=== PATIENT | male | born 1995 | race Caucasian/White ===

== ENCOUNTER 2016-12-02 06:31 | Emergency (ER) | payer SELFPAY ==
[~2016-12-02] VITALS: Ht 182.9 cm; Wt 70.0 kg
[~2016-12-02 06:31] MED LIST: INFL100P IV
[2016-12-02 06:33] VITALS: BP 131/78; PULSE 70; RESP 16; TEMP 98.8; O2SAT 100
[2016-12-02] MEDS ORDERED: SODIUM CHLOR 0.9% 1000 ML INJ 1,000 ML IV SCH (07:04)
[2016-12-02] MEDS ORDERED: ONDANSETRON HCL 4 MG/2 ML VIAL IVP ONE (07:15)
[2016-12-02] MEDS ORDERED: SODIUM CHLORIDE 0.9% FLUSH 10 ML FLUSH IV FLUSH PRN (07:15)
[2016-12-02 07:36] VITALS: BP 108/66; PULSE 75; RESP 15; O2SAT 100
[2016-12-02 07:38] LABS: AUTOMATED NEUTROPHIL # 6.8 TH/MM3 (1.8-7.7); BASOPHIL # 0.1 TH/MM3 (0-0.2); BASOPHIL % 0.6 % (0.0-2.0); EOSINOPHIL # 0.2 TH/MM3 (0-0.4); EOSINOPHIL % 2.3 % (0.0-4.0); HEMATOCRIT 33.1 % (39.0-51.0); HEMO FLAGS DIFF FINAL; LYMPH % 13.5 % (9.0-44.0); LYMPHOCYTE # 1.3 TH/MM3 (1.0-4.8); MEAN CELL VOLUME 62.6 FL (80.0-100.0); MEAN CORPUSCULAR HEMOGLOBIN 19.1 PG (27.0-34.0); MEAN CORPUSCULAR HGB CONC 30.5 % (32.0-36.0); MONO % 13.3 % (0.0-8.0); NEUT % 70.3 % (16.0-70.0); PLATELET COUNT 453 TH/MM3 (150-450); RED BLOOD COUNT 5.28 MIL/MM3 (4.50-5.90); WHITE BLOOD COUNT 9.7 TH/MM3 (4.0-11.0)
[2016-12-02 07:52] LABS: APTT (PATIENT) 26.1 SEC (24.3-30.1); PROTHROMBIN TIME - PATIENT 11.4 SEC (9.8-11.6)
--- NOTE | 2016-12-02 07:55 | PD ---
HPI Chief Complaint: GI Complaint Time Seen by Provider: 07:13 Travel History International Travel<30 days: No Contact w/Intl Traveler<30days: No Traveled to known affect area: No History of Present Illness HPI Patient is a 21-year-old male with history of Crohn's disease presents to emergency room for evaluation. Patient reports that he is not taking any medications for his current disease for the past 2 years. Patient reports that he did see a painter ski edge in the past, saw Dr. Osborne and changed to Dr Ramsey when he switched from the pediatric painter ski edge to the adult painter ski edge. Patient reports that he lost insurance as it has not had followed-up for the past 2 years. Patient reports that for the past 2 years, since he stopped taking his medications, he has not been feeling well. Patient reports intermittent abdominal pains with diarrhea. Patient reports that he has been feeling intermittently lightheaded over the past 2 years, reports that he is just concerned that his hemoglobin or his electrolytes may be off. Patient reports no abdominal pain at this time, patient here for generalized evaluation as "I just want to get my labs checked." Patient with no other complaints at this time. PFSH Past Medical History Autoimmune Disease: No Cancer: No Cardiovascular Problems: No Diabetes: No Diminished Hearing: No Gastrointestinal Disorders: Yes (POSSIBLE CHRONS OR ULCERATIVE COLITIS) Hepatitis: No Hiatal Hernia: No Medical other: Yes (ULCERATIVE COLITIS) Musculoskeletal: No Neurologic: No Psychiatric: No Respiratory: No Immunizations Current: Yes Thyroid Disease: No Tetanus Vaccination: < 5 Years Influenza Vaccination: No PNEUMOCCOCAL Vaccine (Year): 2 Past Surgical History Abdominal Surgery: Yes (COLONOSCOPYS) Cardiac Surgery: No Ear Surgery: No Eye Surgery: No Genitourinary Surgery: No Neurologic Surgery: No Thoracic Surgery: No Other Surgery: Yes (COLONOSCOPY 09) Social History Alcohol Use: Yes (occ) Tobacco Use: No Substance Use: No Allergies-Medications (Allergen,Severity, Reaction): Coded Allergies: No Known Allergies (Verified , 12/02/16) Reported Meds & Prescriptions Reported Meds & Active Scripts Active No Active Prescriptions or Reported Medications Review of Systems General / Constitutional: No: Fever Eyes: No: Visual changes HENT: No: Headaches Cardiovascular: No: Chest Pain or Discomfort Respiratory: No: Shortness of Breath Gastrointestinal: No: Nausea, Vomiting, Diarrhea, Abdominal Pain, Hematochezia , Constipation Genitourinary: No: Dysuria Musculoskeletal: No: Pain Skin: No Rash Neurologic: Positive: Weakness Psychiatric: No: Depression Endocrine: No: Polydipsia Hematologic/Lymphatic: No: Easy Bruising Physical Exam Narrative GENERAL: No acute distress, nontoxic SKIN: Focused skin assessment warm/dry. HEAD: Atraumatic. Normocephalic. EYES: Pupils equal and round. No scleral icterus. No injection or drainage. ENT: No nasal bleeding or discharge. Mucous membranes pink and moist. NECK: Trachea midline. No JVD. CARDIOVASCULAR: Regular rate and rhythm. No murmur appreciated. RESPIRATORY: No accessory muscle use. Clear to auscultation. Breath sounds equal bilaterally. GASTROINTESTINAL: Abdomen soft, non-tender, nondistended. Hepatic and splenic margins not palpable. MUSCULOSKELETAL: No obvious deformities. No clubbing. No cyanosis. No edema. NEUROLOGICAL: Awake and alert. No obvious cranial nerve deficits. Motor grossly within normal limits. Normal speech. PSYCHIATRIC: Appropriate mood and affect; insight and judgment normal. Data Data Last Documented VS Vital Signs Date Time Temp Pulse Resp B/P Pulse Ox O2 Delivery O2 Flow Rate FiO2 12/02/16 07:36 75 15 108/66 100 Room Air 12/02/16 06:33 98.8 Orders Complete Blood Count With Diff (12/02/16 07:04) Comprehensive Metabolic Panel (12/02/16 07:04) Lipase (12/02/16 07:04) Prothrombin Time / Inr (Pt) (12/02/16 07:04) Act Partial Throm Time (Ptt) (12/02/16 07:04) Urinalysis - C+S If Indicated (12/02/16 07:04) Iv Access Insert/Monitor (12/02/16 07:04) Ecg Monitoring (12/02/16 07:04) Oximetry (12/02/16 07:04) Ondansetron Inj (Zofran Inj) (12/02/16 07:15) Sodium Chlor 0.9% 1000 Ml Inj (Ns 1000 M (12/02/16 07:04) Sodium Chloride 0.9% Flush (Ns Flush) (12/02/16 07:15) Drug Screen, Random Urine (12/02/16 07:04) Mandatory Outpatient Referral (12/02/16 07:55) Electrocardiogram (12/02/16 ) Labs Laboratory Tests Test 12/02/16 12/02/16 07:25 09:25 White Blood Count 9.7 TH/MM3 Red Blood Count 5.28 MIL/MM3 Hemoglobin 10.1 GM/DL Hematocrit 33.1 % Mean Corpuscular Volume 62.6 FL Mean Corpuscular Hemoglobin 19.1 PG Mean Corpuscular Hemoglobin 30.5 % Concent Red Cell Distribution Width 19.0 % Platelet Count 453 TH/MM3 Mean Platelet Volume 7.3 FL Neutrophils (%) (Auto) 70.3 % Lymphocytes (%) (Auto) 13.5 % Monocytes (%) (Auto) 13.3 % Eosinophils (%) (Auto) 2.3 % Basophils (%) (Auto) 0.6 % Neutrophils # (Auto) 6.8 TH/MM3 Lymphocytes # (Auto) 1.3 TH/MM3 Monocytes # (Auto) 1.3 TH/MM3 Eosinophils # (Auto) 0.2 TH/MM3 Basophils # (Auto) 0.1 TH/MM3 CBC Comment DIFF FINAL Differential Comment Prothrombin Time 11.4 SEC Prothromb Time International 1.0 RATIO Ratio Activated Partial 26.1 SEC Thromboplast Time Sodium Level 141 MEQ/L Potassium Level 3.6 MEQ/L Chloride Level 104 MEQ/L Carbon Dioxide Level 30.1 MEQ/L Anion Gap 7 MEQ/L Blood Urea Nitrogen 11 MG/DL Creatinine 1.04 MG/DL Estimat Glomerular Filtration 89 ML/MIN Rate Random Glucose 94 MG/DL Calcium Level 8.7 MG/DL Total Bilirubin 0.2 MG/DL Aspartate Amino Transf 9 U/L (AST/SGOT) Alanine Aminotransferase 17 U/L (ALT/SGPT) Alkaline Phosphatase 100 U/L Total Protein 7.6 GM/DL Albumin 3.3 GM/DL Lipase 111 U/L Urine Color YELLOW Urine Turbidity CLEAR Urine pH 6.0 Urine Specific [place] 1.023 Urine Protein NEG mg/dL Urine Glucose (UA) NEG mg/dL Urine Ketones NEG mg/dL Urine Occult Blood NEG Urine Nitrite NEG Urine Bilirubin NEG Urine Urobilinogen LESS THAN 2.0 MG/DL Urine Leukocyte Esterase NEG Urine RBC LESS THAN 1 /hpf Urine WBC 2 /hpf Urine Mucus FEW /lpf Microscopic Urinalysis Comment CULT NOT INDICATED MDM Medical Decision Making Medical Screen Exam Complete: Yes Emergency Medical Condition: Yes Interpretation(s) EKG at 0825: NSR at 66bpm, qt/qtc: 387/401, no acute st or t wave changes Vital Signs Date Time Temp Pulse Resp B/P Pulse Ox O2 Delivery O2 Flow Rate FiO2 12/02/16 07:36 75 15 108/66 100 Room Air 12/02/16 06:38 16 12/02/16 06:33 98.8 70 16 131/78 100 Room Air Differential Diagnosis Crohn's disease, electrolyte abnormality, anemia Narrative Course 21-year-old male with history of Crohn disease, presents to emergency room for a generalized evaluation. Patient reports that he has not taken any of his medications for Crohn's and has not seen a painter ski edge in the past 2 years due to lack of insurance and medication noncompliance. Patient reports that some of his medicines made him feel sick, he did admit that Remicade did help with the symptoms but since he lost insurance, he has not follow-up with a physician to obtain a prescription. Patient reports that his symptoms have been progressing over the past 2 years, reports that he wanted to come to the emergency room for general labs and to "make sure everything is okay." I discussed with the patient that he will need to follow-up with a painter ski edge for further workup of his Crohn's disease, he understands this but reports no insurance. Plan to order a mandatory GI evaluation as outpt. Hemoglobin 10.1, hematocrit 33.1, platelets 351 bmp: wnl coag's" wnl UA: wnl VSS Patient with no abdominal pain at this time were throughout his emergency room visit. A mandatory consult was placed for painter ski edge. Patient will return to the ER as needed. Signs and symptoms of acute abdomen reviewed with patient Diagnosis Primary Impression: Anemia Qualified Code: D64.9 - Anemia, unspecified type Additional Impression: Crohn disease Qualified Code: K50.919 - Crohn's disease with complication, unspecified gastrointestinal tract location Referrals: Ravi Govea MD Patient Instructions: General Instructions Additional Instructions: Please provide patient with a copy of his labwork at discharge Please follow-up with a painter ski edge as soon as possible A mandatory gastroenterology appointment was ordered while you are at [place] today Please return to the emergency room as needed Scripts No Active Prescriptions or Reported Meds Disposition: 01 DISCHARGE HOME Condition: Stable Elana Galarza DO December 02, 2016 07:55
[2016-12-02 08:04] LABS: ALT (GPT) 17 U/L (12-78); ANION GAP 7 MEQ/L (5-15); AST (GOT) 9 U/L (15-37); BICARBONATE 30.1 MEQ/L (21.0-32.0); BLOOD UREA NITROGEN 11 MG/DL (7-18); CHLORIDE 104 MEQ/L (98-107); GLOMERULAR FILTRATION RATE 89 ML/MIN (>89); POTASSIUM 3.6 MEQ/L (3.5-5.1); SODIUM (NA) 141 MEQ/L (136-145)
[2016-12-02 08:05] LABS: ALKALINE PHOSPHATASE 100 U/L (45-117); TOTAL BILIRUBIN ADULT 0.2 MG/DL (0.2-1.0)
[2016-12-02 09:51] LABS: BLOOD, URINE NEG (NEG); COMMENT (UR) CULT NOT INDICATED; CULTURE IF INDICATED CULT NOT INDICATED; GLUCOSE,URINE NEG (NEG); KETONE, URINE NEG (NEG); MUCUS URINE FEW /lpf (OCC); NITRITE,URINE NEG (NEG); URINE COLOR YELLOW (YELLW/STRAW)
[2016-12-02 14:15] LABS: AMPHETAMINE, URINE NEG (NEG); BARBITURATES, URINE NEG (NEG); COCAINE, URINE NEG (NEG)
--- NOTE | 2016-12-03 12:10 | EKG ---
Date Performed: 12/02/2016 Time Performed: 08:25:31 PTAGE: 21 years EKG: Sinus rhythm NORMAL ECG PREVIOUS TRACING : 12/03/2014 22.12 Compared to prior tracing no significant change DOCTOR: Sylvester Ibarra Interpretating Date/Time 12/03/2016 12:09:59
== END 2016-12-02 10:22 | disposition home or self-care (01) ==
LOC: NEPE 06:31
DX: D64.9 Anemia, unspecified (principal); K50.919 Crohn's disease, unspecified, with unspecified complications
CPT/HCPCS: 80053; 80307; 81001; 83690; 85025; 85610; 85730; 93005; 96361; 96374; 99284; J2405; J7030

== ENCOUNTER 2017-03-03 20:40 | Inpatient (IN) | payer OTHER ==
[~2017-03-03] VITALS: Ht 182.9 cm; Wt 67.6 kg
[~2017-03-03 20:40] MED LIST changes: -INFL100P IV; +IOHEXOL 350 MG/ML 10 ML VIAL (for RAD DIAG) IVCONTRAST ONE
[2017-03-03 20:55] VITALS: BP 114/59; PULSE 86; RESP 18; TEMP 98.3; O2SAT 100
[2017-03-03 22:55] VITALS: BP 155/69; PULSE 98; RESP 18
[2017-03-03] MEDS ORDERED: SODIUM CHLOR 0.9% 1000 ML INJ 1,000 ML IV SCH (23:20)
[2017-03-03] MEDS ORDERED: SODIUM CHLORIDE 0.9% FLUSH 10 ML FLUSH IV FLUSH PRN (23:30)
--- NOTE | 2017-03-03 23:47 | PD ---
HPI Chief Complaint: Abdominal Pain Time Seen by Provider: 23:20 Travel History International Travel<30 days: No Contact w/Intl Traveler<30days: No Traveled to known affect area: No History of Present Illness HPI 21-year-old male presents to the emergency department by private transportation for complaint of 3 weeks of sided abdominal pain with approximately 15 pounds of weight loss. Patient reports that he has a history of Crohn's/ulcerative colitis disease denies any mucoid or bloody stools or fever however states has had chills and that he has not been seen by a automobile body customizer in at least 2 or more years. Patient denies any known dietary indiscretion well water ingestion or foreign travel. Patient has had multiple upper and lower endoscopy studies in the past and was told by his last automobile body customizer that he may have pseudo-polyps or had concern of malignant polyps. Patient did not follow-up with his gastrologist. Patient rates pain as moderate to severe. Patient has had left flank pain as well. Patient denies any chest pain pleuritic chest pain or shortness of breath. Patient's had nausea without vomiting. Patient states that he has not had anorexia infections been very hungry but because of his concern of having diarrhea has intentionally decreased his oral intake. [facility] Past Medical History Narrative Medical Inflammatory bowel disease/pathology 2013 Crohn's colitis, colonoscopy, alcohol use, nursing notes reviewed Autoimmune Disease: No Cancer: No Cardiovascular Problems: No Diabetes: No Diminished Hearing: No Gastrointestinal Disorders: Yes ( CHRONS ) Hepatitis: No Hiatal Hernia: No Medical other: Yes (ULCERATIVE COLITIS) Musculoskeletal: No Neurologic: No Psychiatric: No Respiratory: No Immunizations Current: Yes Thyroid Disease: No Influenza Vaccination: No PNEUMOCCOCAL Vaccine (Year): 2 Past Surgical History Abdominal Surgery: Yes (COLONOSCOPYS) Cardiac Surgery: No Ear Surgery: No Eye Surgery: No Genitourinary Surgery: No Neurologic Surgery: No Thoracic Surgery: No Other Surgery: Yes (COLONOSCOPY 09) Social History Alcohol Use: Yes (occ) Tobacco Use: No Substance Use: No Allergies-Medications (Allergen,Severity, Reaction): Coded Allergies: No Known Allergies (Verified , 03/03/17) Reported Meds & Prescriptions Reported Meds & Active Scripts Active No Active Prescriptions or Reported Medications Review of Systems Except as stated in HPI: all other systems reviewed are Neg General / Constitutional: Positive: Chills, Weight Loss, No: Fever HENT: No: Congestion Cardiovascular: No: Chest Pain or Discomfort Respiratory: No: Shortness of Breath Gastrointestinal: Positive: Nausea, Diarrhea, Abdominal Pain, No: Vomiting, Hematemesis, Hematochezia, Loss of Appetite Genitourinary: No: Dysuria, Decreased Urinary Output Musculoskeletal: No: Pain Skin: No Rash Neurologic: No: Weakness, Dizziness Psychiatric: No: Anxiety Endocrine: No: Heat Intolerance Hematologic/Lymphatic: No: Easy Bruising Physical Exam Narrative GENERAL: Well-developed well-nourished male in no acute distress no respiratory distress SKIN: Warm and dry. HEAD: Normocephalic. EYES: No scleral icterus. No injection or drainage. NECK: Supple, trachea midline. No JVD or lymphadenopathy. CARDIOVASCULAR: Regular rate and rhythm without murmurs, gallops, or rubs. RESPIRATORY: Breath sounds equal bilaterally. No accessory muscle use. GASTROINTESTINAL: Abdomen soft, left lower quadrant tenderness to palpation without guarding or rebound, nondistended. MUSCULOSKELETAL: No cyanosis, or edema. BACK: Nontender without obvious deformity. No CVA tenderness. Data Data Last Documented VS Vital Signs Date Time Temp Pulse Resp B/P (MAP) Pulse Ox O2 Delivery O2 Flow Rate FiO2 03/04/17 01:18 101.0 98 18 144/78 (100) 100 Room Air Orders Orders Complete Blood Count With Diff (03/03/17 23:20) Comprehensive Metabolic Panel (03/03/17 23:20) Lipase (03/03/17 23:20) Lactic Acid (03/03/17 23:20) Prothrombin Time / Inr (Pt) (03/03/17 23:20) Act Partial Throm Time (Ptt) (03/03/17 23:20) Urinalysis - C+S If Indicated (03/03/17 23:20) Iv Access Insert/Monitor (03/03/17 23:20) Ecg Monitoring (03/03/17 23:20) Oximetry (03/03/17 23:20) Sodium Chlor 0.9% 1000 Ml Inj (Ns 1000 M (03/03/17 23:20) Sodium Chloride 0.9% Flush (Ns Flush) (03/03/17 23:30) Blood Culture (03/03/17 23:20) Ct Abd/Pel W Iv Contrast(Rout) (03/04/17 23:20) Iohexol 350 Inj (Omnipaque 350 Inj) (03/03/17 12:44) NPO (03/04/17 01:18) Ns (Bolus) Inj (03/04/17 01:30) Piperacil-Tazo 3.375 Gm Premix (Zosyn 3. (03/04/17 01:30) Acetaminophen Supp (Tylenol Supp) (03/04/17 01:30) Ondansetron Inj (Zofran Inj) (03/04/17 01:30) Morphine Inj (Morphine Inj) (03/04/17 01:30) Labs Laboratory Tests Test 03/03/17 23:30 White Blood Count 10.1 TH/MM3 Red Blood Count 5.64 MIL/MM3 Hemoglobin 10.6 GM/DL Hematocrit 35.7 % Mean Corpuscular Volume 63.3 FL Mean Corpuscular Hemoglobin 18.7 PG Mean Corpuscular Hemoglobin Concent 29.6 % Red Cell Distribution Width 18.1 % Platelet Count 474 TH/MM3 Mean Platelet Volume 6.6 FL Neutrophils (%) (Auto) 81.8 % Lymphocytes (%) (Auto) 6.3 % Monocytes (%) (Auto) 6.9 % Eosinophils (%) (Auto) 2.8 % Basophils (%) (Auto) 2.2 % Neutrophils # (Auto) 8.2 TH/MM3 Lymphocytes # (Auto) 0.6 TH/MM3 Monocytes # (Auto) 0.7 TH/MM3 Eosinophils # (Auto) 0.3 TH/MM3 Basophils # (Auto) 0.2 TH/MM3 CBC Comment AUTO DIFF Differential Comment AUTO DIFF CONFIRMED Platelet Estimate HIGH Platelet Morphology Comment NORMAL Ovalocytes 1+ Prothrombin Time 12.2 SEC Prothromb Time International Ratio 1.1 RATIO Activated Partial Thromboplast Time 28.5 SEC Urine Color YELLOW Urine Turbidity CLEAR Urine pH 5.5 Urine Specific [place] 1.027 Urine Protein NEG mg/dL Urine Glucose (UA) NEG mg/dL Urine Ketones NEG mg/dL Urine Occult Blood NEG Urine Nitrite NEG Urine Bilirubin NEG Urine Leukocyte Esterase NEG Urine RBC 0-3 /hpf Urine WBC 0-2 /hpf Urine Squamous Epithelial Cells 0-5 /hpf Urine Bacteria NONE /hpf Microscopic Urinalysis Comment CULT NOT INDICATED Blood Urea Nitrogen 10 MG/DL Creatinine 0.82 MG/DL Random Glucose 102 MG/DL Total Protein 7.6 GM/DL Albumin 2.6 GM/DL Calcium Level 8.1 MG/DL Alkaline Phosphatase 77 U/L Aspartate Amino Transf (AST/SGOT) 7 U/L Alanine Aminotransferase (ALT/SGPT) 14 U/L Total Bilirubin 0.2 MG/DL Sodium Level 139 MEQ/L Potassium Level 3.8 MEQ/L Chloride Level 104 MEQ/L Carbon Dioxide Level 27.7 MEQ/L Anion Gap 7 MEQ/L Estimat Glomerular Filtration Rate 117 ML/MIN Lactic Acid Level 1.3 mmol/L Lipase 164 U/L [facility] Medical Decision Making Medical Screen Exam Complete: Yes Emergency Medical Condition: Yes Medical Record Reviewed: Yes Interpretation(s) Last Impressions Abdomen/Pelvis CT 03/04/170 Signed Impressions: Service Date/Time: February 00:26 - CONCLUSION: 1. Severe colitis of the left colon associated with extensive inflammatory changes and probable partial obstruction with constipation in the transverse colon and right colon. 2. Mildly distended appendix without significant inflammatory change. Cannot exclude an early appendicitis. Don Rose MD CBC & BMP Diagram 03/03/17 23:30 Total Protein 7.6, Albumin 2.6 L, Calcium Level 8.1 L, Alkaline Phosphatase 77, Aspartate Amino Transf (AST/SGOT) 7 L, Alanine Aminotransferase (ALT/SGPT) 14, Total Bilirubin 0.2 Vital Signs Date Time Temp Pulse Resp B/P (MAP) Pulse Ox O2 Delivery O2 Flow Rate FiO2 03/04/17 00:18 100.0 88 18 141/65 (90) 100 Room Air 03/04/17 00:18 100 Room Air 03/03/17 22:55 98 18 155/69 (97) 03/03/17 20:55 98.3 86 18 114/59 (77) 100 Differential Diagnosis Abdominal pain, colitis/exacerbation of inflammatory bowel disease, abscess, UTI Narrative Course IV access obtained specimens collected and sent for resulting patient given fluid bolus At 1:10 AM blood pressure 144/67 heart rate 94 respiratory rate 18 room air O2 saturation 98%; CT abdomen and pelvis resulted remarkable for marked inflammatory changes of the transverse and ascending colon concern for possible early bowel obstruction also noted appendix is noted as upper limit of normal in size however without inflammatory stranding or changes possible early appendicitis CBC was automated differential total white cell count is normal at 10,100 left shift 81.8% by automated differential mild anemia hemoglobin 10.3 with 35.7% hematocrit platelet count within normal range; complete metabolic panel values are grossly within normal limits; lactic acid is not elevated at 1.3 Patient at 1:20 AM was identified to have a temperature of 10 1F; in view of radiologist reading for possible early appendicitis patient will be kept nothing by mouth additional IV fluid bolus administered 1 L as well as antibiotic Zosyn 3.375 g IV piggyback also administered 1 Tylenol suppository 650 mg rectally and patient will be given a one-time dose of Zofran 4 mg IV and morphine sulfate 2 mg IV. At this point in time patient most likely is presenting a stone history and presentation in location of pain with acute exacerbation of inflammatory bowel disease/ulcerative colitis with severe colitis by imaging study without evidence of perforation or abscess but concern for partial small bowel obstruction however in view of report of early appendicitis well discussed case with [facility] consultant general surgeon; patient is aware that he will be admitted for ongoing bowel rest, IV antibiotics, pain management , antipyretics, and IV fluids. Physician Communication Physician Communication call placed to Gen Surgery --consult in AM for r/o appendicitis; call placed to [facility] service Diagnosis Primary Impression: Acute ulcerative colitis Qualified Codes: K51.919 - Ulcerative colitis, unspecified with unspecified complications Additional Impression: Small bowel obstruction, partial Admitting Information Admitting Physician Requests: Admit Scripts No Active Prescriptions or Reported Meds Sharon Roman MD Mar 03, 2017 23:47
[2017-03-03 23:57] LABS: BLOOD, URINE NEG (NEG); GLUCOSE,URINE NEG (NEG); KETONE, URINE NEG (NEG); NITRITE,URINE NEG (NEG); PH, URINE 5.5 (5.0-8.5)
[2017-03-03 23:58] LABS: AUTOMATED NEUTROPHIL # 8.2 TH/MM3 (1.8-7.7); BASOPHIL # 0.2 TH/MM3 (0-0.2); BASOPHIL % 2.2 % (0.0-2.0); EOSINOPHIL # 0.3 TH/MM3 (0-0.4); EOSINOPHIL % 2.8 % (0.0-4.0); HEMATOCRIT 35.7 % (39.0-51.0); LYMPH % 6.3 % (9.0-44.0); LYMPHOCYTE # 0.6 TH/MM3 (1.0-4.8); MEAN CELL VOLUME 63.3 FL (80.0-100.0); MEAN CORPUSCULAR HEMOGLOBIN 18.7 PG (27.0-34.0); MONO % 6.9 % (0.0-8.0); NEUT % 81.8 % (16.0-70.0); PLATELET COUNT 474 TH/MM3 (150-450); RED BLOOD COUNT 5.64 MIL/MM3 (4.50-5.90); RED CELL DISTRIBUTION WIDTH 18.1 % (11.6-17.2); WHITE BLOOD COUNT 10.1 TH/MM3 (4.0-11.0)
[2017-03-03 23:59] LABS: HEMO FLAGS AUTO DIFF; MEAN CORPUSCULAR HGB CONC 29.6 % (32.0-36.0)
[2017-03-04] VITALS (25 sets, daily range): BP systolic 96–144; BP diastolic 45–78; PULSE 66–104; RESP 11–28; TEMP 98.2–101.9; O2SAT 98–100
[2017-03-04 00:05] LABS: URINE COLOR YELLOW (YELLW/STRAW)
[2017-03-04 00:06] LABS: CHLORIDE 104 MEQ/L (98-107); COMMENT (UR) CULT NOT INDICATED; CULTURE IF INDICATED CULT NOT INDICATED; POTASSIUM 3.8 MEQ/L (3.5-5.1); RBC, URINE 0-3 /hpf (0-3); SODIUM (NA) 139 MEQ/L (136-145); SQUAMOUS EPITHELIAL CELL URINE 0-5 /hpf (0-5); WBC, URINE 0-2 /hpf (0-5)
[2017-03-04 00:10] LABS: ANION GAP 7 MEQ/L (5-15); APTT (PATIENT) 28.5 SEC (24.3-30.1); BICARBONATE 27.7 MEQ/L (21.0-32.0); BLOOD UREA NITROGEN 10 MG/DL (7-18); INTERNATIONAL NORMALIZED RATIO 1.1 RATIO; PROTHROMBIN TIME - PATIENT 12.2 SEC (9.8-11.6)
[2017-03-04 00:13] LABS: ALT (GPT) 14 U/L (12-78); AST (GOT) 7 U/L (15-37); GLOMERULAR FILTRATION RATE 117 ML/MIN (>89)
[2017-03-04 00:15] LABS: TOTAL BILIRUBIN ADULT 0.2 MG/DL (0.2-1.0)
[2017-03-04 00:16] LABS: ALKALINE PHOSPHATASE 77 U/L (45-117)
[2017-03-04 00:22] LABS: OVALOCYTES 1+ (NORMAL); PLATELET ESTIMATE SMEAR HIGH (NORMAL); PLATELET MORPHOLOGY NORMAL (NORMAL); SCAN/DIFF AUTO DIFF CONFIRMED
--- NOTE | 2017-03-04 00:57 | RADRPT ---
EXAM DATE/TIME: 03/04/2017 00:26 [facility] COMPARISON: No previous studies available for comparison. INDICATIONS : Left lower quadrant pain, especially around bladder area on and off for three weeks. IV CONTRAST: 100 cc Omnipaque 350 (iohexol) IV ORAL CONTRAST: No oral contrast ingested. RADIATION DOSE: 5.62 CTDIvol (mGy) MEDICAL HISTORY : Crohn's disease. ulcerative colitis SURGICAL HISTORY : None. ENCOUNTER: Initial ACUITY: 3 weeks PAIN SCALE: 2/10 LOCATION: Left lower quadrant abdomen TECHNIQUE: Volumetric scanning of the abdomen and pelvis was performed. Using automated exposure control and ad justment of the mA and/or kV according to patient size, radiation dose was kept as low as reasonably achievable to obtain optimal diagnostic quality images. DICOM format image data is available electro nically for review and comparison. FINDINGS: There is a severe left-sided colitis with marked mural thickening of the left colon, extensive kike lonic fat stranding and some pericolonic fluid and a probable partial obstruction with constipation t he transverse colon and right colon. The appendix is also mildly distended to about 11 mm but without significant periappendiceal inflammatory change identified. Lung bases are clear. No focal abnormality in the liver, spleen, adrenals, kidneys or pancreas. No calcified gallstones or biliary ductal dilatation. No acute bony abnormality. CONCLUSION: 1. Severe colitis of the left colon associated with extensive inflammatory changes and probable parti al obstruction with constipation in the transverse colon and right colon. 2. Mildly distended appendix without significant inflammatory change. Cannot exclude an early appendi citis. Don Rose MD on March 04, 2017 at 0:48 Board Certified Radiologist. This report was verified electronically.
[2017-03-04] MEDS ORDERED: PIPERACIL-TAZO 3.375 GM PREMIX 50 ML IV ONE (01:30)
[2017-03-04] MEDS ORDERED: ONDANSETRON HCL 4 MG/2 ML VIAL IV PUSH ONE (01:30)
[2017-03-04] MEDS ORDERED: SODIUM CHLOR 0.9% 1000 ML INJ 1,000 ML IV ONE (01:30)
[2017-03-04] MEDS ORDERED: MORPHINE SULFATE 4 MG/ML INJ IV PUSH ONE (01:30)
[2017-03-04] MEDS ORDERED: ACETAMINOPHEN 650 MG SUPP RECTAL ONE (01:30)
[2017-03-04] MEDS ORDERED: SODIUM CHLORIDE 0.9% FLUSH 10 ML FLUSH IV FLUSH PRN (01:45)
[2017-03-04] MEDS ORDERED: ONDANSETRON HCL 4 MG/2 ML VIAL IVP PRN (01:45)
[2017-03-04] MEDS ORDERED: SODIUM CHLORIDE 0.9% FLUSH 10 ML FLUSH IVF PRN (01:45)
[2017-03-04] MEDS ORDERED: NALOXONE HCL 0.4 MG/ML AMP IV PRN (01:45)
[2017-03-04] MEDS: SODIUM CHLOR 0.9% 1000 ML INJ 1,000 ML IV SCH ×3 (04:32→17:53)
[2017-03-04] MEDS ORDERED: SODIUM CHLORIDE 0.9% FLUSH 10 ML FLUSH IV FLUSH SCH (09:00)
[2017-03-04] MEDS: SODIUM CHLORIDE 0.9% FLUSH 10 ML FLUSH IV FLUSH SCH (09:00)
[2017-03-04] MEDS ORDERED: MORPHINE SULFATE 4 MG/ML INJ IV PUSH PRN (14:00)
--- NOTE | 2017-03-04 14:11 | HHI.HP ---
[facility] Service [facility] Primary Care Physician No Primary Care Physician Admission Diagnosis acute colitis; partial SBO; r/o early appendicitis Diagnoses: Chief Complaint: abd pain Travel History International Travel<30 Days: No Contact w/Intl Traveler <30 Da: No Traveled to Known Affected Are: No History of Present Illness 21 year old male with IBD who has had 3 weeks of abd pain and loose stool. Pain is severe and worse with eating and better with defacation No nausea or vomiting NO fever at home (fever in ER) Pain ia better with IV morphine He has been lost to follow up due to personal nonadherence Review of Systems Constitutional: COMPLAINS OF: Weight loss, DENIES: Diaphoretic episodes, Fatigue, Fever, Weight gain, Chills, Dizziness, Change in appetite, Night Sweats Endocrine: DENIES: Heat/cold intolerance, Polydipsia, Polyuria, Polyphagia Eyes: DENIES: Blurred vision, Diplopia, Eye inflammation, Eye pain, Vision loss , Photosensitivity, Double Vision Ears, nose, mouth, throat: DENIES: Tinnitus, Hearing loss, Vertigo, Nasal discharge, Oral lesions, Throat pain, Hoarseness, Ear Pain, Running Nose, Epistaxis, Sinus Pain, Toothache, Odynophagia Respiratory: DENIES: Apneas, Cough, Snoring, Wheezing, Hemoptysis, Sputum production, Shortness of breath Cardiovascular: DENIES: Chest pain, Palpitations, Syncope, Dyspnea on Exertion , PND, Lower Extremity Edema, Orthopnea, Claudication Gastrointestinal: COMPLAINS OF: Abdominal pain, Diarrhea, DENIES: Black stools , Bloody stools, Constipation, Nausea, Vomiting, Difficulty Swallowing, Anorexia Genitourinary: DENIES: Sexual dysfunction, Urinary frequency, Urinary incontinence, Urgency, Hematuria, Dysuria, Nocturia, Penile Discharge, Testicular Pain, Testicular Swelling Musculoskeletal: DENIES: Joint pain, Muscle aches, Stiffness, Joint Swelling, Back pain, Neck pain Hematologic/lymphatic: DENIES: Bruising, Lymphadenopathy Immunologic/allergic: DENIES: Eczema, Urticaria Neurologic: DENIES: Abnormal gait, Headache, Localized weakness, Paresthesias, Seizures, Speech Problems, Tremor, Poor Balance Psychiatric: DENIES: Anxiety, Confusion, Mood changes, Depression, Hallucinations, Agitation, Suicidal Ideation, Homicidal Ideation, Delusions Except as stated in HPI: all other systems reviewed are Neg Past Family Social History Past Medical History IBD (unsre of type) x 2yrs Past Surgical History abscess drainage in rectum Allergies: Coded Allergies: No Known Allergies (Verified , 03/03/17) Active Ordered Medications reviewed in the EMR Family History no IBD, everyone is healthy Social History 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 Physical Exam Vital Signs Vital Signs Date Time Temp Pulse Resp B/P (MAP) Pulse Ox O2 Delivery O2 Flow Rate FiO2 03/04/17 10:10 98.9 74 18 104/54 (71) 98 03/04/17 07:08 99.4 88 18 109/64 (79) 98 Room Air 03/04/17 05:03 101.4 91 18 117/61 (79) 99 Room Air 03/04/17 02:45 100 21 03/04/17 02:14 101.9 104 18 110/62 (78) 100 Room Air 03/04/17 01:18 101.0 98 18 144/78 (100) 100 Room Air 03/04/17 00:18 100.0 88 18 141/65 (90) 100 Room Air 03/04/17 00:18 100 Room Air 03/03/17 22:55 98 18 155/69 (97) 03/03/17 20:55 98.3 86 18 114/59 (77) 100 Physical Exam GENERAL: This is a frail, pale male SKIN: No rashes, ecchymoses or lesions. Cool and dry. HEAD: Atraumatic. Normocephalic. No temporal or scalp tenderness. EYES: Pupils equal round and reactive. Extraocular motions intact. No scleral icterus. No injection or drainage. ENT: Nose without bleeding, purulent drainage or septal hematoma. Throat without erythema, tonsillar hypertrophy or exudate. Uvula midline. Airway patent. NECK: Trachea midline. No JVD or lymphadenopathy. Supple, nontender, no meningeal signs. CARDIOVASCULAR: Regular rate and rhythm without murmurs, gallops, or rubs. RESPIRATORY: Clear to auscultation. Breath sounds equal bilaterally. No wheezes , rales, or rhonchi. GASTROINTESTINAL: Abdomen soft, minimally tender, nondistended. No hepato- splenomegaly, or palpable masses. No guarding. MUSCULOSKELETAL: Extremities without clubbing, cyanosis, or edema. No joint tenderness, effusion, or edema noted. No calf tenderness. Negative Homans sign bilaterally. NEUROLOGICAL: Awake and alert. Cranial nerves II through XII intact. Motor and sensory grossly within normal limits. Five out of 5 muscle strength in all muscle groups. Normal speech. Laboratory Laboratory Tests Test 03/03/17 23:30 White Blood Count 10.1 Red Blood Count 5.64 Hemoglobin 10.6 Hematocrit 35.7 Mean Corpuscular Volume 63.3 Mean Corpuscular Hemoglobin 18.7 Mean Corpuscular Hemoglobin Concent 29.6 Red Cell Distribution Width 18.1 Platelet Count 474 Mean Platelet Volume 6.6 Neutrophils (%) (Auto) 81.8 Lymphocytes (%) (Auto) 6.3 Monocytes (%) (Auto) 6.9 Eosinophils (%) (Auto) 2.8 Basophils (%) (Auto) 2.2 Neutrophils # (Auto) 8.2 Lymphocytes # (Auto) 0.6 Monocytes # (Auto) 0.7 Eosinophils # (Auto) 0.3 Basophils # (Auto) 0.2 CBC Comment AUTO DIFF Differential Comment AUTO DIFF CONFIRMED Platelet Estimate HIGH Platelet Morphology Comment NORMAL Ovalocytes 1+ Prothrombin Time 12.2 Prothromb Time International Ratio 1.1 Activated Partial Thromboplast Time 28.5 Urine Color YELLOW Urine Turbidity CLEAR Urine pH 5.5 Urine Specific Sod 1.027 Urine Protein NEG Urine Glucose (UA) NEG Urine Ketones NEG Urine Occult Blood NEG Urine Nitrite NEG Urine Bilirubin NEG Urine Leukocyte Esterase NEG Urine RBC 0-3 Urine WBC 0-2 Urine Squamous Epithelial Cells 0-5 Urine Bacteria NONE Microscopic Urinalysis Comment CULT NOT INDICATED Blood Urea Nitrogen 10 Creatinine 0.82 Random Glucose 102 Total Protein 7.6 Albumin 2.6 Calcium Level 8.1 Alkaline Phosphatase 77 Aspartate Amino Transf (AST/SGOT) 7 Alanine Aminotransferase (ALT/SGPT) 14 Total Bilirubin 0.2 Sodium Level 139 Potassium Level 3.8 Chloride Level 104 Carbon Dioxide Level 27.7 Anion Gap 7 Estimat Glomerular Filtration Rate 117 Lactic Acid Level 1.3 Lipase 164 Date/Time Source Procedure Growth Status 03/03/17 23:45 Blood Peripheral Aerobic Blood Culture - Preliminary NO GROWTH IN 1 DAY Resulted 03/03/17 23:45 Blood Peripheral Anaerobic Blood Culture - Preliminary NO GROWTH IN 1 DAY Resulted Result Diagram: 8/30/17 2330 03/03/17 2330 Imaging Last Impressions Abdomen/Pelvis CT 03/04/170 Signed Impressions: Service Date/Time: February 00:26 - CONCLUSION: 1. Severe colitis of the left colon associated with extensive inflammatory changes and probable partial obstruction with constipation in the transverse colon and right colon. 2. Mildly distended appendix without significant inflammatory change. Cannot exclude an early appendicitis. Don Rose MD Caprinsaloni VTE Risk Assessment Caprini VTE Risk Assessment: No/Low Risk (score <= 1) Caprini Risk Assessment Model Point Value = 1 Point Value = 2 Point Value = 3 Point Value = 5 Age 41-60 Minor surgery BMI > 25 kg/m2 Swollen legs Varicose veins or History of unexplained or recurrent spontaneous Oral contraceptives or hormone replacement Sepsis (< 1 month) Serious lung disease, including pneumonia (< 1 month) Abnormal pulmonary function Acute myocardial infarction Congestive heart failure (< 1 month) History of inflammatory bowel disease Medical patient at bed rest Age 61-74 Arthroscopic surgery Major open surgery (> 45 min) Laparoscopic surgery (> 45 min) Malignancy Confined to bed (> 72 hours) Immobilizing plaster cast Central venous access Age >= 75 History of VTE Family history of VTE Factor V Leiden Prothrombin [id number] Lupus anticoagulant Anticardiolipin antibodies Elevated serum homocysteine Heparin-induced thrombocytopenia Other congenital or acquired thrombophilia Stroke (< 1 month) Elective arthroplasty Hip, pelvis, or leg fracture Acute spinal cord injury (< 1 month) Prophylaxis Regimen Total Risk Factor Score Risk Level Prophylaxis Regimen 0-1 Low Early ambulation 2 Moderate Order ONE of the following: *Sequential Compression Device (SCD) *Heparin 5000 units SQ BID 3-4 Higher Order ONE of the following medications: *Heparin 5000 units SQ TID *Enoxaparin/Lovenox 40 mg SQ daily (WT < 150 kg, CrCl > 30 mL/min) *Enoxaparin/Lovenox 30 mg SQ daily (WT < 150 kg, CrCl > 10-29 mL/min) *Enoxaparin/Lovenox 30 mg SQ BID (WT < 150 kg, CrCl > 30 mL/min) AND/OR *Sequential Compression Device (SCD) 5 or more Highest Order ONE of the following medications: *Heparin 5000 units SQ TID (Preferred with Epidurals) *Enoxaparin/Lovenox 40 mg SQ daily (WT < 150 kg, CrCl > 30 mL/min) *Enoxaparin/Lovenox 30 mg SQ daily (WT < 150 kg, CrCl > 10-29 mL/min) *Enoxaparin/Lovenox 30 mg SQ BID (WT < 150 kg, CrCl > 30 mL/min) AND *Sequential Compression Device (SCD) Assessment and Plan Problem List: (1) Inflammatory bowel disease ICD Code: K52.9 - Noninfective gastroenteritis and colitis, unspecified Plan: Non-adherent patient with sepsis (hr, fever, source) Wt loss, pain, bloody stools Empiric ABX +BM in hospital, severe inflammation in imaging with rather benight abd Pain control, Gi to see will reinforce treatment plans with patient IV morphine prn (2) Anemia ICD Code: D64.9 - Anemia, unspecified Status: Acute Plan: work up in progress likely malabsorption related Hx or low iron Code Status full code 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 In the case of services not specified as inpatient-only, they are appropriately provided as inpatient services in accordance with the 2-midnight benchmark. Estimated LOS (days): 3 3 days is the estimated time the patient will need to remain in the hospital, assuming treatment plan goals are met and no additional complications. Post-Hospital Plan: Rita Cameron MD Mar 04, 2017 14:11
[2017-03-04 16:11] LABS: TRANSFERRIN IRON PROFILE 213 MG/DL (200-360)
[2017-03-04] MEDS ORDERED: PEG (High)/E-LYTE SOLN 4000 ML BTL PO ONE (16:45)
--- NOTE | 2017-03-04 17:10 | MB ---
cc: MT ERNST MD DATE OF CONSULTATION: 03/04/2017 REASON FOR CONSULTATION: Rule out acute appendicitis. HISTORY OF PRESENT ILLNESS The patient is a 21-year-old male with history of inflammatory bowel disease for the past nine years. The patient has had multiple flare-ups and has been on multiple medications. The patient presents with acute onset of several weeks' history of abdominal pain. He states the pain was initially a 5/10 now a 7/10, it is achy, located on the left side some radiation to the mid and right side abdomen. The patient came to emergency department further evaluation including CT scan showing thickened inflamed colon along with concern for dilated appendix given proximity to colon inflammation. Surgery was consulted to rule out acute appendicitis. On my exam the patient has very minimal right lower quadrant pain. He is complained of significant pain to the left lower quadrant upper quadrant. He states he has had of fevers, T-max of 101.9. He has had several flare-ups multiple in the last several weeks. He states he is not currently taking any medications and in fact is not seen a physician for approximately 2.5 years or treatment for this. He also has a multiple bowel movements sometimes up to every hour with diarrhea. He denies any significant surgical history but has multiple colonoscopies in the past. PAST MEDICAL HISTORY Inflammatory bowel disease for approximately 9 years. PAST SURGICAL HISTORY Colonoscopies SOCIAL HISTORY Occasional EtOH denies smoking or IVDA. ALLERGIES NO KNOWN DRUG ALLERGIES. MEDICATIONS See EMR. FAMILY HISTORY Denies diabetes or hypertension. REVIEW OF SYSTEMS IN GENERAL: Fever or weight loss. HEAD, EYES, EARS, NOSE, AND THROAT: Denies eye pain, ear pain. HEART: Denies chest pain or palpitation. LUNGS: Denies cough or wheeze. ABDOMEN: Complains of nausea, vomiting, diarrhea, abdominal pain. : Denies dysuria, hematuria. MUSCULOSKELETAL: Denies arthralgia, myalgia. SKIN: Denies rash. PSYCHIATRIC: Denies anxiety or change in mood. HEMATOLOGIC: Denies easy bruising. PHYSICAL EXAMINATION GENERAL: The patient in no acute distress. VITAL SIGNS: Temperature 101, pulse 98, respiration 18, blood pressure 144/78, pulse 100. HEAD, EYES, EARS, NOSE, AND THROAT: Pupils equal round reactive. Normocephalic, atraumatic. NECK: Supple. Trachea midline. LUNGS: Clear to auscultation bilateral expansion. HEART: S1-S2 regular rhythm. ABDOMEN: Soft. Positive tenderness palpation left upper and lower quadrants. Minimal palpation right lower quadrant. No rebound, nondistended. EXTREMITIES: Warm, well-perfused. BACK: Normal curvature. No step-offs. NEUROLOGIC: AO x three. 5/5 motor all extremities. INTEGUMENT: No obvious masses or lesions. LABORATORY AND DIAGNOSTIC DATA WBC 10, hemoglobin 10.6, hematocrit 35.7, platelets 474, sodium 139, potassium 3.8, chloride 104, BUN 10, creatinine 0.82, AST 70, ALT 14, alk phos 77, albumin 2.6, lipase 164, INR is 1.1. CT reviewed by myself showing severe colitis left colon Associated with inflammatory changes, possible partial obstruction constipation in transverse colon, mildly dilated appendix. No inflammatory changes appendix ASSESSMENT The patient 21-year-old male acute inflammatory bowel disease flare up low likelihood of acute appendicitis. PLAN After full clinical radiologic laboratory workup the patient above-named issues including a recurrent flare of his inflammatory bowel disease. Recommend medical management for this including a steroids, possible ASA, consider <<5:41>> and inflammatory bowel disease treatment. Continue IV hydration and the patient is significant weight loss unable to take p.o. consider TPN if the patient develops subsequent nausea, vomiting we will consider placing a G tube. As for the appendix, the patient really has low likelihood of having acute appendicitis. This is likely reactive due to his inflammatory bowel disease. Discussed with the patient in detail states understanding and agrees. We will continue to follow. Will continue nonoperative management at this time, for further IVDA management. Again recommend possible GI workup. Thank you for consultation. MD MITRA Larios/saniya /12:21 PM /4:59 PM
[2017-03-04] MEDS: MESALAMINE HD 800 MG DELAYED RELEASE TAB PO SCH (17:17)
[2017-03-05] VITALS (36 sets, daily range): BP systolic 106–123; BP diastolic 57–68; PULSE 60–92; RESP 11–29; TEMP 97.2–99; O2SAT 98–100
[2017-03-05] MEDS: MESALAMINE HD 800 MG DELAYED RELEASE TAB PO SCH ×3 (01:31→17:39)
[2017-03-05 04:53] LABS: AUTOMATED NEUTROPHIL # 7.5 TH/MM3 (1.8-7.7); BASOPHIL % 0.4 % (0.0-2.0); EOSINOPHIL # 0.4 TH/MM3 (0-0.4); EOSINOPHIL % 3.6 % (0.0-4.0); HEMATOCRIT 24.8 % (39.0-51.0); LYMPH % 9.5 % (9.0-44.0); MEAN CELL VOLUME 61.9 FL (80.0-100.0); MEAN CORPUSCULAR HEMOGLOBIN 18.1 PG (27.0-34.0); MONO % 11.2 % (0.0-8.0); NEUT % 75.3 % (16.0-70.0); PLATELET COUNT 509 TH/MM3 (150-450); RED CELL DISTRIBUTION WIDTH 17.4 % (11.6-17.2)
[2017-03-05 04:55] LABS: HEMO FLAGS AUTO DIFF; MEAN CORPUSCULAR HGB CONC 29.3 % (32.0-36.0)
[2017-03-05 05:08] LABS: BICARBONATE 26.2 MEQ/L (21.0-32.0)
[2017-03-05 05:12] LABS: OVALOCYTES 1+ (NORMAL); PLATELET ESTIMATE SMEAR HIGH (NORMAL); PLATELET MORPHOLOGY NORMAL (NORMAL); SCAN/DIFF AUTO DIFF CONFIRMED
[2017-03-05] MEDS: SODIUM CHLOR 0.9% 1000 ML INJ 1,000 ML IV SCH ×2 (08:00→17:44)
[2017-03-05] MEDS: SODIUM CHLORIDE 0.9% FLUSH 10 ML FLUSH IV FLUSH SCH ×2 (08:01→21:34)
--- NOTE | 2017-03-05 08:50 | HHI.PR ---
Subjective Subjective Notes Resting in bed Completed prep Feels hungry Reports no RLQ pain overnight Objective Vitals/I&O Vital Signs Date Time Temp Pulse Resp B/P (MAP) Pulse Ox O2 Delivery O2 Flow Rate FiO2 03/05/17 08:00 98.8 81 20 106/64 (78) 100 03/04/17 19:40 21 03/04/17 07:08 Room Air Labs Laboratory Tests Test 03/05/17 04:35 White Blood Count 10.0 Red Blood Count 4.00 Hemoglobin 7.3 Hematocrit 24.8 Mean Corpuscular Volume 61.9 Mean Corpuscular Hemoglobin 18.1 Mean Corpuscular Hemoglobin Concent 29.3 Red Cell Distribution Width 17.4 Platelet Count 509 Mean Platelet Volume 6.5 Neutrophils (%) (Auto) 75.3 Lymphocytes (%) (Auto) 9.5 Monocytes (%) (Auto) 11.2 Eosinophils (%) (Auto) 3.6 Basophils (%) (Auto) 0.4 Neutrophils # (Auto) 7.5 Lymphocytes # (Auto) 1.0 Monocytes # (Auto) 1.1 Eosinophils # (Auto) 0.4 Basophils # (Auto) 0.0 CBC Comment AUTO DIFF Differential Comment AUTO DIFF CONFIRMED Platelet Estimate HIGH Platelet Morphology Comment NORMAL Ovalocytes 1+ Blood Urea Nitrogen 4 Creatinine 0.70 Random Glucose 91 Calcium Level 8.0 Sodium Level 140 Potassium Level 4.0 Chloride Level 105 Carbon Dioxide Level 26.2 Anion Gap 9 Estimat Glomerular Filtration Rate 141 Date/Time Source Procedure Growth Status 03/03/17 23:45 Blood Peripheral Aerobic Blood Culture - Preliminary NO GROWTH IN 1 DAY Resulted 03/03/17 23:45 Blood Peripheral Anaerobic Blood Culture - Preliminary NO GROWTH IN 1 DAY Resulted Cardiovascular: Regular Lungs: Clear Abdomen: Non-distended, Other (Left sided abdominap pain with palpation; no RLQ pain with palpation ) Extremities: No edema A/P Assessment and Plan 21 year old male with abdominal pain; rule out appendicitis -NPO for colonoscopy today -No RLQ pain -Agree with continued workup by GI -Diet per GI after colonoscopy -No surgical plans at this time Attending Statement patient seen at bedside examined as above no RLQ pain await colonoscopy unlikely acute appendicitis Attestation The exam, history, and the medical decision-making described in the above note were completed with the assistance of the mid-level provider. I reviewed and agree with the findings presented. I attest that I had a [id number] encounter with the patient on the same day, and personally performed and documented my assessment and findings in the medical record. Saritha Chavez Mar 05, 2017 08:50 Edgar Dunn MD Mar 13, 2017 14:14
[2017-03-05] MEDS ORDERED: METOPROLOL TARTRATE 25 MG TAB PO PRN (11:45)
[2017-03-05] MEDS ORDERED: CHLORHEXIDINE GLUCONATE 2 % 1 PACK (2 CLOTHS) TOPICAL PRN (11:45)
[2017-03-05] MEDS ORDERED: LACTATED RINGER'S 1000 ML IV PRN (11:45)
[2017-03-05] MEDS ORDERED: POVIDONE IODINE 5% (ANTISEPSIS KIT) 4 APPLICATIONS EACH NARE PRN (11:45)
[2017-03-05] MEDS ORDERED: INSULIN HUMAN REGULAR 1,000 UNITS/10 ML VIAL SQ PRN (11:45)
[2017-03-05] MEDS ORDERED: SODIUM CHLORID 0.9% 500 ML IV PRN (11:45)
--- NOTE | 2017-03-05 11:48 | GIPROC ---
[facility] [address] [place] [address], [id number] COLONOSCOPY PROCEDURE REPORT EXAM DATE: 03/05/2017 PATIENT NAME: Ricardo Hoover MR #: [id number] BIRTHDATE: 1995 ENDOSCOPIST: Freddie Riley MD ORDER #: [id number] GROUP INSURANCE SPECIAL AGENT: Tracy Henderson and [place] STATUS: inpatient INDICATIONS: The patient is a 21 yr old male here for a colonoscopy due to rectal bleeding, history of Crohn disease PROCEDURE PERFORMED: Colonoscopy with biopsy MEDICATIONS: None and Per Anesthesia. PREP QUALITY: fair ESTIMATED BLOOD LOSS: None CONSENT: The patient understands the risks and benefits of the procedure and understands that these risks include, but are not limited to: sedation, allergic reaction, infection, perforation and/or bleeding. Alternative means of evaluation and treatment include, among others: physical exam, x-rays, and/or surgical intervention. The patient elects to proceed with this endoscopic procedure. medical equipment was checked for proper function. Hand hygiene and appropriate measures for infection prevention was taken. After the risks, benefits and alternatives of the procedure were thoroughly explained, Informed consent was verified, confirmed and timeout was successfully executed by the treatment team. A digital exam revealed no abnormalities of the rectum and Some blood The Pentax [id number] endoscope was introduced through the anus and advanced to the cecum, which was identified by both the appendix and ileocecal valve. The instrument was then slowly withdrawn as the colon was fully examined. COLON FINDINGS: Terminal ileum is normal. Severe ulcerations deep with friable mucosa throughout the colon with significant amount of bleeding from the mucosa biopsies were done from the cecum and sigmoid Nodule in the rectum biopsy was done. Retroflexed views revealed no abnormalities The scope was then completely withdrawn from the patient and the procedure terminated. ADVERSE EVENTS: There were no complications. IMPRESSIONS: 1. Terminal ileum is normal 2. Severe ulcerations deep with friable mucosa throughout the colon with significant amount of bleeding from the mucosa biopsies were done from the cecum and sigmoid Nodule in the rectum biopsy was done 3. Retroflexed views revealed no abnormalities 4. Revealed no abnormalities of the rectum 5. Some blood 6. Severe active colitis not clear if this is Crohn colitis or ulcerative colitis we will need to obtain old records and wait for the biopsy RECOMMENDATIONS: We will start Solu-Medrol 40 mg 3 times a day we will taper fast Continue Asacol Patient will need possible biologic treatment Follow-up as an outpatient in 1 week Repeat colonoscopy most likely in few weeks RECALL: Return 2 months Colonoscopy Freddie Riley MD eSigned: Freddie Riley MD 03/05/2017 11:47 AM cc: PATIENT NAME: Ricardo Hoover MR#: [id number]
[2017-03-05] MEDS ORDERED: DO NOT ADM ANY ANTICOAGULANT DRUGS PRN (12:00)
[2017-03-05] MEDS ORDERED: PROPOFOL 200 MG/20 ML AMP IV ONE (12:23)
[2017-03-05] MEDS ORDERED: SODIUM CHLOR 0.9% 250 ML INJ 250 ML IV ONE (12:45)
--- NOTE | 2017-03-05 12:48 | HHI.PR ---
Subjective Remarks Patient seen and evaluated in follow-up for colitis which appears to be Crohn's on endoscopy today. Hemoglobin quite low after hydration patient has evidence of severe iron deficiency. Patient will need transfusion and IV iron which I did discuss with the patient. 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 Objective Vitals Vital Signs Date Time Temp Pulse Resp B/P (MAP) Pulse Ox O2 Delivery O2 Flow Rate FiO2 03/05/17 11:51 98.7 80 16 103/49 (67) 100 03/05/17 10:59 98.8 81 20 106/64 (78) 100 03/05/17 08:00 98.8 81 20 106/64 (78) 100 03/05/17 06:30 62 15 03/05/17 06:15 62 14 03/05/17 06:00 62 03/05/17 06:00 62 16 03/05/17 05:45 66 14 03/05/17 05:30 80 18 03/05/17 05:15 70 17 03/05/17 05:00 70 15 03/05/17 04:45 64 14 03/05/17 04:30 60 16 03/05/17 04:17 74 22 109/57 (74) 03/05/17 04:15 68 17 03/05/17 04:00 60 15 03/05/17 04:00 60 03/05/17 04:00 98.4 100 03/05/17 03:45 60 15 03/05/17 03:30 60 16 03/05/17 03:15 64 15 03/05/17 03:00 64 16 03/05/17 02:45 68 17 03/05/17 02:30 62 17 03/05/17 02:15 60 17 03/05/17 02:00 60 03/05/17 02:00 60 16 03/05/17 01:45 92 29 03/05/17 01:30 76 12 03/05/17 01:00 68 19 03/05/17 00:30 78 25 03/05/17 00:00 70 03/05/17 00:00 98.2 70 17 100 03/04/17 23:30 66 16 03/04/17 23:00 66 20 03/04/17 22:41 72 22 115/64 (81) 03/04/17 22:30 76 17 03/04/17 22:00 84 21 03/04/17 22:00 84 03/04/17 21:30 74 19 03/04/17 21:00 78 19 03/04/17 20:30 80 19 03/04/17 20:03 98 24 119/49 (72) 03/04/17 20:00 80 17 03/04/17 20:00 80 03/04/17 20:00 98.2 100 03/04/17 19:40 100 21 03/04/17 19:30 80 11 03/04/17 19:00 80 22 03/04/17 16:00 88 19 100 03/04/17 14:34 99.0 88 16 102/54 (70) 100 03/04/17 14:00 78 19 100 I/O 03/04/17 03/04/17 03/04/17 03/05/17 03/05/17 03/05/17 06:59 14:59 22:59 06:59 14:59 22:59 Intake Total 3050 ml 2500 ml 60 ml Balance 3050 ml 2500 ml 60 ml Intake Oral 2500 ml 60 ml IV Total 3050 ml # Voids 1 7 3 # Bowel Movements 1 8 4 Result Diagram: 03/05/17 0435 03/05/17 0435 Imaging Last Impressions Abdomen/Pelvis CT 03/04/17 2320 Signed Impressions: Service Date/Time: February 00:26 - CONCLUSION: 1. Severe colitis of the left colon associated with extensive inflammatory changes and probable partial obstruction with constipation in the transverse colon and right colon. 2. Mildly distended appendix without significant inflammatory change. Cannot exclude an early appendicitis. Don Rose MD Objective Remarks GENERAL: This is a pale thin male CARDIOVASCULAR: Regular rate and rhythm without murmurs, gallops, or rubs. RESPIRATORY: Clear to auscultation. Breath sounds equal bilaterally. No wheezes , rales, or rhonchi. GASTROINTESTINAL: Abdomen soft, non-tender, nondistended. Normal active bowel sounds MUSCULOSKELETAL: Extremities without clubbing, cyanosis, or edema. NEURO: Alert & Oriented x4 to person, place, time, situation. Moves all ext x4 A/P Problem List: (1) Inflammatory bowel disease ICD Code: K52.9 - Noninfective gastroenteritis and colitis, unspecified Plan: Non-adherent patient with sepsis (hr, fever, source) Wt loss, pain, bloody stools Empiric ABX +BM in hospital, severe inflammation in imaging with rather benign abdominal exam Pain control, status post endoscopy, Crohn's by endoscopy; will continue with IV Solu-Medrol reinforce treatment plans with patient IV morphine prn (2) Anemia ICD Code: D64.9 - Anemia, unspecified Status: Acute Plan: Patient with severe iron deficiency which required blood transfusion as well as IV iron. Discussed with patient Rita Figueroa MD Mar 05, 2017 12:48
[2017-03-05] MEDS: methylPREDNISolone SOD SUCC 40 MG/1 ML VIAL IV PUSH SCH ×2 (13:39→17:41)
[2017-03-05] MEDS: MULTIVITAMIN TAB PO SCH (13:39)
[2017-03-05] MEDS: IRON SUCROSE INJ 100 MG in SODIUM CHLORIDE 0.9% INJ 100 ML IV SCH (14:07)
--- NOTE | 2017-03-05 21:06 | MB ---
cc: AIRAM MANTILLA DATE OF CONSULTATION 03/05/[address] Rita Figueroa REASON FOR REFERRAL History of colitis, abdominal pain, rectal bleeding. Thank you for the consultation. HISTORY OF PRESENT ILLNESS A 21-year-old male with history of inflammatory bowel disease. The patient does not know if it is ulcerative colitis versus Crohn colitis. This was diagnosed 9 years ago. Apparently, the patient is noncompliant with medications. He used to be on Remicade, Asacol and other medications that he did not know what type. Apparently, last colonoscopy was about 1-2 years ago, he does not remember and he did not take medication for many months and did not see a textile stylist. Recently he started having abdominal pain which is worse with eating, diffuse and worse with going to the bathroom and with rectal bleeding. He denied nausea, vomiting but his pain became worse with more bleeding with diarrhea so he decided to come to the hospital. He denied fever, chills. No other problem at this time. REVIEW OF SYSTEMS All 12-point negative except HPI. ALLERGIES NO KNOWN DRUG ALLERGIES. FAMILY HISTORY Negative. SOCIAL HISTORY No tobacco or drug or alcohol. SURGERIES Abscess drainage in the rectum. Inflammatory bowel disease unsure what type for 9 years at least. PHYSICAL EXAMINATION GENERAL: Alert, oriented, no acute distress. The patient had low grade fever when he was admitted VITAL SIGNS: Stable. HEENT: Pupils are reactive to light. NECK: Supple. CHEST: Clear to auscultation, percussion. CARDIAC: Regular rate and rhythm. ABDOMEN: Soft, moderate diffuse tenderness. No distension. Positive bowel sounds. No guarding. No hepatosplenomegaly. EXTREMITIES: No edema, clubbing or cyanosis. NEUROLOGICALLY: Alert, oriented, intact. No focal abnormalities. Psychologically appropriate. LABORATORY DATA Hemoglobin yesterday was 10.6, today 7.3, platelet 509, INR 1.1. Chemistry was unremarkable including liver function tests. IMAGING STUDIES CT scan showed severe colitis in the left colon associated with extensive inflammatory changes, possible partial obstruction with constipation in the transverse colon and right colon. Mildly distended appendix. No significant inflammatory changes. ASSESSMENT/PLAN 1. A 21-year-old gentleman with inflammatory bowel disease, unclear if it is ulcerative colitis or Crohn disease. 2. The patient was started on Asacol. 3. Pain medication. 4. Will start to do colonoscopy today. 5. The patient will need 1 unit of packed RBC. 6. We might need to add prednisone or steroid after doing the colonoscopy. 7. The patient will need to have a regular long-term treatment with follow up with gastroenterology, not sure if the patient will be compliant but we will try that. The patient understands the plan and will proceed with that. MD ASHISH Cesar/MARIANELA /4:52 PM /8:51 PM
[2017-03-06] VITALS (7 sets, daily range): BP systolic 101–121; BP diastolic 66–71; PULSE 51–74; RESP 16–20; TEMP 95.7–98; O2SAT 94–100
[2017-03-06] MEDS: MESALAMINE HD 800 MG DELAYED RELEASE TAB PO SCH ×3 (01:00→16:46)
[2017-03-06] MEDS: SODIUM CHLOR 0.9% 1000 ML INJ 1,000 ML IV SCH (03:37)
[2017-03-06] MEDS: methylPREDNISolone SOD SUCC 40 MG/1 ML VIAL IV PUSH SCH ×4 (05:43→16:46)
[2017-03-06 07:47] LABS: AUTOMATED NEUTROPHIL # 6.3 TH/MM3 (1.8-7.7); BASOPHIL % 0.5 % (0.0-2.0); HEMATOCRIT 30.6 % (39.0-51.0); LYMPH % 5.3 % (9.0-44.0); LYMPHOCYTE # 0.4 TH/MM3 (1.0-4.8); MEAN CELL VOLUME 64.3 FL (80.0-100.0); MEAN CORPUSCULAR HEMOGLOBIN 19.5 PG (27.0-34.0); MEAN CORPUSCULAR HGB CONC 30.4 % (32.0-36.0); MONO % 0.5 % (0.0-8.0); NEUT % 93.7 % (16.0-70.0); PLATELET COUNT 566 TH/MM3 (150-450); RED BLOOD COUNT 4.75 MIL/MM3 (4.50-5.90); WHITE BLOOD COUNT 6.7 TH/MM3 (4.0-11.0)
[2017-03-06 07:50] LABS: HEMO FLAGS AUTO DIFF
[2017-03-06 08:11] LABS: OVALOCYTES 1+ (NORMAL); PLATELET ESTIMATE SMEAR HIGH (NORMAL); PLATELET MORPHOLOGY NORMAL (NORMAL); ROULEAUX PRESENT (NORMAL); SCAN/DIFF AUTO DIFF CONFIRMED
[2017-03-06] MEDS: MULTIVITAMIN TAB PO SCH (08:55)
[2017-03-06] MEDS: IRON SUCROSE INJ 100 MG in SODIUM CHLORIDE 0.9% INJ 100 ML IV SCH (08:55)
[2017-03-06] MEDS: SODIUM CHLORIDE 0.9% FLUSH 10 ML FLUSH IV FLUSH SCH ×2 (08:55→21:00)
--- NOTE | 2017-03-06 09:31 | HHI.PR ---
Subjective Remarks Patient seen and evaluated today in follow-up for Crohn's exacerbation. Patient pain is improved. He would like to try eating more. Tolerating steroids well otherwise versus some concern for sweating at night associated with steroids. It's tolerable. Patient status post blood transfusion and iron infusion without difficulty. Hemoglobin improved Objective Vitals Vital Signs Date Time Temp Pulse Resp B/P (MAP) Pulse Ox O2 Delivery O2 Flow Rate FiO2 03/06/17 08:00 98.0 63 18 117/70 (86) 94 03/06/17 04:31 96.6 51 20 110/71 (84) 100 03/06/17 00:06 97.3 62 16 101/71 (81) 100 03/05/17 23:00 97.2 74 16 109/67 (81) 100 03/05/17 21:05 100 21 03/05/17 21:00 98.6 72 20 111/62 98 03/05/17 20:00 98.5 75 19 108/66 (80) 98 03/05/17 18:10 98.3 75 22 115/65 98 03/05/17 17:55 99.0 86 17 123/68 99 03/05/17 16:00 98.7 81 14 119/66 (83) 100 03/05/17 13:50 86 11 100 03/05/17 13:45 98.5 84 18 119/61 (80) 100 03/05/17 11:51 98.7 80 16 103/49 (67) 100 03/05/17 10:59 98.8 81 20 106/64 (78) 100 I/O 03/05/17 03/05/17 03/05/17 03/06/17 03/06/17 03/06/17 07:00 15:00 23:00 07:00 15:00 23:00 Intake Total 60 ml 470 ml 250 ml Balance 60 ml 470 ml 250 ml Intake Oral 60 ml 120 ml IV Total 250 ml Packed Cells 250 ml Blood Product IV Normal Saline Flush 100 ml # Voids 3 4 2 # Bowel Movements 4 4 Result Diagram: 03/06/17 0635 03/05/17 0435 Objective Remarks GENERAL: This is a pale thin male CARDIOVASCULAR: Regular rate and rhythm without murmurs, gallops, or rubs. RESPIRATORY: Clear to auscultation. Breath sounds equal bilaterally. No wheezes , rales, or rhonchi. GASTROINTESTINAL: Abdomen soft, non-tender, nondistended. Normal active bowel sounds MUSCULOSKELETAL: Extremities without clubbing, cyanosis, or edema. NEURO: Alert & Oriented x4 to person, place, time, situation. Moves all ext x4 A/P Problem List: (1) Inflammatory bowel disease ICD Code: K52.9 - Noninfective gastroenteritis and colitis, unspecified Plan: Non-adherent patient with improvement of sepsis secondary to acute colitis Wt loss, pain, bloody stools Empiric ABX continue with IV Solu-Medrol, Asacol, advance diet reinforce treatment plans with patient IV morphine prn (2) Anemia ICD Code: D64.9 - Anemia, unspecified Status: Acute Plan: Patient with severe iron deficiency s/p blood transfusion as well as IV iron 2/3. Discussed with patient Discharge Planning home 1-2 days pending progress Rita Figueroa MD Mar 06, 2017 09:31
[2017-03-07] MEDS: methylPREDNISolone SOD SUCC 40 MG/1 ML VIAL IV PUSH SCH ×2 (00:22→05:40)
[2017-03-07] MEDS: MESALAMINE HD 800 MG DELAYED RELEASE TAB PO SCH ×2 (00:22→09:34)
[2017-03-07 00:57] VITALS: BP 108/57; PULSE 68; RESP 18; TEMP 95.6; O2SAT 99
[2017-03-07 08:00] VITALS: BP 117/74; PULSE 54; RESP 16; TEMP 97; O2SAT 100
[2017-03-07] MEDS: IRON SUCROSE INJ 100 MG in SODIUM CHLORIDE 0.9% INJ 100 ML IV SCH (09:33)
[2017-03-07] MEDS: SODIUM CHLORIDE 0.9% FLUSH 10 ML FLUSH IV FLUSH SCH (09:34)
[2017-03-07] MEDS: MULTIVITAMIN TAB PO SCH (09:34)
[2017-03-07] MEDS ORDERED: MESA1TAB2 PO (11:09)
[2017-03-07] MEDS ORDERED: THERTAB15 PO (11:09)
[2017-03-07] MEDS ORDERED: PRED10PA PO (11:09)
[2017-03-07] MEDS ORDERED: NU-I150C PO (11:09)
--- NOTE | 2017-03-07 11:10 | HHI.DCPOC ---
Discharge Care Plan Diagnosis: (1) Crohn disease Goals to Promote Your Health * To prevent worsening of your condition and complications * To maintain your health at the optimal level Directions to Meet Your Goals Take your medications as prescribed Follow your dietary instruction Follow activity as directed Keep your appointments as scheduled Take your immunizations and boosters as scheduled If your symptoms worsen call your PCP, if no PCP go to Urgent Care Center or Emergency Room Smoking is Dangerous to Your Health. Avoid second hand smoke Call the 24-hour hour crisis hotline for domestic abuse at Rita Figueroa MD Mar 07, 2017 11:10
--- NOTE | 2017-03-07 11:12 | HHI.DS ---
Discharge Summary Admission Date Mar 04, 2017 at 01:44 Discharge Date: Mar 07, 2017 Admitting Diagnosis acute colitis; partial SBO; r/o early appendicitis (1) Inflammatory bowel disease ICD Code: K52.9 - Noninfective gastroenteritis and colitis, unspecified (2) Anemia ICD Code: D64.9 - Anemia, unspecified Status: Acute Procedures Colonoscopy: Crohn's Brief History - From Admission 21 year old male with IBD who has had 3 weeks of abd pain and loose stool. Pain is severe and worse with eating and better with defacation No nausea or vomiting NO fever at home (fever in ER) Pain ia better with IV morphine He has been lost to follow up due to personal nonadherence CBC/BMP: 03/06/17 0635 03/05/17 0435 Significant Findings Laboratory Tests Test 03/05/17 04:35 03/06/17 06:35 Red Blood Count 4.00 MIL/MM3 (4.50-5.90) Hemoglobin 7.3 GM/DL (13.0-17.0) 9.3 GM/DL (13.0-17.0) Hematocrit 24.8 % (39.0-51.0) 30.6 % (39.0-51.0) Mean Corpuscular Volume 61.9 FL (80.0-100.0) 64.3 FL (80.0-100.0) Mean Corpuscular Hemoglobin 18.1 PG (27.0-34.0) 19.5 PG (27.0-34.0) Mean Corpuscular Hemoglobin Concent 29.3 % (32.0-36.0) 30.4 % (32.0-36.0) Red Cell Distribution Width 17.4 % (11.6-17.2) 19.0 % (11.6-17.2) Platelet Count 509 TH/MM3 (150-450) 566 TH/MM3 (150-450) Mean Platelet Volume 6.5 FL (7.0-11.0) Neutrophils (%) (Auto) 75.3 % (16.0-70.0) 93.7 % (16.0-70.0) Monocytes (%) (Auto) 11.2 % (0.0-8.0) Monocytes # (Auto) 1.1 TH/MM3 (0-0.9) Platelet Estimate HIGH (NORMAL) HIGH (NORMAL) Ovalocytes 1+ (NORMAL) 1+ (NORMAL) Blood Urea Nitrogen 4 MG/DL (7-18) Calcium Level 8.0 MG/DL (8.5-10.1) Lymphocytes (%) (Auto) 5.3 % (9.0-44.0) Lymphocytes # (Auto) 0.4 TH/MM3 (1.0-4.8) Rouleau PRESENT (NORMAL) Imaging Last Impressions Abdomen/Pelvis CT 03/04/17 6320 Signed Impressions: Service Date/Time: , March 04, 2017 00:26 - CONCLUSION: 1. Severe colitis of the left colon associated with extensive inflammatory changes and probable partial obstruction with constipation in the transverse colon and right colon. 2. Mildly distended appendix without significant inflammatory change. Cannot exclude an early appendicitis. Don Rose MD PE at Discharge GENERAL: This is a pale thin male CARDIOVASCULAR: Regular rate and rhythm without murmurs, gallops, or rubs. RESPIRATORY: Clear to auscultation. Breath sounds equal bilaterally. No wheezes , rales, or rhonchi. GASTROINTESTINAL: Abdomen soft, non-tender, nondistended. Normal active bowel sounds MUSCULOSKELETAL: Extremities without clubbing, cyanosis, or edema. NEURO: Alert & Oriented x4 to person, place, time, situation. Moves all ext x4 Pt update on day of discharge Patient seen and evaluated today in follow-up for discharge planning. Tolerating well. Would like to advance his diet. Pain is minimal. No new issues Hospital Course This patient is a 21-year-old gentleman with a known history of colitis with nonadherence. Patient did have abdominal pain and weight loss and was pale. He was found to be iron deficient with exacerbation of chronic Crohn's disease. Patient was treated for this with pain management, he required IV iron, patient did have improvement in his symptoms and after he was given steroids and was started on Asacol. Patient was seen in consultation by gastroenterology team Pt Condition on Discharge: Good Discharge Disposition: Discharge Home Discharge Time: > 30 minutes Discharge Instructions DIET: Follow Instructions for: As Tolerated, No Restrictions Activities you can perform: Regular-No Restrictions Follow up Referrals: Gastroenterology - 3 Weeks with Freddie Riley MD New Medications: Polysaccharide Iron Complex (Nu-Iron 150) 150 Mg Iron Cap 150 MG PO DAILY for Nutritional Supplement, #30 CAP 0 Refills Prednisone (21) 10 mg tab Dose Pack (Prednisone (21) 10 mg tab Dose Pack) 10 Mg Pack 10 MG PO DIRECTED for Inflammation, #20 DSPK 0 Refills Take 20 mg twice a day for 3 days then 20 mg daily for 3 days then 10 mg daily for 3 days then stop Mesalamine (Mesalamine DR) 800 Mg Tab 1600 MG PO Q8H for ibd, #93 TAB Multiple Vitamin (Thera/Beta-Carotene) 1 Tab Tab 1 TAB PO DAILY for vitamin for 30 Days, #31 TAB Rita Figueroa MD Mar 07, 2017 11:12
== END 2017-03-07 14:57 | disposition home or self-care (01) | DRG 872 ==
LOC: PHED 20:40 → PHEDA 03-04 01:44 → PHEDH 03-04 05:11 → PHICU 03-04 10:20 → PH3A 03-05 21:39
PROVIDERS: ADMIT Hospitalist; ATTEND Hospitalist
PROC: 0DBN8ZX Excision of Sigmoid Colon, Via Natural or Artificial Opening Endoscopic, Diagnostic (ICD-10-PCS; 2017-03-05)
PROC: 0DBP8ZX Excision of Rectum, Via Natural or Artificial Opening Endoscopic, Diagnostic (ICD-10-PCS; 2017-03-05)
PROC: 30233N1 Transfusion of Nonautologous Red Blood Cells into Peripheral Vein, Percutaneous Approach (ICD-10-PCS; 2017-03-05)
PROC: 0DBH8ZX Excision of Cecum, Via Natural or Artificial Opening Endoscopic, Diagnostic (ICD-10-PCS; principal; 2017-03-05 11:30)
DX: A41.9 Sepsis, unspecified organism (principal); K50.112 Crohn's disease of large intestine with intestinal obstruction; D50.9 Iron deficiency anemia, unspecified; R63.4 Abnormal weight loss; Z68.20 Body mass index [BMI] 20.0-20.9, adult; Z91.14 Patient's other noncompliance with medication regimen
CPT/HCPCS: 36430; 74177; 80048; 80053; 81001; 82607; 82652; 83540; 83550; 83605; 83690; 85025; 85610; 85730; 86850; 86900; 86901; 86920; 87040; 88305; 96361; 96374; 96375; J1756; J2270; J2405; J2543; J2920; J7030; J7050; J7120; P9016; Q9967

== ENCOUNTER 2017-05-13 18:14 | Inpatient (IN) | payer OTHER ==
[~2017-05-13] VITALS: Ht 182.9 cm; Wt 64.2 kg
[2017-05-13] VITALS (7 sets, daily range): BP systolic 100–124; BP diastolic 59–71; PULSE 96–115; RESP 16–20; TEMP 99.3–100; O2SAT 98–100
[~2017-05-13 18:14] MED LIST changes: -IOHEXOL 350 MG/ML 10 ML VIAL (for RAD DIAG) IVCONTRAST ONE; +MESA1TAB2 PO; +NU-I150C PO; +PRED10PA PO; +THERTAB15 PO
--- NOTE | 2017-05-13 19:26 | PD ---
HPI Chief Complaint: Abdominal Pain Time Seen by Provider: 19:26 Travel History International Travel<30 days: No Contact w/Intl Traveler<30days: No Traveled to known affect area: No History of Present Illness HPI 22-year-old male came to the emergency room with history of left-sided abdominal pain. Patient has history of ulcerative colitis and says that this pain has been worsening over past 1 week. He was concerned that his colon may rupture and that's why he came in. He went to see a GI specialist this morning and was given some samples. Pain is getting worse and hence he decided to come to the emergency room. Vital signs are relatively stable. He says that this morning he was dizzy and shower and felt like he was going to pass out. He has history of hematochezia on a daily basis because of his ulcerative colitis. He does not have insurance and hence is not on any medications. Patient says the pain is colicky nature and gets worse night when he goes to bed and subsides by the morning. Patient also says that the pain is worse when he goes to have a bowel movement and it's mostly in the rectal area. [facility] Past Medical History Narrative Medical List of his past medical, surgical, social and family history is reviewed from the nursing note. Autoimmune Disease: No Cancer: No Cardiovascular Problems: No Chest Pain: Yes Cerebrovascular Accident: No Diabetes: No Diminished Hearing: No Gastrointestinal Disorders: Yes ( CHRONS ) Genitourinary: No Hepatitis: No Hiatal Hernia: No Musculoskeletal: No Neurologic: No Psychiatric: No Reproductive: No Respiratory: No Immunizations Current: Yes Migraines: Yes Seizures: No Thyroid Disease: No PNEUMOCCOCAL Vaccine (Year): 2 Past Surgical History Abdominal Surgery: Yes (COLONOSCOPYS) Cardiac Surgery: No Ear Surgery: No Eye Surgery: No Genitourinary Surgery: No Neurologic Surgery: No Thoracic Surgery: No Other Surgery: Yes (COLONOSCOPY 09) Social History Alcohol Use: Yes (occ) Tobacco Use: No Substance Use: No Allergies-Medications (Allergen,Severity, Reaction): Coded Allergies: No Known Allergies (Verified Allergy, Unknown, 05/13/17) Comments No known drug allergies. Reported Meds & Prescriptions Reported Meds & Active Scripts Active Narrative Medication List of his home medications reviewed from the nursing note. Review of Systems Except as stated in HPI: all other systems reviewed are Neg Gastrointestinal: Positive: Abdominal Pain, Hematochezia Physical Exam Narrative GENERAL: Awake, alert, moderate distress SKIN: Focused skin assessment warm/dry. Pale HEAD: Atraumatic. Normocephalic. EYES: Pupils equal and round. No scleral icterus. No injection or drainage. ENT: No nasal bleeding or discharge. Mucous membranes pink and moist. NECK: Trachea midline. No JVD. CARDIOVASCULAR: Regular rate and rhythm. No murmur appreciated. RESPIRATORY: No accessory muscle use. Clear to auscultation. Breath sounds equal bilaterally. GASTROINTESTINAL: Abdomen soft, left lower quadrant tenderness, nondistended. Hepatic and splenic margins not palpable. MUSCULOSKELETAL: No obvious deformities. No clubbing. No cyanosis. No edema. NEUROLOGICAL: Awake and alert. No obvious cranial nerve deficits. Motor grossly within normal limits. Normal speech. PSYCHIATRIC: Appropriate mood and affect; insight and judgment normal. Data Data Last Documented VS Vital Signs Date Time Temp Pulse Resp B/P (MAP) Pulse Ox O2 Delivery O2 Flow Rate FiO2 05/13/17 21:45 98 16 111/67 (82) 98 Room Air 05/13/17 18:43 100.0 Orders Orders Complete Blood Count With Diff (05/13/17 19:35) Comprehensive Metabolic Panel (05/13/17 19:35) Lipase (05/13/17 19:35) Urinalysis - C+S If Indicated (05/13/17 19:35) Ct Abd/Pel W Iv Contrast(Rout) (05/13/17 19:35) Iv Access Insert/Monitor (05/13/17 19:35) Ecg Monitoring (05/13/17 19:35) Oximetry (05/13/17 19:35) Ondansetron Inj (Zofran Inj) (05/13/17 19:45) Sodium Chlor 0.9% 1000 Ml Inj (Ns 1000 M (05/13/17 19:35) Sodium Chloride 0.9% Flush (Ns Flush) (05/13/17 19:45) Ketorolac Inj (Toradol Inj) (05/13/17 19:45) Westergren Sedimentation Rate (05/13/17 19:35) Type And Screen (05/13/17 19:35) Oral Contrast - Adult (05/13/17 19:44) Diatrizoate Liq ( Gastroview Liq) (05/13/17 19:53) Iohexol 350 Inj (Omnipaque 350 Inj) (05/13/17 21:22) Methylprednisolone So Succ Inj (Solumedr (05/13/17 21:45) Consult Gastroenterology (05/13/17 ) Admit Order (Ed Use Only) (05/13/17 21:59) Labs Laboratory Tests Test 05/13/17 20:00 05/13/17 20:36 White Blood Count 14.8 TH/MM3 Red Blood Count 4.98 MIL/MM3 Hemoglobin 10.3 GM/DL Hematocrit 32.2 % Mean Corpuscular Volume 64.6 FL Mean Corpuscular Hemoglobin 20.7 PG Mean Corpuscular Hemoglobin Concent 32.0 % Red Cell Distribution Width 20.9 % Platelet Count 633 TH/MM3 Mean Platelet Volume 6.3 FL Neutrophils (%) (Auto) 83.7 % Lymphocytes (%) (Auto) 6.4 % Monocytes (%) (Auto) 6.9 % Eosinophils (%) (Auto) 0.1 % Basophils (%) (Auto) 2.9 % Neutrophils # (Auto) 12.5 TH/MM3 Lymphocytes # (Auto) 0.9 TH/MM3 Monocytes # (Auto) 1.0 TH/MM3 Eosinophils # (Auto) 0.0 TH/MM3 Basophils # (Auto) 0.4 TH/MM3 CBC Comment AUTO DIFF Differential Comment AUTO DIFF CONFIRMED Platelet Estimate HIGH Platelet Morphology Comment NORMAL Ovalocytes 1+ Erythrocyte Sedimentation Rate 61 mm/hr Blood Urea Nitrogen 8 MG/DL Creatinine 1.00 MG/DL Random Glucose 122 MG/DL Total Protein 8.1 GM/DL Albumin 2.8 GM/DL Calcium Level 8.3 MG/DL Alkaline Phosphatase 74 U/L Aspartate Amino Transf (AST/SGOT) 8 U/L Alanine Aminotransferase (ALT/SGPT) 18 U/L Total Bilirubin 0.6 MG/DL Sodium Level 132 MEQ/L Potassium Level 3.9 MEQ/L Chloride Level 98 MEQ/L Carbon Dioxide Level 27.1 MEQ/L Anion Gap 7 MEQ/L Estimat Glomerular Filtration Rate 93 ML/MIN Lipase 110 U/L Urine Color YELLOW Urine Turbidity CLEAR Urine pH 6.5 Urine Specific [place] 1.020 Urine Protein NEG mg/dL Urine Glucose (UA) NEG mg/dL Urine Ketones NEG mg/dL Urine Occult Blood TRACE Urine Nitrite NEG Urine Bilirubin NEG Urine Leukocyte Esterase NEG Urine RBC 0-3 /hpf Urine WBC 0-2 /hpf Urine Squamous Epithelial Cells 0-5 /hpf Urine Bacteria NONE /hpf Microscopic Urinalysis Comment CULT NOT INDICATED MDM Medical Decision Making Medical Screen Exam Complete: Yes Emergency Medical Condition: Yes Medical Record Reviewed: Yes Differential Diagnosis Colitis, toxic megacolon, ulcerative colitis, diverticulitis Narrative Course 7:51 PM awaiting for the blood test results. Awaiting for the CT scan to be done and resulted. Patient has been medicated for pain and IV fluid bolus. 9:[address] scan results came back which shows new inflammatory changes in the jejunum and the appendix. Radiologist has expressed is concerned regarding Crohn's disease. Blood test result is suggestive of a leukocytosis and thrombocytosis with elevated sedimentation rate. I discussed the case with Dr. Govea from GI. I've given the patient IV Solu-Medrol bolus. So far he is okay with the management and agreed with admission. Awaiting for the hospitalist to call back. Procedures EKG Prior to Arrival: No Physician Communication Physician Communication Dr. Govea Diagnosis Primary Impression: Crohn's disease of appendix Additional Impression: Abdominal pain Qualified Codes: R10.32 - Left lower quadrant pain Admitting Information Admitting Physician Requests: Admit Scripts Prednisone (Prednisone) 10 Mg Tab 10 MG PO DIRECTED for Crohn's disease, #147 TAB 0 Refills 4 tablets daily for 2 weeks, then 3 tablets daily for 2 weeks, then 2 tablets daily for 2 weeks, then 1 tablet daily for 2 weeks, then 1/2 tablet daily for 2 weeks Prov: Marcial Gonzalez 05/16/17 Dorian ALEX (Dorian ALEX) 800 Mg Tab 1600 MG PO Q8H for ibd for 30 Days, #180 TAB Prov: Marcial Gonzalez 05/16/17 Michelle Lima MD May 13, 2017 19:26
[2017-05-13] MEDS ORDERED: SODIUM CHLOR 0.9% 1000 ML INJ 1,000 ML IV SCH (19:35)
[2017-05-13] MEDS ORDERED: ONDANSETRON HCL 4 MG/2 ML VIAL IVP ONE (19:45)
[2017-05-13] MEDS ORDERED: SODIUM CHLORIDE 0.9% FLUSH 10 ML FLUSH IV FLUSH PRN ×2 (19:45→22:00)
[2017-05-13] MEDS ORDERED: KETOROLAC TROMETHAMINE 30 MG/ML (IVP) VIAL IVP ONE (19:45)
[2017-05-13] MEDS ORDERED: DIATRIZOATE MEGLUM/DIATRIZOATE SOD 9 ML CUP ONE (19:53)
[2017-05-13 20:15] LABS: AUTOMATED NEUTROPHIL # 12.5 TH/MM3 (1.8-7.7); BASOPHIL # 0.4 TH/MM3 (0-0.2); BASOPHIL % 2.9 % (0.0-2.0); EOSINOPHIL % 0.1 % (0.0-4.0); HEMATOCRIT 32.2 % (39.0-51.0); LYMPH % 6.4 % (9.0-44.0); LYMPHOCYTE # 0.9 TH/MM3 (1.0-4.8); MEAN CELL VOLUME 64.6 FL (80.0-100.0); MEAN CORPUSCULAR HEMOGLOBIN 20.7 PG (27.0-34.0); MONO % 6.9 % (0.0-8.0); NEUT % 83.7 % (16.0-70.0); PLATELET COUNT 633 TH/MM3 (150-450); RED BLOOD COUNT 4.98 MIL/MM3 (4.50-5.90); RED CELL DISTRIBUTION WIDTH 20.9 % (11.6-17.2); WHITE BLOOD COUNT 14.8 TH/MM3 (4.0-11.0)
[2017-05-13 20:31] LABS: CHLORIDE 98 MEQ/L (98-107); HEMO FLAGS AUTO DIFF; POTASSIUM 3.9 MEQ/L (3.5-5.1); SODIUM (NA) 132 MEQ/L (136-145)
[2017-05-13 20:35] LABS: ANION GAP 7 MEQ/L (5-15); BICARBONATE 27.1 MEQ/L (21.0-32.0); BLOOD UREA NITROGEN 8 MG/DL (7-18)
[2017-05-13 20:38] LABS: ALT (GPT) 18 U/L (12-78); AST (GOT) 8 U/L (15-37); GLOMERULAR FILTRATION RATE 93 ML/MIN (>89)
[2017-05-13 20:39] LABS: TOTAL BILIRUBIN ADULT 0.6 MG/DL (0.2-1.0)
[2017-05-13 20:41] LABS: ALKALINE PHOSPHATASE 74 U/L (45-117)
[2017-05-13 20:44] LABS: BLOOD, URINE TRACE (NEG); GLUCOSE,URINE NEG (NEG); KETONE, URINE NEG (NEG); NITRITE,URINE NEG (NEG); PH, URINE 6.5 (5.0-8.5)
[2017-05-13 20:50] LABS: OVALOCYTES 1+ (NORMAL)
[2017-05-13 20:51] LABS: PLATELET ESTIMATE SMEAR HIGH (NORMAL); PLATELET MORPHOLOGY NORMAL (NORMAL); SCAN/DIFF AUTO DIFF CONFIRMED
[2017-05-13 20:54] LABS: COMMENT (UR) CULT NOT INDICATED; CULTURE IF INDICATED CULT NOT INDICATED; RBC, URINE 0-3 /hpf (0-3); SQUAMOUS EPITHELIAL CELL URINE 0-5 /hpf (0-5); URINE COLOR YELLOW (YELLW/STRAW); WBC, URINE 0-2 /hpf (0-5)
[2017-05-13] MEDS ORDERED: IOHEXOL 350 MG/ML 10 ML VIAL (for RAD DIAG) IVCONTRAST ONE (21:22)
--- NOTE | 2017-05-13 21:34 | RADRPT ---
EXAM DATE/TIME: 05/13/2017 21:09 [facility] COMPARISON: CT ABDOMEN & PELVIS W CONTRAST, March 04, 2017, 0:26. INDICATIONS : Left sided abdominal pain x2 weeks. IV CONTRAST: 95 cc Omnipaque 350 (iohexol) IV ORAL CONTRAST: Prescribed oral contrast ingested. RADIATION DOSE: 5.22 CTDIvol (mGy) MEDICAL HISTORY : Ulcerative colitis. Crohns disease. SURGICAL HISTORY : None. ENCOUNTER: Initial ACUITY: 2 weeks PAIN SCALE: 4/10 LOCATION: Left abdomen TECHNIQUE: Volumetric scanning of the abdomen and pelvis was performed. Using automated exposure control and ad justment of the mA and/or kV according to patient size, radiation dose was kept as low as reasonably achievable to obtain optimal diagnostic quality images. DICOM format image data is available electro nically for review and comparison. FINDINGS: LOWER LUNGS: The visualized lower lungs are clear. LIVER: Homogeneous density without lesion. There is no dilation of the biliary tree. No calcified gallston es. SPLEEN: Normal size without lesion. PANCREAS: Within normal limits. KIDNEYS: Normal in size and shape. There is no mass, stone or hydronephrosis. ADRENAL GLANDS: Within normal limits. VASCULAR: There is no aortic aneurysm. BOWEL/MESENTERY: There is an acute inflammatory process involving the descending colon. This appearance is similar to the appearance on the prior examination. There is now an inflammatory process seen involving a couple of loops of proximal jejunum. This is a new finding. There is thickening of the wall of the proximal jejunal loops with significant stranding of the mesenteric fat that is adjacent to this. An inflamma tory process is seen involving the appendix which has progressed from the prior study. No appendicoli th. A small amount of free fluid is seen within the pelvis. The proximal colon is mildly distended se condary to the inflammatory process involving the descending colon. There is no free air observed. No abscess. ABDOMINAL WALL: Within normal limits. RETROPERITONEUM: There is no lymphadenopathy. BLADDER: No wall thickening or mass. REPRODUCTIVE: Within normal limits. INGUINAL: There is no lymphadenopathy or hernia. MUSCULOSKELETAL: Within normal limits for patient age. CONCLUSION: 1. New inflammatory process involving a couple of loops of proximal jejunum with progression in the i nflammatory process involving the appendix and stable inflammatory process involving the descending c olon. This constellation of findings would suggest Crohn's disease. No abscess or perforation. Rico Howell Jr., MD on May 13, 2017 at 21:27 Board Certified Radiologist. This report was verified electronically.
[2017-05-13] MEDS ORDERED: methylPREDNISolone SOD SUCC 125 MG/2 ML VIAL IV PUSH ONE (21:45)
[2017-05-13] MEDS ORDERED: MAGNESIUM HYDROXIDE SUSP 30 ML CUP PO PRN (22:00)
[2017-05-13] MEDS ORDERED: ONDANSETRON HCL 4 MG/2 ML VIAL IVP PRN (22:00)
[2017-05-13] MEDS ORDERED: BISACODYL 10 MG SUPP RECTAL PRN (22:00)
[2017-05-13] MEDS ORDERED: SENNOSIDES 8.6 MG TAB PO PRN (22:00)
[2017-05-13] MEDS ORDERED: MORPHINE SULFATE 4 MG/ML INJ IV PUSH PRN (22:00)
[2017-05-13] MEDS ORDERED: ACETAMINOPHEN 325 MG TAB PO PRN (22:00)
[2017-05-13] MEDS ORDERED: ACETAMINOPHEN/HYDROcodone 325 MG/5 MG TAB PO PRN (22:00)
[2017-05-13] MEDS ORDERED: LACTULOSE SYRUP 20 GM/30 ML CUP PO PRN (22:00)
[2017-05-13] MEDS: SODIUM CHLOR 0.9% 1000 ML INJ 1,000 ML IV SCH (22:39)
[2017-05-13] MEDS: PIPERACIL-TAZO 4.5 GM PREMIX 100 ML IV SCH (22:39)
[2017-05-14] MEDS: PIPERACIL-TAZO 4.5 GM PREMIX 100 ML IV SCH ×4 (04:02→21:06)
[2017-05-14 08:00] VITALS: BP 110/73; PULSE 62; RESP 17; TEMP 98; O2SAT 100
[2017-05-14 08:06] LABS: AUTOMATED NEUTROPHIL # 10.3 TH/MM3 (1.8-7.7); BASOPHIL % 0.2 % (0.0-2.0); HEMATOCRIT 32.3 % (39.0-51.0); LYMPH % 4.8 % (9.0-44.0); LYMPHOCYTE # 0.5 TH/MM3 (1.0-4.8); MEAN CELL VOLUME 66.2 FL (80.0-100.0); MEAN CORPUSCULAR HEMOGLOBIN 20.5 PG (27.0-34.0); PLATELET COUNT 531 TH/MM3 (150-450); RED BLOOD COUNT 4.89 MIL/MM3 (4.50-5.90); RED CELL DISTRIBUTION WIDTH 21.1 % (11.6-17.2); WHITE BLOOD COUNT 10.9 TH/MM3 (4.0-11.0)
[2017-05-14 08:09] LABS: HEMO FLAGS AUTO DIFF
[2017-05-14 08:13] LABS: CHLORIDE 101 MEQ/L (98-107); POTASSIUM 3.8 MEQ/L (3.5-5.1); SODIUM (NA) 136 MEQ/L (136-145)
[2017-05-14 08:23] LABS: ANION GAP 8 MEQ/L (5-15); BICARBONATE 27.4 MEQ/L (21.0-32.0)
[2017-05-14 08:24] LABS: BLOOD UREA NITROGEN 10 MG/DL (7-18)
[2017-05-14 08:25] LABS: AST (GOT) 7 U/L (15-37)
[2017-05-14 08:27] LABS: ALT (GPT) 15 U/L (12-78); GLOMERULAR FILTRATION RATE 110 ML/MIN (>89); TOTAL BILIRUBIN ADULT 0.6 MG/DL (0.2-1.0)
[2017-05-14 08:28] LABS: ALKALINE PHOSPHATASE 74 U/L (45-117)
[2017-05-14] MEDS: DOCUSATE SODIUM 50 MG/SENNA 8.6 MG TAB PO SCH ×2 (09:00→21:00)
[2017-05-14] MEDS: methylPREDNISolone SOD SUCC 40 MG/1 ML VIAL IV PUSH SCH ×2 (09:21→21:06)
[2017-05-14] MEDS: SODIUM CHLOR 0.9% 1000 ML INJ 1,000 ML IV SCH (09:24)
[2017-05-14 10:22] LABS: OVALOCYTES 1+ (NORMAL); PLATELET ESTIMATE SMEAR HIGH (NORMAL); PLATELET MORPHOLOGY NORMAL (NORMAL); ROULEAUX PRESENT (NORMAL); SCAN/DIFF AUTO DIFF CONFIRMED
[2017-05-14] MEDS: SODIUM CHLORIDE 0.9% FLUSH 10 ML FLUSH IV FLUSH SCH ×2 (15:42→21:06)
[2017-05-14 16:00] VITALS: BP 111/60; PULSE 66; RESP 17; TEMP 97.9; O2SAT 96
--- NOTE | 2017-05-14 16:15 | HHI.HP ---
[facility] No Primary Care Physician Admission Diagnosis Crohn's disease, abdominal pain Diagnoses: Travel History International Travel<30 Days: No Contact w/Intl Traveler <30 Da: No Traveled to Known Affected Are: No History of Present Illness 22-year-old male with a history of inflammatory bowel disease presents with a three-week history of worsening sharp, colicky left lower quadrant pain sometimes radiating to back. He reports decreased appetite but no nausea or vomiting. He reports very poor sleep due to severe pain. He also reports near syncopal episode yesterday morning feeling as if he was going to pass out in the shower. He denies any chest pain or shortness of breath. Does report occasional hematochezia, however not over the past day. Review of Systems Except as stated in HPI: all other systems reviewed are Neg Past Family Social History Past Medical History Inflammatory bowel disease Past Surgical History Right buttock abscess drainage in the past. No other surgeries Reported Medications Patient says he takes no medications. Allergies: Coded Allergies: No Known Allergies (Verified Allergy, Unknown, 05/13/17) Family History Mother with no medical issues. Father with thyroid disease and heart problems. Social History Nonsmoker. Patient drinks occasionally, most recently several weeks ago. Denies any illicit drugs. Physical Exam Vital Signs Vital Signs Date Time Temp Pulse Resp B/P (MAP) Pulse Ox O2 Delivery O2 Flow Rate FiO2 05/14/17 08:00 98.0 62 17 110/73 (85) 100 05/13/17 23:30 99.3 96 20 106/59 (75) 98 05/13/17 23:06 90 18 100/71 (81) 100 05/13/17 21:45 98 16 111/67 (82) 98 Room Air 05/13/17 21:11 16 05/13/17 20:45 98 16 103/64 (77) 100 Room Air 05/13/17 19:37 100 05/13/17 19:33 16 05/13/17 19:33 112 16 124/71 (88) 100 Room Air 05/13/17 18:43 100.0 115 16 113/64 (80 100 Physical Exam GENERAL: This is a well-nourished, well-developed patient, in no apparent distress. Oriented 3. SKIN: No rashes, ecchymoses or lesions. Cool and dry. HEAD: Atraumatic. Normocephalic. No temporal or scalp tenderness. EYES: Pupils equal round and reactive. Extraocular motions intact. No scleral icterus. No injection or drainage. ENT: Nose without bleeding, purulent drainage or septal hematoma. Throat without erythema, tonsillar hypertrophy or exudate. Uvula midline. Airway patent. NECK: Trachea midline. No JVD or lymphadenopathy. Supple, nontender, no meningeal signs. CARDIOVASCULAR: Regular rate and rhythm without murmurs, gallops, or rubs. RESPIRATORY: Clear to auscultation. Breath sounds equal bilaterally. No wheezes , rales, or rhonchi. GASTROINTESTINAL: Left lower quadrant tenderness. Positive bowel sounds. No rebound or guarding. MUSCULOSKELETAL: Extremities without clubbing, cyanosis, or edema. No joint tenderness, effusion, or edema noted. No calf tenderness. Negative Homans sign bilaterally. NEUROLOGICAL: Awake and alert. Cranial nerves II through XII intact. Motor and sensory grossly within normal limits. Five out of 5 muscle strength in all muscle groups. Normal speech. Laboratory Laboratory Tests Test 05/13/17 20:00 05/13/17 20:36 05/14/17 07:22 White Blood Count 14.8 10.9 Red Blood Count 4.98 4.89 Hemoglobin 10.3 10.0 Hematocrit 32.2 32.3 Mean Corpuscular Volume 64.6 66.2 Mean Corpuscular Hemoglobin 20.7 20.5 Mean Corpuscular Hemoglobin Concent 32.0 31.0 Red Cell Distribution Width 20.9 21.1 Platelet Count 633 531 Mean Platelet Volume 6.3 6.7 Neutrophils (%) (Auto) 83.7 94.0 Lymphocytes (%) (Auto) 6.4 4.8 Monocytes (%) (Auto) 6.9 1.0 Eosinophils (%) (Auto) 0.1 0.0 Basophils (%) (Auto) 2.9 0.2 Neutrophils # (Auto) 12.5 10.3 Lymphocytes # (Auto) 0.9 0.5 Monocytes # (Auto) 1.0 0.1 Eosinophils # (Auto) 0.0 0.0 Basophils # (Auto) 0.4 0.0 CBC Comment AUTO DIFF AUTO DIFF Differential Comment AUTO DIFF CONFIRMED AUTO DIFF CONFIRMED Platelet Estimate HIGH HIGH Platelet Morphology Comment NORMAL NORMAL Ovalocytes 1+ 1+ Erythrocyte Sedimentation Rate 61 Blood Urea Nitrogen 8 10 Creatinine 1.00 0.86 Random Glucose 122 148 Total Protein 8.1 8.3 Albumin 2.8 2.8 Calcium Level 8.3 8.7 Alkaline Phosphatase 74 74 Aspartate Amino Transf (AST/SGOT) 8 7 Alanine Aminotransferase (ALT/SGPT) 18 15 Total Bilirubin 0.6 0.6 Sodium Level 132 136 Potassium Level 3.9 3.8 Chloride Level 98 101 Carbon Dioxide Level 27.1 27.4 Anion Gap 7 8 Estimat Glomerular Filtration Rate 93 110 Lipase 110 Urine Color YELLOW Urine Turbidity CLEAR Urine pH 6.5 Urine Specific [place] 1.020 Urine Protein NEG Urine Glucose (UA) NEG Urine Ketones NEG Urine Occult Blood TRACE Urine Nitrite NEG Urine Bilirubin NEG Urine Leukocyte Esterase NEG Urine RBC 0-3 Urine WBC 0-2 Urine Squamous Epithelial Cells 0-5 Urine Bacteria NONE Microscopic Urinalysis Comment CULT NOT INDICATED [place] PRESENT Result Diagram: 05/14/1772105/14/17721 Imaging Last Impressions Abdomen/Pelvis CT 05/13/171934 Signed Impressions: Service Date/Time: May 21:09 - CONCLUSION: 1. New inflammatory process involving a couple of loops of proximal jejunum with progression in the inflammatory process involving the appendix and stable inflammatory process involving the descending colon. This constellation of findings would suggest Crohn's disease. No abscess or perforation. Rico Howell Jr., MD Caprini VTE Risk Assessment Caprini VTE Risk Assessment: No/Low Risk (score <= 1) Caprini Risk Assessment Model Point Value = 1 Point Value = 2 Point Value = 3 Point Value = 5 Age 41-60 Minor surgery BMI > 25 kg/m2 Swollen legs Varicose veins or History of unexplained or recurrent spontaneous Oral contraceptives or hormone replacement Sepsis (< 1 month) Serious lung disease, including pneumonia (< 1 month) Abnormal pulmonary function Acute myocardial infarction Congestive heart failure (< 1 month) History of inflammatory bowel disease Medical patient at bed rest Age 61-74 Arthroscopic surgery Major open surgery (> 45 min) Laparoscopic surgery (> 45 min) Malignancy Confined to bed (> 72 hours) Immobilizing plaster cast Central venous access Age >= 75 History of VTE Family history of VTE Factor V Leiden Prothrombin [id number] Lupus anticoagulant Anticardiolipin antibodies Elevated serum homocysteine Heparin-induced thrombocytopenia Other congenital or acquired thrombophilia Stroke (< 1 month) Elective arthroplasty Hip, pelvis, or leg fracture Acute spinal cord injury (< 1 month) Prophylaxis Regimen Total Risk Factor Score Risk Level Prophylaxis Regimen 0-1 Low Early ambulation 2 Moderate Order ONE of the following: *Sequential Compression Device (SCD) *Heparin 5000 units SQ BID 3-4 Higher Order ONE of the following medications: *Heparin 5000 units SQ TID *Enoxaparin/Lovenox 40 mg SQ daily (WT < 150 kg, CrCl > 30 mL/min) *Enoxaparin/Lovenox 30 mg SQ daily (WT < 150 kg, CrCl > 10-29 mL/min) *Enoxaparin/Lovenox 30 mg SQ BID (WT < 150 kg, CrCl > 30 mL/min) AND/OR *Sequential Compression Device (SCD) 5 or more Highest Order ONE of the following medications: *Heparin 5000 units SQ TID (Preferred with Epidurals) *Enoxaparin/Lovenox 40 mg SQ daily (WT < 150 kg, CrCl > 30 mL/min) *Enoxaparin/Lovenox 30 mg SQ daily (WT < 150 kg, CrCl > 10-29 mL/min) *Enoxaparin/Lovenox 30 mg SQ BID (WT < 150 kg, CrCl > 30 mL/min) AND *Sequential Compression Device (SCD) Assessment and Plan Assessment and Plan //Suspected Crohn's exacerbation //Small bowel colitis on CT imaging. //Possible Sepsis on admission. -Leukocytosis of 14.8 on admission, tachycardia, small bowel colitis on imaging. No lactate ordered on admission. -Sepsis criteria have resolved at this time. -IDSA recommends avoiding blood cultures in patients with intra-abdominal infections. -Continue broad-spectrum antibiotics, IV steroids. Patient reports symptomatic improvement on IV steroids, antibiotics. Continue to monitor. Gastroenterology consulted. //Hypovolemic Hyponatremia. Sodium 132 on admission. Likely secondary to dehydration. Improved to 136 with IV fluids. Continue IV fluids. //DVT prophylaxis. SCDs. Discussed Condition With Patient, nurse Physician Certification 2 Midnight Certification Type: Admission for Inpatient Services Order for Inpatient Services The services are ordered in accordance with Medicare regulations or non- Medicare payer requirements, as applicable. In the case of services not specified as inpatient-only, they are appropriately provided as inpatient services in accordance with the 2-midnight benchmark. Estimated LOS (days): 2 days is the estimated time the patient will need to remain in the hospital, assuming treatment plan goals are met and no additional complications. Post-Hospital Plan: Not yet determined Nolberto Holley MD May 14, 2017 16:15
[2017-05-14 18:09] LABS: TRANSFERRIN IRON PROFILE 187 MG/DL (200-360)
[2017-05-14 18:12] LABS: FERRITIN 161 NG/ML (26-388)
--- NOTE | 2017-05-14 19:04 | MB ---
cc: LIN GOULD M.D. DATE OF CONSULTATION: 05/14/2017. REASON FOR CONSULTATION: Abdominal pain. Crohn's disease. Diarrhea. DATE OF : 03/17/1945. REFERRING PHYSICIAN: Dr. Holley. HISTORY OF PRESENT ILLNESS: Mr. Hoover is an unfortunate 22-year-old gentleman with history of Crohn's disease diagnosed in 2008, who came to the emergency room with complaints of abdominal pain and worsening diarrhea .He was recently admitted to the hospital with similar symptoms ,at that time he underwent a colonoscopy ,which showed colitis with severe acute inflammation. He was sent home with Prednisone by mouth. Due to lack of insurance, he was unable to be compliant with the medications. As per him, he was treated with Remicade in the past. He stopped Remicade on June 2015, due to insurance issues.He had EGD in the past, as per patient had some duodenal polyps. Unfortunately I do not have the results. He does have some nausea. No vomiting. Some weight loss. There was a concern for a possible ulcerative colitis but recent colonoscopy suggested the presence of Crohn's disease. ALLERGIES: No known allergies. FAMILY HISTORY: No family history of colon cancer or any other GI pathology. PAST SURGICAL HISTORY: He had a right buttock abscess status post drainage. CURRENT MEDICATIONS: Currently he is on: 1. Solu-Medrol. 2. Zosyn. 3. Zofran. 4. Tylenol. 5. [place]. REVIEW OF SYSTEMS: CONSTITUTIONAL: On review of systems he denies any fever or chills, weight loss or weight gain. HEAD, EYES, EARS, NOSE, THROAT: No alteration in baseline hearing or visual acuity. PULMONARY: Denies any chest pain, shortness of breath. GASTROINTESTINAL: As above. GENITOURINARY: Denies dysuria, hematuria. HEMATOLOGIC: Denies any history of anemia or bleeding disorder. SKIN: No alteration in baseline skin lesion. NEUROLOGIC: No history of TIA or CVA kind of symptoms. PHYSICAL EXAMINATION: GENERAL: On clinical exam, he is sitting in bed in no acute distress. He is very frail with pallor. VITAL SIGNS: Temperature 97.9, pulse 66, respirations 17, blood pressure 111/60. HEAD, EYES, EARS, NOSE, THROAT: Pupils equal, round and reactive to light and accommodation. NECK: No jugular venous distention. No lymphadenopathy. CHEST: The lungs are clear to auscultation and palpation. CARDIOVASCULAR: S1-S2 no murmur. ABDOMEN: Abdomen soft and nontender. Bowel sounds are present. MANAGER PRINT: Awake, alert and oriented times three. No focal signs identified. LABORATORY STUDIES: His hemoglobin is 10.3 with an MCV of 64, white count 14.8, and platelet count 633,000. Sedimentation rate is 61. His comprehensive metabolic panel is essentially normal. IMAGING STUDIES: Abdominal CT showed inflammatory process involving a couple of loops of the proximal jejunum with progression of the inflammatory process involving the appendix and stable inflammatory process involving the descending colon. Findings suggestive of Crohn's disease and recurrent disease. The patient had a colonoscopy done back in March of 2017 that was suggestive of severe ulceration involving the cecum and sigmoid. The terminal ileum was noted to be normal. Pathology results as mentioned already. IMPRESSION: 1. Acute exacerbation of Crohn's disease triggered by possible noncompliance to medications secondary to financial reasons. 2. Microcytic anemia most likely secondary to Crohn's disease. 3. Abnormal CT most likely secondary to Crohn's disease. RECOMMENDATIONS: 1. Clear liquid diet. 2. Stool for ova and parasites and C. Difficile. 3. Culture a celiac panel. 4. Consider upper endoscopy for further evaluation of the upper GI tract to rule out celiac disease. 5. Consider CT enterography to further evaluate the small intestine. 6. Continue IV Solu-Medrol. 7. May add Flagyl and Cipro as supportive care. 8. May need case management evaluation for possible application for patient assistance program as the patient will need long-term access to blood work and medications. Thank you again. Will continue to follow the patient along with you. MD SHABBIR RíosB/TELLO /6:05 PM /6:45 PM CHARLEY
[2017-05-14 20:00] VITALS: BP 103/69; PULSE 68; RESP 20; TEMP 96.3; O2SAT 100
[2017-05-15] VITALS: BP 93/61; PULSE 54; RESP 18; TEMP 96.5; O2SAT 100
[2017-05-15] MEDS: SODIUM CHLOR 0.9% 1000 ML INJ 1,000 ML IV SCH ×3 (03:56→16:06)
[2017-05-15] MEDS: PIPERACIL-TAZO 4.5 GM PREMIX 100 ML IV SCH ×4 (04:24→21:12)
[2017-05-15 06:26] LABS: C. DIFF EPI 027 PRESUMPTIVE NEGATIVE (NEGATIVE)
[2017-05-15 07:28] LABS: AUTOMATED NEUTROPHIL # 17.6 TH/MM3 (1.8-7.7); BASOPHIL # 0.1 TH/MM3 (0-0.2); BASOPHIL % 0.3 % (0.0-2.0); LYMPH % 3.5 % (9.0-44.0); LYMPHOCYTE # 0.7 TH/MM3 (1.0-4.8); MEAN CELL VOLUME 66.5 FL (80.0-100.0); MEAN CORPUSCULAR HGB CONC 31.5 % (32.0-36.0); MONO % 1.5 % (0.0-8.0); NEUT % 94.7 % (16.0-70.0); PLATELET COUNT 585 TH/MM3 (150-450); RED BLOOD COUNT 4.52 MIL/MM3 (4.50-5.90); RED CELL DISTRIBUTION WIDTH 21.1 % (11.6-17.2); WHITE BLOOD COUNT 18.7 TH/MM3 (4.0-11.0)
[2017-05-15 07:32] LABS: HEMO FLAGS AUTO DIFF
[2017-05-15 07:43] LABS: POTASSIUM 4.4 MEQ/L (3.5-5.1)
[2017-05-15 07:52] LABS: BICARBONATE 26.7 MEQ/L (21.0-32.0); MAGNESIUM 2.4 MG/DL (1.5-2.5)
[2017-05-15 08:00] VITALS: BP 96/77; PULSE 50; RESP 15; TEMP 96.1; O2SAT 100
[2017-05-15] MEDS: SODIUM CHLORIDE 0.9% FLUSH 10 ML FLUSH IV FLUSH SCH ×2 (08:29→21:12)
[2017-05-15] MEDS: DOCUSATE SODIUM 50 MG/SENNA 8.6 MG TAB PO SCH ×2 (08:30→21:00)
[2017-05-15] MEDS: methylPREDNISolone SOD SUCC 40 MG/1 ML VIAL IV PUSH SCH ×2 (08:30→21:11)
[2017-05-15 09:36] LABS: SCAN/DIFF AUTO DIFF CONFIRMED
--- NOTE | 2017-05-15 11:31 | HHI.PR ---
Subjective Remarks Patient seen and examined today for follow-up on Crohn's disease exacerbation. Patient is lying in bed comfortable. Patient states that he still is having mild discomfort whenever he has a bowel movement. However he has not noticed any more blood. Objective Vitals Vital Signs Date Time Temp Pulse Resp B/P (MAP) Pulse Ox O2 Delivery O2 Flow Rate FiO2 05/15/17 08:00 96.1 50 15 96/77 (83) 100 05/15/17 00:00 96.5 54 18 93/61 (72) 100 05/14/17 20:00 96.3 68 20 103/69 (80) 100 05/14/17 16:00 97.9 66 17 111/60 (77) 96 I/O 05/14/17 05/14/17 05/14/17 05/15/17 05/15/17 05/15/17 07:00 15:00 23:00 07:00 15:00 23:00 Intake Total 200 ml 60 ml 740 ml Balance 200 ml 60 ml 740 ml Intake Oral 60 ml 740 ml IV Total 200 ml # Voids 4 2 # Bowel Movements 4 2 Result Diagram: 05/15/17 0605/15/17 06 Objective Remarks GENERAL: Well-developed, well-nourished, in no acute distress. alert and orientated HEENT: Head is normocephalic without any lesions or masses noted. Facial features are symmetric. Eyes: Extraocular muscles are intact. Conjunctivae were clear. NECK: Supple without any masses. Trachea midline no deviation. No JVD, CARDIAC: Regular rhythm, regular rate. S1/S2 are heard. No murmurs gallops or rubs. LUNGS: Clear to auscultation bilaterally. No wheeze, rhonchi or rales. No use of accessory muscles on inspiration or expiration. ABDOMEN: Soft, nontender. Nondistended. Bowel sounds heard in all 4 quadrants. No organomegaly or masses. Negative rebound, negative guarding EXTREMITIES: No edema, pulses are equal bilaterally. No cyanosis or clubbing NEUROLOGY: Mood and affect appear appropriate. Cranial nerves II through XII grossly intact. Moving all extremities, speech is clear Urinary Catheter: No Vascular Central Line Catheter: No A/P Assessment and Plan Sepsis, resolved Patient met criteria on admission with leukocytosis, tachycardia, colitis by CT Patient continues on Zosyn C. difficile cultures negative Stool studies are pending urinalysis was unremarkable IDSA recommends avoiding blood cultures in patients with intra-abdominal infections. Suspected Crohn's exacerbation, clinically improved Small bowel colitis on CT imaging. Continue Zosyn for antibiotics Continue IV Solu-Medrol GI consulted awaiting further recommendations Recent colonoscopy and biopsy results showed severe colitis which is consistent with inflammatory bowel disease Hypovolemic Hyponatremia. , Resolved Continue IV fluids. DVT prophylaxis. Sequential compression devices Discharge Planning Discharge planning once cleared by Marcial Goodman May 15, 2017 11:31
[2017-05-15 12:00] VITALS: BP 103/71; PULSE 54; RESP 15; TEMP 95.5; O2SAT 100
--- NOTE | 2017-05-15 14:18 | HHI.GIFU ---
Subjective Remarks Doing well and feeling better, tolerating clears well and requesting for more food. Objective Vitals I&O Vital Signs Date Time Temp Pulse Resp B/P (MAP) Pulse Ox O2 Delivery O2 Flow Rate FiO2 05/15/17 12:00 95.5 54 15 103/71 (82) 100 05/15/17 08:00 96.1 50 15 96/77 (83) 100 05/15/17 00:00 96.5 54 18 93/61 (72) 100 05/14/17 20:00 96.3 68 20 103/69 (80) 100 05/14/17 16:00 97.9 66 17 111/60 (77) 96 I/O 05/14/17 05/14/17 05/14/17 05/15/17 05/15/17 05/15/17 07:00 15:00 23:00 07:00 15:00 23:00 Intake Total 200 ml 60 ml 740 ml Balance 200 ml 60 ml 740 ml Intake Oral 60 ml 740 ml IV Total 200 ml # Voids 4 2 # Bowel Movements 4 2 Laboratory Laboratory Tests Test 05/14/17 21:15 05/15/17 06:01 Stool C. difficile Toxin (PCR) NEGATIVE Stl C. difficile Toxin Epiderm 027 PRESUMPTIVE NEGATIVE White Blood Count 18.7 Red Blood Count 4.52 Hemoglobin 9.5 Hematocrit 30.0 Mean Corpuscular Volume 66.5 Mean Corpuscular Hemoglobin 21.0 Mean Corpuscular Hemoglobin Concent 31.5 Red Cell Distribution Width 21.1 Platelet Count 585 Mean Platelet Volume 6.9 Neutrophils (%) (Auto) 94.7 Lymphocytes (%) (Auto) 3.5 Monocytes (%) (Auto) 1.5 Eosinophils (%) (Auto) 0.0 Basophils (%) (Auto) 0.3 Neutrophils # (Auto) 17.6 Lymphocytes # (Auto) 0.7 Monocytes # (Auto) 0.3 Eosinophils # (Auto) 0.0 Basophils # (Auto) 0.1 CBC Comment AUTO DIFF Differential Comment AUTO DIFF CONFIRMED Blood Urea Nitrogen 10 Creatinine 0.69 Random Glucose 129 Albumin 2.5 Calcium Level 8.5 Phosphorus Level 3.3 Magnesium Level 2.4 Sodium Level 139 Potassium Level 4.4 Chloride Level 106 Carbon Dioxide Level 26.7 Anion Gap 6 Estimat Glomerular Filtration Rate 142 Date/Time Source Procedure Growth Status 05/14/17 21:15 Stool Stool Cryptosporidium Exam Pending Received 05/14/17 21:15 Stool Stool Giardia Antigen (ESPERANZA) Pending Received Physical Exam HEENT: Pupils round and reactive to light; normocephalic; atraumatic; no jaundice. Throat is clear. NECK: Neck is supple, no JVD, no lymphadenopathy. CHEST: Chest is clear to auscultation and percussion. CARDIAC: Regular rate and rhythm with no murmur gallop or rubs. ABDOMEN: Soft, nondistended, nontender; no hepatosplenomegaly; bowel sounds are present in all four quadrants. EXTREMITIES: No clubbing, cyanosis, or edema. SKIN: Normal; no rash; no jaundice. LOCATION ANALYST: No focal deficits; alert and oriented times three. Assessment and Plan Physician Comments IMPRESSION: 1. Acute exacerbation of Crohn's disease triggered by possible noncompliance to medications secondary to financial reasons. 2. Microcytic anemia most likely secondary to Crohn's disease. RECOMMENDATIONS: 1. Advance diet to full liquid 2. Check Stool for ova and parasites and C. Difficile. 3. Culture a celiac panel. 4. Consider upper endoscopy for further evaluation of the upper GI tract to rule out celiac disease. 5. Consider CT enterography to further evaluate the small intestine. 6. Continue IV Solu-Medrol. 7. May add Flagyl and Cipro as supportive care. 8. Will follow up with Ravi Mejia MD May 15, 2017 14:18
[2017-05-15 16:00] VITALS: BP 94/66; PULSE 50; RESP 16; TEMP 95.8; O2SAT 100
[2017-05-15 20:00] VITALS: BP 96/59; PULSE 57; RESP 20; TEMP 96.5; O2SAT 100
[2017-05-16] VITALS: BP 97/58; PULSE 50; RESP 20; TEMP 96.7; O2SAT 100
[2017-05-16] MEDS: SODIUM CHLOR 0.9% 1000 ML INJ 1,000 ML IV SCH (03:40)
[2017-05-16] MEDS: PIPERACIL-TAZO 4.5 GM PREMIX 100 ML IV SCH ×2 (03:40→09:29)
[2017-05-16 04:00] VITALS: BP 102/67; PULSE 55; RESP 20; TEMP 96.4; O2SAT 96
[2017-05-16 06:10] LABS: BASOPHIL # 0.1 TH/MM3 (0-0.2); BASOPHIL % 0.7 % (0.0-2.0); EOSINOPHIL % 0.1 % (0.0-4.0); HEMATOCRIT 33.2 % (39.0-51.0); LYMPH % 6.4 % (9.0-44.0); LYMPHOCYTE # 0.9 TH/MM3 (1.0-4.8); MEAN CELL VOLUME 66.7 FL (80.0-100.0); MEAN CORPUSCULAR HGB CONC 31.5 % (32.0-36.0); MONO % 1.9 % (0.0-8.0); NEUT % 90.9 % (16.0-70.0); PLATELET COUNT 640 TH/MM3 (150-450); RED BLOOD COUNT 4.97 MIL/MM3 (4.50-5.90); RED CELL DISTRIBUTION WIDTH 21.3 % (11.6-17.2); WHITE BLOOD COUNT 14.3 TH/MM3 (4.0-11.0)
[2017-05-16 06:11] LABS: HEMO FLAGS AUTO DIFF
[2017-05-16 06:27] LABS: OVALOCYTES 1+ (NORMAL); PLATELET ESTIMATE SMEAR HIGH (NORMAL); PLATELET MORPHOLOGY NORMAL (NORMAL); SCAN/DIFF AUTO DIFF CONFIRMED
[2017-05-16 08:00] VITALS: BP 112/66; PULSE 48; RESP 16; TEMP 97.2; O2SAT 100
[2017-05-16] MEDS: DOCUSATE SODIUM 50 MG/SENNA 8.6 MG TAB PO SCH (08:36)
[2017-05-16] MEDS: SODIUM CHLORIDE 0.9% FLUSH 10 ML FLUSH IV FLUSH SCH (08:36)
[2017-05-16] MEDS: methylPREDNISolone SOD SUCC 40 MG/1 ML VIAL IV PUSH SCH (08:36)
[2017-05-16] MEDS ORDERED: PRED10 PO (10:48)
[2017-05-16] MEDS ORDERED: MESA1TAB2 PO (10:48)
--- NOTE | 2017-05-16 10:49 | HHI.DCPOC ---
Discharge Care Plan Diagnosis: (1) Inflammatory bowel disease (2) Crohn disease Goals to Promote Your Health * To prevent worsening of your condition and complications * To maintain your health at the optimal level Directions to Meet Your Goals Take your medications as prescribed Follow your dietary instruction Follow activity as directed Keep your appointments as scheduled Take your immunizations and boosters as scheduled If your symptoms worsen call your PCP, if no PCP go to Urgent Care Center or Emergency Room Smoking is Dangerous to Your Health. Avoid second hand smoke Call the 24-hour hour crisis hotline for domestic abuse at Marcial Gonzalez May 16, 2017 10:49
--- NOTE | 2017-05-16 10:58 | HHI.DS ---
Discharge Summary Admission Date May 13, 2017 at 22:01 Discharge Date: May 16, 2017 Admitting Diagnosis Crohn's disease, abdominal pain (1) Crohn disease ICD Code: K50.90 - Crohn's disease, unspecified, without complications Status: Acute (2) Abdominal pain ICD Code: R10.9 - Unspecified abdominal pain Status: Acute (3) Inflammatory bowel disease ICD Code: K52.9 - Noninfective gastroenteritis and colitis, unspecified Procedures None Brief History - From Admission 22-year-old male with a history of inflammatory bowel disease presents with a three-week history of worsening sharp, colicky left lower quadrant pain sometimes radiating to back. He reports decreased appetite but no nausea or vomiting. He reports very poor sleep due to severe pain. He also reports near syncopal episode yesterday morning feeling as if he was going to pass out in the shower. He denies any chest pain or shortness of breath. Does report occasional hematochezia, however not over the past day. CBC/BMP: 05/16/17 0550 05/15/17 0601 Significant Findings Laboratory Tests Test 05/13/17 20:00 05/13/17 20:36 05/14/17 07:22 05/14/17 21:15 White Blood Count 14.8 TH/MM3 (4.0-11.0) Hemoglobin 10.3 GM/DL (13.0-17.0) 10.0 GM/DL (13.0-17.0) Hematocrit 32.2 % (39.0-51.0) 32.3 % (39.0-51.0) Mean Corpuscular Volume 64.6 FL (80.0-100.0) 66.2 FL (80.0-100.0) Mean Corpuscular Hemoglobin 20.7 PG (27.0-34.0) 20.5 PG (27.0-34.0) Red Cell Distribution Width 20.9 % (11.6-17.2) 21.1 % (11.6-17.2) Platelet Count 633 TH/MM3 (150-450) 531 TH/MM3 (150-450) Mean Platelet Volume 6.3 FL (7.0-11.0) 6.7 FL (7.0-11.0) Neutrophils (%) (Auto) 83.7 % (16.0-70.0) 94.0 % (16.0-70.0) Lymphocytes (%) (Auto) 6.4 % (9.0-44.0) 4.8 % (9.0-44.0) Basophils (%) (Auto) 2.9 % (0.0-2.0) Neutrophils # (Auto) 12.5 TH/MM3 (1.8-7.7) 10.3 TH/MM3 (1.8-7.7) Lymphocytes # (Auto) 0.9 TH/MM3 (1.0-4.8) 0.5 TH/MM3 (1.0-4.8) Monocytes # (Auto) 1.0 TH/MM3 (0-0.9) Basophils # (Auto) 0.4 TH/MM3 (0-0.2) Platelet Estimate HIGH (NORMAL) HIGH (NORMAL) Ovalocytes 1+ (NORMAL) 1+ (NORMAL) Erythrocyte Sedimentation Rate 61 mm/hr (0-15) Random Glucose 122 MG/DL (74-106) 148 MG/DL (74-106) Albumin 2.8 GM/DL (3.4-5.0) 2.8 GM/DL (3.4-5.0) Calcium Level 8.3 MG/DL (8.5-10.1) Aspartate Amino Transf (AST/SGOT) 8 U/L (15-37) 7 U/L (15-37) Sodium Level 132 MEQ/L (136-145) Mean Corpuscular Hemoglobin Concent 31.0 % (32.0-36.0) Rouleau PRESENT (NORMAL) Total Protein 8.3 GM/DL (6.4-8.2) Iron Level 16 MCG/DL (65-175) Percent Iron Saturation 6.1 % (20-50) Test 05/15/17 06:01 05/16/17 05:50 White Blood Count 18.7 TH/MM3 (4.0-11.0) 14.3 TH/MM3 (4.0-11.0) Hemoglobin 9.5 GM/DL (13.0-17.0) 10.4 GM/DL (13.0-17.0) Hematocrit 30.0 % (39.0-51.0) 33.2 % (39.0-51.0) Mean Corpuscular Volume 66.5 FL (80.0-100.0) 66.7 FL (80.0-100.0) Mean Corpuscular Hemoglobin 21.0 PG (27.0-34.0) 21.0 PG (27.0-34.0) Mean Corpuscular Hemoglobin Concent 31.5 % (32.0-36.0) 31.5 % (32.0-36.0) Red Cell Distribution Width 21.1 % (11.6-17.2) 21.3 % (11.6-17.2) Platelet Count 585 TH/MM3 (150-450) 640 TH/MM3 (150-450) Mean Platelet Volume 6.9 FL (7.0-11.0) 6.7 FL (7.0-11.0) Neutrophils (%) (Auto) 94.7 % (16.0-70.0) 90.9 % (16.0-70.0) Lymphocytes (%) (Auto) 3.5 % (9.0-44.0) 6.4 % (9.0-44.0) Neutrophils # (Auto) 17.6 TH/MM3 (1.8-7.7) 13.0 TH/MM3 (1.8-7.7) Lymphocytes # (Auto) 0.7 TH/MM3 (1.0-4.8) 0.9 TH/MM3 (1.0-4.8) Random Glucose 129 MG/DL (74-106) Albumin 2.5 GM/DL (3.4-5.0) Platelet Estimate HIGH (NORMAL) Ovalocytes 1+ (NORMAL) Imaging Last Impressions Abdomen/Pelvis CT 05/13/171934 Signed Impressions: Service Date/Time: May 21:09 - CONCLUSION: 1. New inflammatory process involving a couple of loops of proximal jejunum with progression in the inflammatory process involving the appendix and stable inflammatory process involving the descending colon. This constellation of findings would suggest Crohn's disease. No abscess or perforation. Rico Howell Jr., MD PE at Discharge GENERAL: Well-developed, well-nourished, in no acute distress. alert and orientated HEENT: Head is normocephalic without any lesions or masses noted. Facial features are symmetric. Eyes: Extraocular muscles are intact. Conjunctivae were clear. NECK: Supple without any masses. Trachea midline no deviation. No JVD, CARDIAC: Regular rhythm, regular rate. S1/S2 are heard. No murmurs gallops or rubs. LUNGS: Clear to auscultation bilaterally. No wheeze, rhonchi or rales. No use of accessory muscles on inspiration or expiration. ABDOMEN: Soft, nontender. Nondistended. Bowel sounds heard in all 4 quadrants. No organomegaly or masses. Negative rebound, negative guarding EXTREMITIES: No edema, pulses are equal bilaterally. No cyanosis or clubbing NEUROLOGY: Mood and affect appear appropriate. Cranial nerves II through XII grossly intact. Moving all extremities, speech is clear Hospital Course 22 year-old male with known history of inflammatory bowel disease, Crohn's disease who presented to hospital because of three-week history worsening sharp, colicky left lower abdominal pain. Patient was recently hospitalized for same condition on May 04, 2017. During that stay patient did undergo colonoscopy in which did show abscesses consistent with chronic colitis consistent with inflammatory bowel disease. Patient was discharged home on steroids and mesalamine, however patient did not fill prescriptions and did not take any outpatient medications. 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 Patient represented to the emergency department and has CT scan done which did show inflammatory process involving loops of the proximal jejunum and progression in the inflammatory process involving the appendix. Patient was admitted the hospital started on IV fluids, empirical antibiotics. Patient responded to treatment well. He is tolerating diet at this time. His pain is manageable. He has not received any pain medication during his stay. [facility]ster was consulted who recommended continued course of treatment. Discussion with them today indicates patient can be discharged home on prolonged steroid dose and mesalamine. manager [employer] consulted to arrange for the patient to have his antibiotics in hand prior to discharge as to not have a reason for the patient to be noncompliant due to insurance or financial reasons. We'll do this to try to prevent the patient from readmission for same symptoms due to noncompliance. Patient clinically stable this time. Upon discharge accordingly. Pt Condition on Discharge: Stable Discharge Disposition: Discharge Home Discharge Time: > 30 minutes Discharge Instructions DIET: Follow Instructions for: As Tolerated, No Restrictions Activities you can perform: Regular-No Restrictions Activities to Avoid: Driving for 24 hrs Follow up Referrals: Gastroenterology - 2 Weeks @ [facility] PCP Follow-up - 1 Week New Medications: Prednisone (Prednisone) 10 Mg Tab 10 MG PO DIRECTED for Crohn's disease, #147 TAB 0 Refills 4 tablets daily for 2 weeks, then 3 tablets daily for 2 weeks, then 2 tablets daily for 2 weeks, then 1 tablet daily for 2 weeks, then 1/2 tablet daily for 2 weeks Continued Medications: Mesalamine (Mesalamine DR) 800 Mg Tab 1600 MG PO Q8H for ibd for 30 Days, #180 TAB (This prescription has been renewed ) Marcial Gonzalez May 16, 2017 10:58
[2017-05-16 12:00] VITALS: BP 117/77; PULSE 56; RESP 16; TEMP 97.6; O2SAT 100
== END 2017-05-16 15:05 | disposition home or self-care (01) | DRG 872 ==
LOC: PHED 18:14 → PHEDA 22:01 → PH3A 23:21
PROVIDERS: ADMIT Hospitalist; ATTEND Hospitalist
DX: A41.9 Sepsis, unspecified organism (principal); E87.1 Hypo-osmolality and hyponatremia; K50.90 Crohn's disease, unspecified, without complications; R00.0 Tachycardia, unspecified; Z79.52 Long term (current) use of systemic steroids; Z91.19 Patient's noncompliance with other medical treatment and regimen; D50.9 Iron deficiency anemia, unspecified; E86.0 Dehydration
CPT/HCPCS: 74177; 80053; 80069; 81001; 82728; 83540; 83550; 83690; 83735; 85025; 85652; 86850; 86900; 86901; 87328; 87329; 87493; 87506; 96361; 96374; 96375; J1885; J2405; J2543; J2920; J2930; J7030; Q9963; Q9967

== ENCOUNTER 2017-05-26 23:23 | Inpatient (IN) | payer OTHER ==
[~2017-05-26] VITALS: Ht 182.9 cm; Wt 64.1 kg
[~2017-05-26 23:23] MED LIST changes: -NU-I150C PO; +PRED10 PO; -PRED10PA PO; -THERTAB15 PO
[2017-05-26 23:25] VITALS: BP 119/67; PULSE 70; RESP 16; TEMP 97.5; O2SAT 100
[2017-05-26 23:44] VITALS: BP 119/67; PULSE 70; RESP 16; TEMP 97.5; O2SAT 100
[2017-05-27] VITALS (7 sets, daily range): BP systolic 104–141; BP diastolic 64–90; PULSE 60–74; RESP 14–20; TEMP 96.7–98.4; O2SAT 98–100
--- NOTE | 2017-05-27 00:44 | PD ---
HPI Chief Complaint: Complaint Time Seen by Provider: 00:37 Travel History International Travel<30 days: No Contact w/Intl Traveler<30days: No Traveled to known affect area: No History of Present Illness HPI The patient is a 22-year-old male that has a history of either regional enteritis or ulcerative colitis. He says his diagnosis has gone back and forth. 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 He has had multiple rectal abscesses and fissures and alternating constipation and diarrhea. He has constipation since yesterday and some left lower quadrant pain tonight. He states usually that he can resolve the constipation by taking fruit/fruit juices. He denies any fever or rectal bleeding. He states he will get insurance in 2018 and get a fishing guide at that time. The patient states he has had a cousin that had bowel problems but he does not know specifically what kind of bowel problems. PFSH Past Medical History Autoimmune Disease: No Cancer: No Cardiovascular Problems: No Chest Pain: Yes Cerebrovascular Accident: No Diabetes: No Diminished Hearing: No Gastrointestinal Disorders: Yes ( CHRON'S ) Genitourinary: No Headaches: Yes Hepatitis: No Hiatal Hernia: No Medical other: Yes (ULCERATIVE COLITIS) Musculoskeletal: No Neurologic: No Psychiatric: No Reproductive: No Respiratory: No Immunizations Current: Yes Migraines: Yes Seizures: No Thyroid Disease: No Influenza Vaccination: No PNEUMOCCOCAL Vaccine (Year): 2 ?: Not Past Surgical History Abdominal Surgery: Yes (COLONOSCOPYS) Cardiac Surgery: No Ear Surgery: No Eye Surgery: No Genitourinary Surgery: No Neurologic Surgery: No Thoracic Surgery: No Other Surgery: Yes (COLONOSCOPY 2014) Social History Alcohol Use: Yes (occ) Tobacco Use: No Substance Use: No Allergies-Medications (Allergen,Severity, Reaction): Coded Allergies: No Known Allergies (Verified Allergy, Unknown, 05/26/17) Reported Meds & Prescriptions Reported Meds & Active Scripts Active Prednisone 10 Mg Tab 10 Mg PO DIRECTED 4 tablets daily for 2 weeks, then 3 tablets daily for 2 weeks, then 2 tablets daily for 2 weeks, then 1 tablet daily for 2 weeks, then 1/2 tablet daily for [address] (Mesalamine) 800 Mg Tab 1,600 Mg PO Q8H 30 Days Review of Systems Except as stated in HPI: all other systems reviewed are Neg Physical Exam Narrative GENERAL: Well-nourished, well-developed patient in minimal apparent distress with his abdominal discomfort. SKIN: Focused skin assessment warm/dry. HEAD: Normocephalic. EYES: No scleral icterus. No injection or drainage. NECK: Supple, trachea midline. No JVD or lymphadenopathy. CARDIOVASCULAR: Regular rate and rhythm without murmurs, gallops, or rubs. RESPIRATORY: Breath sounds equal bilaterally. No accessory muscle use. GASTROINTESTINAL: Abdomen soft, with some slight diffuse discomfort and more discomfort in the left lower quadrant than upper quadrants, nondistended. No guarding or rebound is present. MUSCULOSKELETAL: No cyanosis, or edema. BACK: Nontender without obvious deformity. No CVA tenderness. RECTAL EXAM: No masses or tenderness, stool is brown and guaiac-negative. There are no impactions present in the rectum. Data Data Last Documented VS Vital Signs Date Time Temp Pulse Resp B/P (MAP) Pulse Ox O2 Delivery O2 Flow Rate FiO2 05/27/17 02:11 73 18 135/90 (105) 100 Room Air 05/26/17 23:44 97.5 Orders Orders Magnesium Citrate Liq (Citroma Liq) (05/27/17 00:45) Complete Blood Count With Diff (05/27/17 01:20) Comprehensive Metabolic Panel (05/27/17 01:20) Lipase (05/27/17 01:20) Urinalysis - C+S If Indicated (05/27/17 01:20) Ct Abd/Pel W Iv Contrast(Rout) (05/27/17 01:20) Iv Access Insert/Monitor (05/27/17 01:20) Ecg Monitoring (05/27/17 01:20) Oximetry (05/27/17 01:20) Sodium Chlor 0.9% 1000 Ml Inj (Ns 1000 M (05/27/17 01:20) Sodium Chloride 0.9% Flush (Ns Flush) (05/27/17 01:30) Iohexol 350 Inj (Omnipaque 350 Inj) (05/27/17 01:47) Hydromorphone Pf Inj (Dilaudid Pf Inj) (05/27/17 02:00) Ondansetron Inj (Zofran Inj) (05/27/17 02:00) Sodium Chlor 0.9% 1000 Ml Inj (Ns 1000 M (05/27/17 01:53) Admit Order (Ed Use Only) (05/27/17 02:13) Labs Laboratory Tests Test 05/27/17 01:30 White Blood Count 19.5 TH/MM3 Red Blood Count 5.27 MIL/MM3 Hemoglobin 11.2 GM/DL Hematocrit 35.7 % Mean Corpuscular Volume 67.7 FL Mean Corpuscular Hemoglobin 21.2 PG Mean Corpuscular Hemoglobin Concent 31.3 % Red Cell Distribution Width 23.3 % Platelet Count 588 TH/MM3 Mean Platelet Volume 6.7 FL Neutrophils (%) (Auto) 82.1 % Lymphocytes (%) (Auto) 8.7 % Monocytes (%) (Auto) 5.7 % Eosinophils (%) (Auto) 0.1 % Basophils (%) (Auto) 3.4 % Neutrophils # (Auto) 16.0 TH/MM3 Lymphocytes # (Auto) 1.7 TH/MM3 Monocytes # (Auto) 1.1 TH/MM3 Eosinophils # (Auto) 0.0 TH/MM3 Basophils # (Auto) 0.7 TH/MM3 CBC Comment AUTO DIFF Differential Comment AUTO DIFF CONFIRMED Platelet Estimate HIGH Platelet Morphology Comment NORMAL Ovalocytes 1+ Blood Urea Nitrogen 11 MG/DL Creatinine 0.70 MG/DL Random Glucose 119 MG/DL Total Protein 7.9 GM/DL Albumin 3.3 GM/DL Calcium Level 8.9 MG/DL Alkaline Phosphatase 97 U/L Aspartate Amino Transf (AST/SGOT) 13 U/L Alanine Aminotransferase (ALT/SGPT) 57 U/L Total Bilirubin 0.3 MG/DL Sodium Level 137 MEQ/L Potassium Level 3.8 MEQ/L Chloride Level 101 MEQ/L Carbon Dioxide Level 29.8 MEQ/L Anion Gap 6 MEQ/L Estimat Glomerular Filtration Rate 140 ML/MIN Lipase 91 U/L [facility] Medical Decision Making Medical Screen Exam Complete: Yes Emergency Medical Condition: Yes Medical Record Reviewed: Yes Interpretation(s) The CBC shows a white count of 19,500 with 92% neutrophils Differential Diagnosis Colitis, appendicitis, ulcerative colitis, diverticulitis, appendiceal perforation, intra-abdominal abscess, electrolyte disorder, anemia, perforated bowel, small bowel obstruction Narrative Course The patient has severe colitis. The appendix also is involved. He does have a significant leukocytosis. There is no evidence of any intra-abdominal abscess or perforation. Patient does have inflammatory bowel disease and likely has ulcerative colitis. Physician Communication Physician Communication I discussed the patient with Dr. Suarez and the patient will be admitted to her. I also discussed the patient with Dr. Mitchell Ivey who suggested counseling colorectal in the morning. Diagnosis Primary Impression: Ulcerative colitis Additional Impressions: Appendicitis Intractable abdominal pain Admitting Information Admitting Physician Requests: Ra Felix MD May 27, 2017 00:44
[2017-05-27] MEDS ORDERED: MAGNESIUM CITRATE SOLN 300 ML BTL PO ONE (00:45)
[2017-05-27] MEDS ORDERED: SODIUM CHLOR 0.9% 1000 ML INJ 1,000 ML IV SCH ×2 (01:20→01:53)
[2017-05-27] MEDS ORDERED: SODIUM CHLORIDE 0.9% FLUSH 10 ML FLUSH IV FLUSH PRN ×2 (01:30→02:30)
[2017-05-27 01:44] LABS: BASOPHIL # 0.7 TH/MM3 (0-0.2); BASOPHIL % 3.4 % (0.0-2.0); EOSINOPHIL % 0.1 % (0.0-4.0); HEMATOCRIT 35.7 % (39.0-51.0); LYMPH % 8.7 % (9.0-44.0); LYMPHOCYTE # 1.7 TH/MM3 (1.0-4.8); MEAN CELL VOLUME 67.7 FL (80.0-100.0); MEAN CORPUSCULAR HEMOGLOBIN 21.2 PG (27.0-34.0); MEAN CORPUSCULAR HGB CONC 31.3 % (32.0-36.0); MONO % 5.7 % (0.0-8.0); NEUT % 82.1 % (16.0-70.0); PLATELET COUNT 588 TH/MM3 (150-450); RED BLOOD COUNT 5.27 MIL/MM3 (4.50-5.90); RED CELL DISTRIBUTION WIDTH 23.3 % (11.6-17.2); WHITE BLOOD COUNT 19.5 TH/MM3 (4.0-11.0)
[2017-05-27 01:47] LABS: HEMO FLAGS AUTO DIFF
[2017-05-27] MEDS ORDERED: IOHEXOL 350 MG/ML 10 ML VIAL (for RAD DIAG) IVCONTRAST ONE (01:47)
[2017-05-27 01:50] LABS: CHLORIDE 101 MEQ/L (98-107); POTASSIUM 3.8 MEQ/L (3.5-5.1); SODIUM (NA) 137 MEQ/L (136-145)
[2017-05-27 01:54] LABS: ANION GAP 6 MEQ/L (5-15); BICARBONATE 29.8 MEQ/L (21.0-32.0); BLOOD UREA NITROGEN 11 MG/DL (7-18)
[2017-05-27 01:57] LABS: ALT (GPT) 57 U/L (12-78); AST (GOT) 13 U/L (15-37); GLOMERULAR FILTRATION RATE 140 ML/MIN (>89)
[2017-05-27 01:58] LABS: TOTAL BILIRUBIN ADULT 0.3 MG/DL (0.2-1.0)
[2017-05-27 01:59] LABS: ALKALINE PHOSPHATASE 97 U/L (45-117)
[2017-05-27] MEDS ORDERED: ONDANSETRON HCL 4 MG/2 ML VIAL IVP ONE (02:00)
[2017-05-27] MEDS ORDERED: HYDROmorphone HCL PF 2 MG/ML VIAL IVS ONE (02:00)
[2017-05-27 02:04] LABS: OVALOCYTES 1+ (NORMAL); PLATELET ESTIMATE SMEAR HIGH (NORMAL); PLATELET MORPHOLOGY NORMAL (NORMAL); SCAN/DIFF AUTO DIFF CONFIRMED
--- NOTE | 2017-05-27 02:06 | RADRPT ---
EXAM DATE/TIME: 05/27/2017 01:41 [facility] COMPARISON: CT ABDOMEN & PELVIS W CONTRAST, May 13, 2017, 21:09. INDICATIONS : Left lower quadrant abdomen pain with constipation. Pain radiates from the LLQ to diffuse abdomen. IV CONTRAST: 100 cc Omnipaque 350 (iohexol) IV ORAL CONTRAST: No oral contrast ingested. RADIATION DOSE: 6.19 CTDIvol (mGy) MEDICAL HISTORY : Ulcerative colitis. Crohns disease. SURGICAL HISTORY : None. ENCOUNTER: Initial ACUITY: 2 days PAIN SCALE: 7/10 LOCATION: Left lower quadrant abdomen TECHNIQUE: Volumetric scanning of the abdomen and pelvis was performed. Using automated exposure control and ad justment of the mA and/or kV according to patient size, radiation dose was kept as low as reasonably achievable to obtain optimal diagnostic quality images. DICOM format image data is available electro nically for review and comparison. FINDINGS: LOWER LUNGS: The visualized lower lungs are clear. LIVER: Homogeneous density without lesion. There is no dilation of the biliary tree. No calcified gallston es. SPLEEN: Normal size without lesion. PANCREAS: Within normal limits. KIDNEYS: Normal in size and shape. There is no mass, stone or hydronephrosis. ADRENAL GLANDS: Within normal limits. VASCULAR: There is no aortic aneurysm. BOWEL/MESENTERY: Severe inflammatory changes with wall thickening seen of the sigmoid and descending colon. There is a ssociated severe narrowing of the proximal descending colon and with moderate distention of stream. S mall bowel is fluid and air-filled, slightly distended. There are persistent inflammatory changes of the appendix. Edema and fat stranding seen in both pericolic gutters, left worse than right. ABDOMINAL WALL: Within normal limits. RETROPERITONEUM: There is no lymphadenopathy. BLADDER: No wall thickening or mass. REPRODUCTIVE: Within normal limits. INGUINAL: There is no lymphadenopathy or hernia. MUSCULOSKELETAL: Within normal limits for patient age. CONCLUSION: Severe left-sided colitis. There is colonic obstruction related to wall thickening and luminal narrow ing at the level of the proximal descending colon. Persistent inflammatory changes of the appendix. N o abscess or perforation. Alejo Slater MD on May 27, 2017 at 2:00 Board Certified Radiologist. This report was verified electronically.
[2017-05-27] MEDS ORDERED: NALOXONE HCL 0.4 MG/ML AMP IV PUSH PRN (02:30)
[2017-05-27] MEDS ORDERED: ACETAMINOPHEN 325 MG TAB PO PRN (02:30)
[2017-05-27] MEDS ORDERED: LACTULOSE SYRUP 20 GM/30 ML CUP PO PRN (02:30)
[2017-05-27] MEDS ORDERED: BISACODYL 10 MG SUPP RECTAL PRN (02:30)
[2017-05-27] MEDS ORDERED: SENNOSIDES 8.6 MG TAB PO PRN (02:30)
[2017-05-27] MEDS ORDERED: PIPERACIL-TAZO 4.5 GM PREMIX 100 ML IV ONE (02:30)
[2017-05-27] MEDS ORDERED: MAGNESIUM HYDROXIDE SUSP 30 ML CUP PO PRN (02:30)
[2017-05-27] MEDS: metroNIDAZOLE 500 MG INJ 100 ML IV SCH ×3 (03:14→17:37)
[2017-05-27] MEDS: SODIUM CHLOR 0.9% 1000 ML INJ 1,000 ML IV SCH ×2 (04:03→17:37)
[2017-05-27] MEDS: CIPROFLOXACIN 400 MG PREMIX 200 ML IV SCH ×2 (04:04→17:37)
[2017-05-27] MEDS ORDERED: HYDROmorphone HCL PF 2 MG/ML VIAL IV PUSH ONE (06:15)
[2017-05-27] MEDS: HYDROmorphone HCL PF 1 MG/ML VIAL IV PUSH PRN ×5 (06:18→21:50)
[2017-05-27] MEDS ORDERED: ENALAPRILAT 2.5 MG/2 ML VIAL IV PUSH PRN (07:45)
[2017-05-27] MEDS ORDERED: RESP: ALBUTEROL 2.5 MG/IPRATROPIUM 0.5 MG NEB (PRN) NEB (07:45)
--- NOTE | 2017-05-27 08:55 | HHI.HP ---
[facility] Service [place] [facility] Primary Care Physician No Primary Care Physician Admission Diagnosis colitis, appendicitis Diagnoses: (1) Abdominal pain Diagnosis: Principal (2) Appendicitis Diagnosis: Principal (3) Crohn disease Diagnosis: Principal Chief Complaint: Abdominal pain Travel History International Travel<30 Days: No Contact w/Intl Traveler <30 Da: No Traveled to Known Affected Are: No History of Present Illness Written by Marcial Gonzalez, acting as scribe for Dr. Roman on 05/27/17 at 08 :54. This is a 22 year-old male with known history of Crohn's disease to has been admitted to hospital multiple times in the last few months for exacerbation. Last episode was due to unable to obtain medications. Patient was discharged home with medications in hand and prescriptions to provide him full treatment. Patient did obtain patient care assistance at time. Patient was doing well until yesterday when he started developing progressive pain throughout the day where became intolerable so he came to emergency department for evaluation. Patient has CT scan done which that show severe left-sided colitis. There is a colonic obstruction related to the wall thickening and luminal narrowing at the level of the proximal distal colon. Persistent inflammatory changes of the appendix. No abscess or formation. Because of those reasons is recommended that the patient be admitted for further evaluation management. Patient states that his bowel movements have become more infrequent, stool has been more solid. He has not noticed any blood in his stool at this time. Review of Systems Gastrointestinal: COMPLAINS OF: Abdominal pain Except as stated in HPI: all other systems reviewed are Neg Past Family Social History Past Medical History Crohn's disease Past Surgical History EGD, colonoscopies Abscess drained from right buttocks Reported Medications Reported Meds & Active Scripts Active Prednisone 10 Mg Tab 10 Mg PO DIRECTED 4 tablets daily for 2 weeks, then 3 tablets daily for 2 weeks, then 2 tablets daily for 2 weeks, then 1 tablet daily for 2 weeks, then 1/2 tablet daily for [address] (Mesalamine) 800 Mg Tab 1,600 Mg PO Q8H 30 Days Allergies: Coded Allergies: No Known Allergies (Verified Allergy, Unknown, 05/26/17) Family History Reviewed and significant for heart disease, diabetes and cancer Social History Patient does drink alcohol occasionally. Denies any tobacco or illicit drugs Physical Exam Vital Signs Vital Signs Date Time Temp Pulse Resp B/P (MAP) Pulse Ox O2 Delivery O2 Flow Rate FiO2 05/27/17 03:38 16 100 05/27/17 03:30 97.0 74 16 141/84 (103) 100 05/27/17 02:11 73 18 135/90 (105) 100 Room Air 05/27/17 01:52 73 18 135/90 (105) 100 Room Air 05/26/17 23:50 70 18 05/26/17 23:44 97.5 70 16 119/67 (84) 100 05/26/17 23:25 97.5 70 16 119/67 (84) 100 Physical Exam GENERAL: Well-developed, well-nourished, in no acute distress. alert and orientated HEENT: Head is normocephalic without any lesions or masses noted. Facial features are symmetric. Eyes: Pupils equal round reactive to light. Extraocular muscles are intact. Conjunctivae were clear. Oropharyngeal: Pharynx without any erythema edema. Tongue is midline without deviation. Buccal mucosa is moist without any masses or lesions NECK: Supple without any masses. Trachea midline no deviation. No JVD, no bruits are appreciated CARDIAC: Regular rhythm, regular rate. S1/S2 are heard. No murmurs gallops or rubs. LUNGS: Clear to auscultation bilaterally. No wheeze, rhonchi or rales. No use of accessory muscles on inspiration or expiration. ABDOMEN: Soft, mild diffuse tenderness noted throughout abdomen no point tenderness.. Nondistended. Bowel sounds heard in all 4 quadrants. No organomegaly or masses. Negative rebound, negative guarding EXTREMITIES: No edema, pulses are equal bilaterally. No cyanosis or clubbing NEUROLOGY: Mood and affect appear appropriate. Cranial nerves II through XII grossly intact. Muscle strength 5/5 in upper and lower extremities bilaterally. Deep tendon reflexes are 2+ in upper and lower extremities bilaterally. Laboratory Laboratory Tests Test 05/27/17 01:30 White Blood Count 19.5 Red Blood Count 5.27 Hemoglobin 11.2 Hematocrit 35.7 Mean Corpuscular Volume 67.7 Mean Corpuscular Hemoglobin 21.2 Mean Corpuscular Hemoglobin Concent 31.3 Red Cell Distribution Width 23.3 Platelet Count 588 Mean Platelet Volume 6.7 Neutrophils (%) (Auto) 82.1 Lymphocytes (%) (Auto) 8.7 Monocytes (%) (Auto) 5.7 Eosinophils (%) (Auto) 0.1 Basophils (%) (Auto) 3.4 Neutrophils # (Auto) 16.0 Lymphocytes # (Auto) 1.7 Monocytes # (Auto) 1.1 Eosinophils # (Auto) 0.0 Basophils # (Auto) 0.7 CBC Comment AUTO DIFF Differential Comment AUTO DIFF CONFIRMED Platelet Estimate HIGH Platelet Morphology Comment NORMAL Ovalocytes 1+ Blood Urea Nitrogen 11 Creatinine 0.70 Random Glucose 119 Total Protein 7.9 Albumin 3.3 Calcium Level 8.9 Alkaline Phosphatase 97 Aspartate Amino Transf (AST/SGOT) 13 Alanine Aminotransferase (ALT/SGPT) 57 Total Bilirubin 0.3 Sodium Level 137 Potassium Level 3.8 Chloride Level 101 Carbon Dioxide Level 29.8 Anion Gap 6 Estimat Glomerular Filtration Rate 140 Lipase 91 Result Diagram: 05/27/1712905/27/17129 Imaging Last Impressions Abdomen/Pelvis CT 05/27/17119 Signed Impressions: Service Date/Time: May 01:41 - CONCLUSION: Severe left-sided colitis. There is colonic obstruction related to wall thickening and luminal narrowing at the level of the proximal descending colon. Persistent inflammatory changes of the appendix. No abscess or perforation. Alejo Slater MD Septic Shock Reassessment Heart: Regular rate and rhythm Lungs: Clear Skin: Warm Peripheral Pulses: Bounding Right Radial Bounding Left Radial Capillary Refill: Brisk, <2 seconds Caprini VTE Risk Assessment Caprini VTE Risk Assessment: No/Low Risk (score <= 1) Caprini Risk Assessment Model Point Value = 1 Point Value = 2 Point Value = 3 Point Value = 5 Age 41-60 Minor surgery BMI > 25 kg/m2 Swollen legs Varicose veins or History of unexplained or recurrent spontaneous Oral contraceptives or hormone replacement Sepsis (< 1 month) Serious lung disease, including pneumonia (< 1 month) Abnormal pulmonary function Acute myocardial infarction Congestive heart failure (< 1 month) History of inflammatory bowel disease Medical patient at bed rest Age 61-74 Arthroscopic surgery Major open surgery (> 45 min) Laparoscopic surgery (> 45 min) Malignancy Confined to bed (> 72 hours) Immobilizing plaster cast Central venous access Age >= 75 History of VTE Family history of VTE Factor V Leiden Prothrombin [id number] Lupus anticoagulant Anticardiolipin antibodies Elevated serum homocysteine Heparin-induced thrombocytopenia Other congenital or acquired thrombophilia Stroke (< 1 month) Elective arthroplasty Hip, pelvis, or leg fracture Acute spinal cord injury (< 1 month) Prophylaxis Regimen Total Risk Factor Score Risk Level Prophylaxis Regimen 0-1 Low Early ambulation 2 Moderate Order ONE of the following: *Sequential Compression Device (SCD) *Heparin 5000 units SQ BID 3-4 Higher Order ONE of the following medications: *Heparin 5000 units SQ TID *Enoxaparin/Lovenox 40 mg SQ daily (WT < 150 kg, CrCl > 30 mL/min) *Enoxaparin/Lovenox 30 mg SQ daily (WT < 150 kg, CrCl > 10-29 mL/min) *Enoxaparin/Lovenox 30 mg SQ BID (WT < 150 kg, CrCl > 30 mL/min) AND/OR *Sequential Compression Device (SCD) 5 or more Highest Order ONE of the following medications: *Heparin 5000 units SQ TID (Preferred with Epidurals) *Enoxaparin/Lovenox 40 mg SQ daily (WT < 150 kg, CrCl > 30 mL/min) *Enoxaparin/Lovenox 30 mg SQ daily (WT < 150 kg, CrCl > 10-29 mL/min) *Enoxaparin/Lovenox 30 mg SQ BID (WT < 150 kg, CrCl > 30 mL/min) AND *Sequential Compression Device (SCD) Assessment and Plan Problem List: (1) Inflammatory bowel disease ICD Code: K52.9 - Noninfective gastroenteritis and colitis, unspecified Assessment and Plan Abdominal pain with colonic obstruction from severe colitis, secondary to Crohn' s disease Continue steroids, mesalamine Continue Cipro, Flagyl Continue pain control GI consulted for recommendations Nothing by mouth until cleared by GI Continue IV fluids Leukocytosis could be secondary to infection, however likely secondary to steroid use DVT prevention Sequential compression devices, low risk, early ambulation This note was transcribed by yang Gonzalez. I, Dr. Gume Roman personally performed the history, physical exam, and medical decision making; and confirmed the accuracy of the information in the transcribed note. Authenticated by Dr. Gume Roman on 05/27/17 at 08:54. Code Status Full code Discussed Condition With Patient Physician Certification 2 Midnight Certification Type: Admission for Inpatient Services Order for Inpatient Services The services are ordered in accordance with Medicare regulations or non- Medicare payer requirements, as applicable. In the case of services not specified as inpatient-only, they are appropriately provided as inpatient services in accordance with the 2-midnight benchmark. Estimated LOS (days): 3 days is the estimated time the patient will need to remain in the hospital, assuming treatment plan goals are met and no additional complications. Post-Hospital Plan: Not yet determined Marcial Gonzalez May 27, 2017 08:55 Gume Roman MD May 27, 2017 08:55
[2017-05-27] MEDS ORDERED: DOCUSATE SODIUM 50 MG/SENNA 8.6 MG TAB PO SCH (09:00)
[2017-05-27] MEDS: PANTOPRAZOLE SOD 40 MG DELAYED RELEASE TAB PO SCH (09:51)
[2017-05-27] MEDS: ONDANSETRON HCL 4 MG/2 ML VIAL IVP PRN ×2 (09:51→17:38)
[2017-05-27] MEDS: MESALAMINE HD 800 MG DELAYED RELEASE TAB PO SCH ×2 (09:51→16:00)
[2017-05-27] MEDS: SODIUM CHLORIDE 0.9% FLUSH 10 ML FLUSH IV FLUSH SCH ×2 (09:55→21:00)
[2017-05-27] MEDS ORDERED: predniSONE 20 MG TAB PO SCH (13:00)
--- NOTE | 2017-05-27 14:42 | PD.CONS ---
HPI History of Present Illness This is a 22 year old male with a history of inflammatory bowel disease- ulcerative colitis vs. crohns, who presented to the ER for evaluation of abdominal pain with the inability to have a bowel movement. He reports that he was diagnosed with Ulcerative Colitis back in 2007. He reports that he did not do well on the mesalamine products and was doing well on Remicade for a few years, but then lost his insurance and has been off of this since around 2014. He has had multiple hospitalizations for exacerbation of his inflammatory bowel disease. He was recently hospitalized from 05/13-05/16 for acute exacerbation of Crohn's disease. He was treated with steroids and Asacol HD and his symptoms improved and he was discharged home on Prednisone 40mg po daily and Asacol HD 1600 po daily. He states that he was doing well for a short period of time, but woke up on Wednesday and was unable to have a bowel movement. He states typically, he has 8-9 bowel movements throughout the day and another 3-4 at night. He occasionally has bright red blood on the tissue, but states this is related more to a fissure. He reports that he passed some gas yesterday, but has not passed any today and continues to have diffuse abdominal discomfort. He had a colonoscopy (03/05/17) and this revealed 1. Terminal ileum is normal 2. Severe ulcerations deep with friable mucosa throughout the colon with significant amount of bleeding from the mucosa biopsies were done from the cecum and sigmoid. It was recommended that he have a repeat colonoscopy in 2 months and the plan was to consider biologic treatment once his insurance goes through. (Sharee Saavedra) [facility] Past Medical History Ulcerative colitis Past Surgical History EGD Multiple colonoscopies Abscess drained from right buttocks (Sharee Saavedra) Coded Allergies: No Known Allergies (Verified Allergy, Unknown, 05/26/17) Medications Last Impressions Abdomen/Pelvis CT 05/27/17 0120 Signed Impressions: Service Date/Time: , May 27, 2017 01:41 - CONCLUSION: Severe left-sided colitis. There is colonic obstruction related to wall thickening and luminal narrowing at the level of the proximal descending colon. Persistent inflammatory changes of the appendix. No abscess or perforation. Alejo Slater MD Family History Reviewed and significant for heart disease, diabetes and cancer Social History Patient does drink alcohol occasionally. Denies any tobacco or illicit drugs (Sharee Saavedraanali ROSA) Review of Systems Constitutional: COMPLAINS OF: Fatigue, DENIES: Weight loss Respiratory: DENIES: Cough Cardiovascular: DENIES: Chest pain Gastrointestinal: COMPLAINS OF: Abdominal pain, Diarrhea, Swelling of Abdomen Hematologic/lymphatic: DENIES: Bruising Neurologic: DENIES: Headache Psychiatric: DENIES: Confusion (SaavedraPerryy Lacey ROSA) GI Exam Vitals I&O Vital Signs Date Time Temp Pulse Resp B/P (MAP) Pulse Ox O2 Delivery O2 Flow Rate FiO2 05/27/17 12:00 97.5 62 16 104/64 (77) 99 05/27/17 10:49 20 05/27/17 08:00 96.7 60 16 120/73 (89) 100 05/27/17 03:38 16 100 05/27/17 03:30 97.0 74 16 141/84 (103) 100 05/27/17 02:11 73 18 135/90 (105) 100 Room Air 05/27/17 01:52 73 18 135/90 (105) 100 Room Air 05/26/17 23:50 70 18 05/26/17 23:44 97.5 70 16 119/67 (84) 100 05/26/17 23:25 97.5 70 16 119/67 (84) 100 I/O 05/26/17 05/26/17 05/26/17 05/27/17 05/27/17 05/27/17 07:00 15:00 23:00 07:00 15:00 23:00 Intake Total 2447 ml Balance 2447 ml Intake IV Total 2447 ml # Voids 2 # Bowel Movements 0 Imaging Last Impressions Abdomen/Pelvis CT 05/27/17 0120 Signed Impressions: Service Date/Time: May 01:41 - CONCLUSION: Severe left-sided colitis. There is colonic obstruction related to wall thickening and luminal narrowing at the level of the proximal descending colon. Persistent inflammatory changes of the appendix. No abscess or perforation. Alejo Slater MD Laboratory Test 05/27/17 01:30 White Blood Count 19.5 TH/MM3 Red Blood Count 5.27 MIL/MM3 Hemoglobin 11.2 GM/DL Hematocrit 35.7 % Mean Corpuscular Volume 67.7 FL Mean Corpuscular Hemoglobin 21.2 PG Mean Corpuscular Hemoglobin Concent 31.3 % Red Cell Distribution Width 23.3 % Platelet Count 588 TH/MM3 Mean Platelet Volume 6.7 FL Neutrophils (%) (Auto) 82.1 % Lymphocytes (%) (Auto) 8.7 % Monocytes (%) (Auto) 5.7 % Eosinophils (%) (Auto) 0.1 % Basophils (%) (Auto) 3.4 % Neutrophils # (Auto) 16.0 TH/MM3 Lymphocytes # (Auto) 1.7 TH/MM3 Monocytes # (Auto) 1.1 TH/MM3 Eosinophils # (Auto) 0.0 TH/MM3 Basophils # (Auto) 0.7 TH/MM3 CBC Comment AUTO DIFF Differential Comment AUTO DIFF CONFIRMED Platelet Estimate HIGH Platelet Morphology Comment NORMAL Ovalocytes 1+ Blood Urea Nitrogen 11 MG/DL Creatinine 0.70 MG/DL Random Glucose 119 MG/DL Total Protein 7.9 GM/DL Albumin 3.3 GM/DL Calcium Level 8.9 MG/DL Alkaline Phosphatase 97 U/L Aspartate Amino Transf (AST/SGOT) 13 U/L Alanine Aminotransferase (ALT/SGPT) 57 U/L Total Bilirubin 0.3 MG/DL Sodium Level 137 MEQ/L Potassium Level 3.8 MEQ/L Chloride Level 101 MEQ/L Carbon Dioxide Level 29.8 MEQ/L Anion Gap 6 MEQ/L Estimat Glomerular Filtration Rate 140 ML/MIN Lipase 91 U/L Physical Examination HEENT: Normocephalic; atraumatic; no jaundice. CHEST: CTA CARDIAC: RRR ABDOMEN: Soft, nondistended, mild tenderness; no hepatosplenomegaly; bowel sounds are present in all four quadrants. EXTREMITIES: No clubbing, cyanosis, or edema. SKIN: Normal; no rash; no jaundice. 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 (Sharee Saavedra) Assessment and Plan Plan ASSESSMENT: - Acute exacerbation of Ulcerative colitis. Dx in 2007. He was on Remicade in the past and did well on this, but has been off since 2014 secondary to lack of insurance. He was recently hospitalized for a flare and discharged home on Prednisone 40mg po daily and Asacol HD 1600mg po TID. He was doing well on this until yesterday, when he developed pain and was not able to have a bowel movement (typically has 8-9 loose stools in am and another 3-4 at night). Last colonoscopy (03/05/17) and this revealed 1. Terminal ileum is normal 2. Severe ulcerations deep with friable mucosa throughout the colon with significant amount of bleeding from the mucosa biopsies were done from the cecum and sigmoid. CT scan abdomen and pelvis (05/27/17)--> Severe left sided colitis. There is colonic obstruction related to wall thickening and luminal narrowing at the level of proximal descending colon. Persistent inflammatory changes of the appendix. No abscess or perforation. Solumedrol. Asacol HD. Consider biologics once his insurance goes through (expected to have [facility] in July). - PSBO. CT with colon obstruction related to wall thickening and luminal narrowing at the level of proximal descending colon. Also with some inflammatory changes of the appendix. Clinically, his abdomen is soft, nondistended, with tenderness. He reports no flatus today and no bm since Wednesday. On steroids, will get GS evaluation. - Abnormal imaging with inflammatory changes of the appendix. S/P GS evaluation in past, likely reactive secondary to IBD - Anemia, microcytic, hypochromic. Stable. PLAN: - NPO - Cont. Solumedrol - Cont. Asacol HD - Cont. Cipro/Flagyl - KUB in am - GS evaluation - Consider biologics once he obtains insurance (expected to have [facility]CP in July ) - Supportive care - Further recommendations to follow based on results of above - PT seen and examined by Dr. Cortes and myself and this note is written on his behalf (Sharee Saavedra) Physician Comments Seen and examined with [facility], long history of ulcerative colitis. IV solumederol. Surgical consult. Needs Remicaide or Humira. ? need for repeat colonoscopy at this time. Will follow. (Kyara Cortes MD) Sharee Saavedra May 27, 2017 14:42 Kyara Cortes MD May 27, 2017 14:57
[2017-05-27] MEDS: methylPREDNISolone SOD SUCC 40 MG/1 ML VIAL IV PUSH SCH (17:36)
[2017-05-27 21:42] LABS: BLOOD, URINE NEG (NEG); GLUCOSE,URINE NEG (NEG); KETONE, URINE NEG (NEG); NITRITE,URINE NEG (NEG)
[2017-05-27 21:47] LABS: URINE COLOR STRAW (YELLW/STRAW)
[2017-05-27 21:48] LABS: COMMENT (UR) CULT NOT INDICATED; CULTURE IF INDICATED CULT NOT INDICATED; RBC, URINE 0-2 /hpf (0-3); SQUAMOUS EPITHELIAL CELL URINE 0-5 /hpf (0-5); WBC, URINE 0-2 /hpf (0-5)
[2017-05-28] VITALS: BP 115/78; PULSE 65; RESP 16; TEMP 97.7; O2SAT 99
[2017-05-28] MEDS: MESALAMINE HD 800 MG DELAYED RELEASE TAB PO SCH ×3 (00:11→15:55)
[2017-05-28] MEDS: methylPREDNISolone SOD SUCC 40 MG/1 ML VIAL IV PUSH SCH ×2 (00:14→13:11)
[2017-05-28] MEDS: ONDANSETRON HCL 4 MG/2 ML VIAL IVP PRN ×2 (00:14→05:40)
[2017-05-28] MEDS: HYDROmorphone HCL PF 1 MG/ML VIAL IV PUSH PRN ×2 (01:52→05:41)
[2017-05-28] MEDS: metroNIDAZOLE 500 MG INJ 100 ML IV SCH ×3 (02:08→17:39)
[2017-05-28] MEDS: CIPROFLOXACIN 400 MG PREMIX 200 ML IV SCH ×2 (02:08→15:55)
[2017-05-28 04:00] VITALS: BP 115/73; PULSE 72; RESP 16; TEMP 98.1; O2SAT 99
[2017-05-28] MEDS: SODIUM CHLOR 0.9% 1000 ML INJ 1,000 ML IV SCH ×2 (05:01→13:16)
--- NOTE | 2017-05-28 06:40 | RADRPT ---
EXAM DATE/TIME: 05/28/2017 06:27 [facility] COMPARISON: No previous studies available for comparison. INDICATIONS : Patient complains of mild abdominal pain. Images done for colonic obstruction follow up. Severe left- sided colitis seen on CT one day ago. MEDICAL HISTORY : Ulcerative colitis. Crohn's disease. SURGICAL HISTORY : None. ENCOUNTER: Subsequent ACUITY: 2 days PAIN SCORE: 3/10 LOCATION: Abdomen FINDINGS: 2 AP supine views of abdomen and pelvis were obtained and demonstrate gas and stool noted segmentally within the colon. There are multiple loops of nondilated air-containing small bowel in the central a bdomen. There is no evidence of free air. The lung bases are clear. The bony structures are intact. CONCLUSION: Nonspecific, nonobstructive bowel gas pattern. Tacho Ball MD on May 28, 2017 at 6:37 Board Certified Radiologist. This report was verified electronically.
--- NOTE | 2017-05-28 06:54 | MB ---
cc: MT ERNST MD DATE OF CONSULTATION 05/28/2017 REASON FOR CONSULTATION Abdominal pain, bowel obstruction, inflammatory bowel disease. HISTORY OF PRESENT ILLNESS The patient is a 22-year-old male who states acute onset of abdominal pain. He states the pain started on the left side and started in the last 24 hours and continued to get extremely severe and progressed. The patient states the pain was initially a 09/10 and is currently 6/10 after IV pain medications. He states the pain is better with lying still, worse with movement. He came to the emergency department for further evaluation including CT scan showing a very thick left-sided colon with severe colitis and some appendiceal inflammation. He was admitted with IV pain control, IV fluids antibiotics and surgery was consulted. On my exam, the patient is resting a little bit more comfortably. He does state a long bout of irritable bowel disease. He states previous physicians are pretty confirmatory that this is ulcerative colitis in disease etiology. He has undergone previous colonoscopies in the past. He has had multiple bouts of this. He stated his ulcerative colitis started around 2007 and has been somewhat intermittent and progressive. He has again had several acute inflammatory exacerbations warranting hospitalization in the past. He was here a couple months ago with similar complaints. He has had difficulty with insurance and therefore has been intermittently compliant with treatment regimens and occasionally had some poor compliance with this. But nevertheless has had some acute exacerbations. He is inquiring about further discussion regarding surgical intervention and possible ileostomy, possible total colectomy. Currently he denies any blood in stools. He has not had any fevers and he does state constipation and obstruction. He attempted Milk of Magnesia for improvement in bowel habits without success. He has never had a workup to my knowledge of anal manometry and he denies any significant incontinence issues as well. PAST MEDICAL HISTORY 1. Ulcerative colitis 2. Inflammatory bowel disease PAST SURGICAL HISTORY 1. Incision drainage of buttock abscess 2. EGD and colonoscopies MEDICATIONS See EMR. ALLERGIES NO KNOWN DRUG ALLERGIES. FAMILY HISTORY Coronary disease, diabetes and cancer in the family. SOCIAL HISTORY Occasional ETOH, denies smoking or IVDA. REVIEW OF SYSTEMS GENERAL: Complains of abdominal pain. HEENT: Denies eye pain, ear pain. NECK: Denies swelling or pain. LUNGS: Denies cough or wheeze. HEART: Denies palpitation or chest pain. ABDOMEN: Complains of nausea and abdominal pain, constipation. : Denies dysuria, or hematuria. ENDOCRINE: Denies polyuria or polydipsia. NEUROLOGIC: Denies numbness or tingling. INTEGUMENT: Denies masses or lesions. PHYSICAL EXAMINATION GENERAL: The patient is in no acute distress. VITAL SIGNS: Temperature 97, pulse 74, respirations 16, blood pressure of 141/984, saturation 100%. HEENT: PERRLA, pupils equal round reactive. NECK: Supple. Trachea midline. LUNGS: Bilateral expansion clear. HEART: S1-S2 regular. ABDOMEN: Soft, positive tenderness to palpation, worse on left than right. No rebound or guarding. EXTREMITIES: Warm, well-perfused. INTEGUMENT: No cellulitis. PSYCH: Appropriate mood. Appropriate affect. LABORATORY AND DIAGNOSTIC DATA WBC 19.5 hemoglobin 11.2. Hematocrit 35.7, platelets 588. Sodium 137, potassium 2.8, chloride 101, BUN 11, creatinine 0.7, glucose 119, AST is 13, ALT 57, lipase 91, albumin 3.3. CT reviewed by myself showing severe left colitis, obstructive related to thickening and narrowing at the level of the proximal and descending colon, persistent inflammatory change of the appendix. ASSESSMENT The patient is a 22-year-old male with a history of ulcerative colitis since 2007. Multiple exacerbations currently with another acute flare-up. PLAN After a full clinical, radiologic and laboratory workup, the patient with the above-named issues including a longstanding ulcerative colitis. The patient again has had intermittent compliance with therapy and comes in with acute exacerbation. Currently we recommend IV hydration, pain control, antibiotics and steroid treatment and treatment regimen for ulcerative colitis acute flare. At this point, I have a low suspicion for acute appendicitis and needing an appendectomy. This is likely secondary to the chronic inflammatory process of the colon. Further, the patient is instructed with acute colonic inflammatory change. If the patient has significant nausea and vomiting, consider NG tube, however, he is not vomiting at this time. Further recommend a consultation with gastroenterology for further evaluation. Further, I will defer and discuss possible operative intervention with a colorectal surgeon for possible ileostomy and possible planning of total colectomy discussed this with the patient in detail, states understanding and agrees. MD MITRA Larios/ADELE /6:15 AM /6:45 AM
[2017-05-28 06:55] LABS: AUTOMATED NEUTROPHIL # 11.3 TH/MM3 (1.8-7.7); BASOPHIL # 0.1 TH/MM3 (0-0.2); BASOPHIL % 1.1 % (0.0-2.0); EOSINOPHIL % 0.1 % (0.0-4.0); HEMATOCRIT 37.7 % (39.0-51.0); LYMPH % 2.9 % (9.0-44.0); LYMPHOCYTE # 0.3 TH/MM3 (1.0-4.8); MEAN CELL VOLUME 68.7 FL (80.0-100.0); MEAN CORPUSCULAR HEMOGLOBIN 20.8 PG (27.0-34.0); MEAN CORPUSCULAR HGB CONC 30.2 % (32.0-36.0); MONO % 0.5 % (0.0-8.0); NEUT % 95.4 % (16.0-70.0); PLATELET COUNT 569 TH/MM3 (150-450); RED BLOOD COUNT 5.49 MIL/MM3 (4.50-5.90); RED CELL DISTRIBUTION WIDTH 24.3 % (11.6-17.2); WHITE BLOOD COUNT 11.8 TH/MM3 (4.0-11.0)
[2017-05-28 07:02] LABS: HEMO FLAGS AUTO DIFF
[2017-05-28 07:08] LABS: POTASSIUM 4.1 MEQ/L (3.5-5.1)
[2017-05-28 07:11] LABS: BICARBONATE 24.6 MEQ/L (21.0-32.0)
[2017-05-28 07:43] LABS: OVALOCYTES 1+ (NORMAL); SCAN/DIFF AUTO DIFF CONFIRMED
[2017-05-28 08:00] VITALS: BP 117/82; PULSE 82; RESP 14; TEMP 96.3; O2SAT 98
--- NOTE | 2017-05-28 08:30 | HHI.GIFU ---
Subjective Remarks Resting in bed. States his pain is controlled with Dilaudid. He had two "normal" bowel movements, one before the xray and one after the xray. No bleeding. No n/v. (Sharee Saavedra) Objective Vitals I&O Vital Signs Date Time Temp Pulse Resp B/P (MAP) Pulse Ox O2 Delivery O2 Flow Rate FiO2 05/28/17 04:00 98.1 72 16 115/73 (87) 99 05/28/17 02:28 18 05/28/17 00:00 97.7 65 16 115/78 (90) 99 05/27/17 20:00 98.1 65 16 112/74 (87) 98 05/27/17 14:34 98.4 72 20 118/73 (88) 98 05/27/17 12:00 97.5 62 16 104/64 (77) 99 I/O 05/27/17 05/27/17 05/27/17 05/28/17 05/28/17 05/28/17 07:00 15:00 23:00 07:00 15:00 23:00 Intake Total 2447 ml 1375 ml 995 ml Balance 2447 ml 1375 ml 995 ml Intake Oral 0 ml IV Total 2447 ml 1375 ml 995 ml # Voids 2 4 3 # Bowel Movements 0 1 Laboratory Laboratory Tests Test 05/27/17 21:28 05/28/17 06:43 Urine Color STRAW Urine Turbidity CLOUDY Urine pH 7.0 Urine Specific [place] 1.028 Urine Protein NEG Urine Glucose (UA) NEG Urine Ketones NEG Urine Occult Blood NEG Urine Nitrite NEG Urine Bilirubin NEG Urine Leukocyte Esterase NEG Urine RBC 0-2 Urine WBC 0-2 Urine Squamous Epithelial Cells 0-5 Urine Amorphous Sediment LARGE Urine Bacteria NONE Microscopic Urinalysis Comment CULT NOT INDICATED White Blood Count 11.8 Red Blood Count 5.49 Hemoglobin 11.4 Hematocrit 37.7 Mean Corpuscular Volume 68.7 Mean Corpuscular Hemoglobin 20.8 Mean Corpuscular Hemoglobin Concent 30.2 Red Cell Distribution Width 24.3 Platelet Count 569 Mean Platelet Volume 6.9 Neutrophils (%) (Auto) 95.4 Lymphocytes (%) (Auto) 2.9 Monocytes (%) (Auto) 0.5 Eosinophils (%) (Auto) 0.1 Basophils (%) (Auto) 1.1 Neutrophils # (Auto) 11.3 Lymphocytes # (Auto) 0.3 Monocytes # (Auto) 0.1 Eosinophils # (Auto) 0.0 Basophils # (Auto) 0.1 CBC Comment AUTO DIFF Differential Comment AUTO DIFF CONFIRMED Ovalocytes 1+ Blood Urea Nitrogen 11 Creatinine 0.80 Random Glucose 132 Calcium Level 8.6 Sodium Level 135 Potassium Level 4.1 Chloride Level 101 Carbon Dioxide Level 24.6 Anion Gap 9 Estimat Glomerular Filtration Rate 120 Imaging Last Impressions Abdomen X-Ray 05/28/17 0600 Signed Impressions: Service Date/Time: Sunday, May 28, 2017 06:27 - CONCLUSION: Nonspecific, nonobstructive bowel gas pattern. Tacho Ball MD Abdomen/Pelvis CT 05/27/17 0120 Signed Impressions: Service Date/Time: May 01:41 - CONCLUSION: Severe left-sided colitis. There is colonic obstruction related to wall thickening and luminal narrowing at the level of the proximal descending colon. Persistent inflammatory changes of the appendix. No abscess or perforation. Alejo Slater MD Physical Exam HEENT: Normocephalic; atraumatic; no jaundice. CHEST: CTA CARDIAC: RRR ABDOMEN: Soft, nondistended, mild tenderness; no hepatosplenomegaly; bowel sounds are present in all four quadrants. EXTREMITIES: No clubbing, cyanosis, or edema. SKIN: Normal; no rash; no jaundice. ENROLLER: No focal deficits; alert and oriented times three. (Sharee Saavedra) Assessment and Plan Plan ASSESSMENT: - Acute exacerbation of Ulcerative colitis. Dx in 2007. He was on Remicade in the past and did well on this, but has been off since 2014 secondary to lack of insurance. He was recently hospitalized for a flare and discharged home on Prednisone 40mg po daily and Asacol HD 1600mg po TID. Last colonoscopy (03/05/17) and this revealed 1. Terminal ileum is normal 2. Severe ulcerations deep with friable mucosa throughout the colon with significant amount of bleeding from the mucosa biopsies were done from the cecum and sigmoid. CT scan abdomen and pelvis (05/27/17)--> Severe left sided colitis. There is colonic obstruction related to wall thickening and luminal narrowing at the level of proximal descending colon. Persistent inflammatory changes of the appendix. No abscess or perforation. Solumedrol. Asacol HD. Consider biologics once his insurance goes through ( expected to have [facility] in July). Pt states he has had so many episodes and is considering a colectomy and would like to speak to CRS at some point. - PSBO. CT with colon obstruction related to wall thickening and luminal narrowing at the level of proximal descending colon. Also with some inflammatory changes of the appendix. Clinically, his abdomen is soft, nondistended, with tenderness. He reports no flatus today and no bm since Wednesday. On steroids, Abx. S/P GS evaluation. (+) 2 "normal" bm's. KUB (05/28/17)---> Nonspecific, nonobstructive bowel gas pattern. - Abnormal imaging with inflammatory changes of the appendix. S/P GS evaluation in past, likely reactive secondary to IBD - Anemia, microcytic, hypochromic. Stable. PLAN: - Clear liquids - Cont. Solumedrol - Cont. Asacol HD - Cont. Cipro/Flagyl - GS following. - Consider biologics once he obtains insurance (expected to have FHCP in July ) - Supportive care - Further recommendations to follow based on results of above - PT seen and examined by Dr. Cortes and myself and this note is written on his behalf (Sharee Saavedra) Physician Comments Improvement on steroids. Considering surgery. (Kyara Cortes MD) Sharee Saavedra May 28, 2017 08:30 Kyara Cortes MD May 28, 2017 14:16
[2017-05-28] MEDS ORDERED: PNEUMOCOCCAL POLYVALENT INJ 25 MCG/0.5 ML SYR IM ONE (09:00)
[2017-05-28] MEDS ORDERED: INFLUENZA VIRUS VACCINE (QUADRIVALENT) 0.5 ML SYR IM ONE (09:00)
[2017-05-28] MEDS: SODIUM CHLORIDE 0.9% FLUSH 10 ML FLUSH IV FLUSH SCH ×2 (09:00→21:00)
[2017-05-28] MEDS: PANTOPRAZOLE SOD 40 MG DELAYED RELEASE TAB PO SCH (09:11)
--- NOTE | 2017-05-28 11:11 | HHI.PR ---
Subjective Remarks Follow-up ulcerative colitis flareup 05/28/17-patient seen and examined, reports some improvement of abdominal pain. Had multiple bowel movements this a.m. Was seen by general surgery. Objective Vitals Vital Signs Date Time Temp Pulse Resp B/P (MAP) Pulse Ox O2 Delivery O2 Flow Rate FiO2 05/28/17 08:00 96.3 82 14 117/82 (94) 98 05/28/17 04:00 98.1 72 16 115/73 (87) 99 05/28/17 02:28 18 05/28/17 00:00 97.7 65 16 115/78 (90) 99 05/27/17 20:00 98.1 65 16 112/74 (87) 98 05/27/17 14:34 98.4 72 20 118/73 (88) 98 05/27/17 12:00 97.5 62 16 104/64 (77) 99 I/O 05/27/17 05/27/17 05/27/17 05/28/17 05/28/17 05/28/17 07:00 15:00 23:00 07:00 15:00 23:00 Intake Total 2447 ml 1375 ml 995 ml Balance 2447 ml 1375 ml 995 ml Intake Oral 0 ml IV Total 2447 ml 1375 ml 995 ml # Voids 2 4 3 # Bowel Movements 0 1 3 Result Diagram: 05/28/17 0643 05/28/17 0643 Imaging Last Impressions Abdomen X-Ray 05/28/17 0600 Signed Impressions: Service Date/Time: Sunday, May 28, 2017 06:27 - CONCLUSION: Nonspecific, nonobstructive bowel gas pattern. Tacho Ball MD Abdomen/Pelvis CT 05/27/17 0120 Signed Impressions: Service Date/Time: May 01:41 - CONCLUSION: Severe left-sided colitis. There is colonic obstruction related to wall thickening and luminal narrowing at the level of the proximal descending colon. Persistent inflammatory changes of the appendix. No abscess or perforation. Alejo Slater MD Objective Remarks GENERAL: NAD SKIN: Warm and dry. HEAD: Normocephalic. EYES: No scleral icterus. No injection or drainage. NECK: Supple, trachea midline. No JVD or lymphadenopathy. CARDIOVASCULAR: Regular rate and rhythm without murmurs, gallops, or rubs. RESPIRATORY: Breath sounds equal bilaterally. No accessory muscle use. GASTROINTESTINAL: Abdomen soft, mildly TTP, nondistended. MUSCULOSKELETAL: No cyanosis, or edema. BACK: Nontender without obvious deformity. No CVA tenderness. A/P Problem List: (1) Inflammatory bowel disease ICD Code: K52.9 - Noninfective gastroenteritis and colitis, unspecified (2) Exacerbation of ulcerative colitis ICD Code: K51.90 - Ulcerative colitis, unspecified, without complications Assessment and Plan 22-year-old man with Abdominal pain with colonic obstruction from severe colitis, secondary to ulcerative colitis Exacerbation of ulcerative colitis Continue steroids, mesalamine Continue Cipro, Flagyl Continue pain control Appreciate input from GI as well as general surgery Consider biologics when patients obtain insurance Awaiting from consideration from colorectal surgery for evaluation for possible ileostomy +/- total colectomy Leukocytosis Improving, continue with above treatment DVT prevention Sequential compression devices, low risk, early ambulation Gume Roman MD May 28, 2017 11:11
[2017-05-28 12:00] VITALS: BP 110/71; PULSE 61; RESP 14; TEMP 96; O2SAT 100
[2017-05-28 16:00] VITALS: BP 111/77; PULSE 71; RESP 14; TEMP 96.7; O2SAT 97
[2017-05-28 20:00] VITALS: BP 125/79; PULSE 102; RESP 17; TEMP 95.7; O2SAT 100
[2017-05-29] VITALS: BP 100/58; PULSE 76; RESP 20; TEMP 95.9; O2SAT 100
[2017-05-29] MEDS: methylPREDNISolone SOD SUCC 40 MG/1 ML VIAL IV PUSH SCH ×3 (00:01→23:56)
[2017-05-29] MEDS: MESALAMINE HD 800 MG DELAYED RELEASE TAB PO SCH ×4 (00:01→23:56)
[2017-05-29] MEDS: metroNIDAZOLE 500 MG INJ 100 ML IV SCH ×3 (00:02→17:17)
[2017-05-29] MEDS: CIPROFLOXACIN 400 MG PREMIX 200 ML IV SCH ×2 (04:28→17:17)
[2017-05-29 05:07] LABS: AUTOMATED NEUTROPHIL # 13.5 TH/MM3 (1.8-7.7); BASOPHIL # 0.1 TH/MM3 (0-0.2); BASOPHIL % 0.4 % (0.0-2.0); HEMATOCRIT 32.7 % (39.0-51.0); HEMO FLAGS DIFF FINAL; LYMPH % 3.1 % (9.0-44.0); LYMPHOCYTE # 0.4 TH/MM3 (1.0-4.8); MEAN CELL VOLUME 67.6 FL (80.0-100.0); MEAN CORPUSCULAR HEMOGLOBIN 21.5 PG (27.0-34.0); MEAN CORPUSCULAR HGB CONC 31.7 % (32.0-36.0); NEUT % 94.5 % (16.0-70.0); PLATELET COUNT 470 TH/MM3 (150-450); RED BLOOD COUNT 4.84 MIL/MM3 (4.50-5.90); RED CELL DISTRIBUTION WIDTH 24.4 % (11.6-17.2); WHITE BLOOD COUNT 14.3 TH/MM3 (4.0-11.0)
--- NOTE | 2017-05-29 06:11 | RADRPT ---
EXAM DATE/TIME: 05/29/2017 05:30 [facility] COMPARISON: ABDOMEN KUB ONLY, May 28, 2017, 6:27. INDICATIONS : Patient with Crohn's disease and severe left-sided colitis seen on CT. Patient has wall thickening an d inflammatory change with luminal narrowing. MEDICAL HISTORY : Crohn's disease. Ulcerative colitis. SURGICAL HISTORY : None. ENCOUNTER: Subsequent ACUITY: 2 days PAIN SCORE: 6/10 LOCATION: Bilateral Abdomen FINDINGS: AP supine views of the abdomen and pelvis were obtained and demonstrate an abnormal bowel gas pattern with wall thickening and luminal narrowing involving the descending colon. There are multiple loops of nondilated air-containing small bowel noted with no free air. The lung bases are clear. There is b esme structures are intact. CONCLUSION: The known left-sided colitis seen on CT is now visualized on the plain film secondary to air being present in portions of the descending colon with luminal narrowing and wall thickening. Tacho Ball MD on May 29, 2017 at 6:07 Board Certified Radiologist. This report was verified electronically.
[2017-05-29 08:00] VITALS: BP 108/66; PULSE 66; RESP 16; TEMP 96.1; O2SAT 98
--- NOTE | 2017-05-29 09:07 | HHI.PR ---
Subjective Remarks Exacerbation of IBD. ? Crohns. Pt resigned to some type of surgery. Obviously medical treatment is preferred if viable. Objective Vital Signs Date Time Temp Pulse Resp B/P (MAP) Pulse Ox O2 Delivery O2 Flow Rate FiO2 05/29/17 00:00 95.9 76 20 100/58 (72) 100 05/28/17 20:00 95.7 102 17 125/79 (94) 100 05/28/17 16:00 96.7 71 14 111/77 (88) 97 05/28/17 12:00 96.0 61 14 110/71 (84) 100 I/O 05/28/17 05/28/17 05/28/17 05/29/17 05/29/17 05/29/17 07:00 15:00 23:00 07:00 15:00 23:00 Intake Total 995 ml 754 ml 988 ml 1033 ml Output Total 0 ml Balance 995 ml 754 ml 988 ml 1033 ml Intake Oral 654 ml 300 ml 240 ml IV Total 995 ml 100 ml 688 ml 793 ml Output Urine Total 0 ml # Voids 3 8 # Bowel Movements 3 5 3 Result Diagram: 05/29/17 0430 05/28/17 0643 Objective Remarks VS-S Abd: flat,soft not much tenderness. Assessment and Plan Assessment and Plan Questionable Crohns colitis. AxR this AM nicely shows thickened left colon. If disease is localized to left and rectum is spared and felt to be crohns then left colectomy can be done. Various options exist depending on disease and nutritional state. Will need full review of all endoscopies,xrays and path reports. May need SB study if not previosly done. Alejo Hall MD May 29, 2017 09:07
--- NOTE | 2017-05-29 10:36 | HHI.PR ---
Subjective Remarks Pt feeling a bit better. states he would prefer to move forward w surgery. He states that starting in July he will be able to get medication as he will have insurance. has BMs. no nausea or vomiting at this time. Objective Vitals Vital Signs Date Time Temp Pulse Resp B/P (MAP) Pulse Ox O2 Delivery O2 Flow Rate FiO2 05/29/17 08:00 96.1 66 16 108/66 (80) 98 05/29/17 00:00 95.9 76 20 100/58 (72) 100 05/28/17 20:00 95.7 102 17 125/79 (94) 100 05/28/17 16:00 96.7 71 14 111/77 (88) 97 05/28/17 12:00 96.0 61 14 110/71 (84) 100 I/O 05/28/17 05/28/17 05/28/17 05/29/17 05/29/17 05/29/17 06:59 14:59 22:59 06:59 14:59 22:59 Intake Total 995 ml 754 ml 988 ml 1033 ml Output Total 0 ml Balance 995 ml 754 ml 988 ml 1033 ml Intake Oral 654 ml 300 ml 240 ml IV Total 995 ml 100 ml 688 ml 793 ml Output Urine Total 0 ml # Voids 3 8 # Bowel Movements 3 5 3 Result Diagram: 05/29/17 0430 05/28/17 0643 Imaging Last Impressions Abdomen X-Ray 05/29/17 0600 Signed Impressions: Service Date/Time: Monday, May 29, 2017 05:30 - CONCLUSION: The known left-sided colitis seen on CT is now visualized on the plain film secondary to air being present in portions of the descending colon with luminal narrowing and wall thickening. Tacho Ball MD Abdomen/Pelvis CT 05/27/17 0120 Signed Impressions: Service Date/Time: May 01:41 - CONCLUSION: Severe left-sided colitis. There is colonic obstruction related to wall thickening and luminal narrowing at the level of the proximal descending colon. Persistent inflammatory changes of the appendix. No abscess or perforation. Alejo Slater MD Objective Remarks GENERAL: NAD EYES: EOMI NECK: trachea midline. CARDIOVASCULAR: Regular rate and rhythm without murmurs RESPIRATORY: Breath sounds equal bilaterally. No accessory muscle use. GASTROINTESTINAL: Abdomen soft, some discomfort w deep palpation, nondistended. MUSCULOSKELETAL: No edema. moves extremities A/P Problem List: (1) Inflammatory bowel disease ICD Code: K52.9 - Noninfective gastroenteritis and colitis, unspecified (2) Exacerbation of ulcerative colitis ICD Code: K51.90 - Ulcerative colitis, unspecified, without complications Assessment and Plan 22-year-old man with Abdominal pain with colonic obstruction from severe colitis, secondary to ulcerative colitis Exacerbation of ulcerative colitis Continue steroids, mesalamine Continue Cipro, Flagyl Continue pain control Appreciate input from GI, GS and colorectal sx. May need biologics when patients obtain insurance Pt would like to move forward w surgery, colorectal surgeons evaluated the patient and per their note, surgeon will do a full review of all endoscopies, xrays and path reports. May need SB study if not previosly done. Leukocytosis continue with above treatment DVT prevention Sequential compression devices, low risk, early ambulation Discharge Planning d/c pending colorectal sx recs. also awaiting final recs from GI as well. Keira Coffey MD May 29, 2017 10:36
[2017-05-29] MEDS: PANTOPRAZOLE SOD 40 MG DELAYED RELEASE TAB PO SCH (10:38)
[2017-05-29] MEDS: SODIUM CHLOR 0.9% 1000 ML INJ 1,000 ML IV SCH ×2 (10:38→20:49)
[2017-05-29 12:00] VITALS: BP 108/65; PULSE 70; RESP 18; TEMP 96.4; O2SAT 100
[2017-05-29] MEDS: SODIUM CHLORIDE 0.9% FLUSH 10 ML FLUSH IV FLUSH SCH ×2 (13:53→20:49)
[2017-05-29 16:00] VITALS: BP 120/68; PULSE 84; RESP 16; TEMP 97.2; O2SAT 99
[2017-05-29 20:00] VITALS: BP 139/69; PULSE 92; RESP 19; TEMP 96.1; O2SAT 97
[2017-05-30] VITALS: BP_SYST 109; BP_SYST 141; BP_DIAS 70; BP_DIAS 91; PULSE 86; PULSE 91; RESP 17; RESP 20; TEMP 96.3; TEMP 97.3; O2SAT 96; O2SAT 99
[2017-05-30] MEDS: metroNIDAZOLE 500 MG INJ 100 ML IV SCH ×3 (02:55→17:36)
[2017-05-30] MEDS: SODIUM CHLOR 0.9% 1000 ML INJ 1,000 ML IV SCH ×2 (02:58→23:41)
[2017-05-30] MEDS: CIPROFLOXACIN 400 MG PREMIX 200 ML IV SCH ×2 (04:35→15:55)
[2017-05-30] MEDS: MESALAMINE HD 800 MG DELAYED RELEASE TAB PO SCH ×3 (07:34→22:57)
[2017-05-30] MEDS: PANTOPRAZOLE SOD 40 MG DELAYED RELEASE TAB PO SCH (07:35)
[2017-05-30] MEDS: SODIUM CHLORIDE 0.9% FLUSH 10 ML FLUSH IV FLUSH SCH ×2 (07:35→19:30)
[2017-05-30 07:49] LABS: INTERNATIONAL NORMALIZED RATIO 1.2 RATIO
[2017-05-30 07:58] LABS: AUTOMATED NEUTROPHIL # 8.7 TH/MM3 (1.8-7.7); BASOPHIL % 0.4 % (0.0-2.0); EOSINOPHIL # 0.1 TH/MM3 (0-0.4); HEMATOCRIT 34.3 % (39.0-51.0); HEMO FLAGS DIFF FINAL; LYMPH % 5.1 % (9.0-44.0); LYMPHOCYTE # 0.5 TH/MM3 (1.0-4.8); MEAN CELL VOLUME 68.4 FL (80.0-100.0); MEAN CORPUSCULAR HEMOGLOBIN 21.8 PG (27.0-34.0); MEAN CORPUSCULAR HGB CONC 31.9 % (32.0-36.0); MONO % 3.3 % (0.0-8.0); NEUT % 90.2 % (16.0-70.0); PLATELET COUNT 494 TH/MM3 (150-450); RED BLOOD COUNT 5.02 MIL/MM3 (4.50-5.90); RED CELL DISTRIBUTION WIDTH 24.9 % (11.6-17.2); WHITE BLOOD COUNT 9.6 TH/MM3 (4.0-11.0)
[2017-05-30 08:00] VITALS: BP 118/70; PULSE 67; RESP 18; TEMP 96; O2SAT 100
[2017-05-30 08:11] LABS: BICARBONATE 24.5 MEQ/L (21.0-32.0); POTASSIUM 3.7 MEQ/L (3.5-5.1)
--- NOTE | 2017-05-30 09:38 | HHI.PR ---
Subjective Remarks Exacerbation of IBD. ? Crohns. Pt resigned to some type of surgery sooner rather than later. Objective Vital Signs Date Time Temp Pulse Resp B/P (MAP) Pulse Ox O2 Delivery O2 Flow Rate FiO2 05/30/17 08:00 96.0 67 18 118/70 (86) 100 05/30/17 00:00 96.3 86 20 109/70 (83) 96 05/29/17 20:00 96.1 92 19 139/69 (92) 97 05/29/17 16:00 97.2 84 16 120/68 (85) 99 05/29/17 12:00 96.4 70 18 108/65 (79) 100 I/O 05/29/17 05/29/17 05/29/17 05/30/17 05/30/17 05/30/17 07:00 15:00 23:00 07:00 15:00 23:00 Intake Total 1033 ml 2040 ml 240 ml Balance 1033 ml 2040 ml 240 ml Intake Oral 240 ml 2040 ml 240 ml IV Total 793 ml # Voids 8 1 # Bowel Movements 3 5 1 Result Diagram: 05/30/1725 05/30/17624 Objective Remarks VS-S Abd: flat,soft not much tenderness. Assessment and Plan Assessment and Plan Probable Crohns colitis. If disease is localized to left and rectum is spared and felt to be crohns then left colectomy can be done. Various options exist depending on disease and nutritional state. Will need full review of all endoscopies,xrays and path reports. May need SB study if not previously done. Pt would prefer surgery sooner. Feels he is not able to maintain medically at present. Dr Lucas will review and explain all options tomorrow. Alejo Hall MD May 30, 2017 09:38
[2017-05-30 12:00] VITALS: BP 130/77; PULSE 96; RESP 17; TEMP 97; O2SAT 100
--- NOTE | 2017-05-30 12:01 | HHI.GIFU ---
GI Follow-up Note Consult Follow-up Subjective: Patient laying in bed comfortably, no new complaints except lower abdominal pain Objective: PHYSICAL EXAMINATION: Vitals signs stable No fever HEENT: Pupils round and reactive to light; normocephalic; atraumatic; no jaundice. Throat is clear. NECK: Neck is supple, no JVD, no lymphadenopathy. CHEST: Chest is clear to auscultation and percussion. CARDIAC: Regular rate and rhythm with no murmur gallop or rubs. ABDOMEN: Soft, nondistended, nontender; no hepatosplenomegaly; bowel sounds are present in all four quadrants. EXTREMITIES: No clubbing, cyanosis, or edema. SKIN: Normal; no rash; no jaundice. DEFLASH AND WASH OPERATOR: No focal deficits; alert and oriented times three. Available Data (labs, X- Rays, Procedues) : Last Impressions Abdomen X-Ray 05/29/17 0600 Signed Impressions: Service Date/Time: Monday, May 29, 2017 05:30 - CONCLUSION: The known left-sided colitis seen on CT is now visualized on the plain film secondary to air being present in portions of the descending colon with luminal narrowing and wall thickening. Tacho Ball MD Abdomen/Pelvis CT 05/27/17 0120 Signed Impressions: Service Date/Time: May 01:41 - CONCLUSION: Severe left-sided colitis. There is colonic obstruction related to wall thickening and luminal narrowing at the level of the proximal descending colon. Persistent inflammatory changes of the appendix. No abscess or perforation. Alejo Slater MD Laboratory Tests Test 05/29/17 04:30 05/30/17 06:25 White Blood Count 14.3 TH/MM3 9.6 TH/MM3 Red Blood Count 4.84 MIL/MM3 5.02 MIL/MM3 Hemoglobin 10.4 GM/DL 10.9 GM/DL Hematocrit 32.7 % 34.3 % Mean Corpuscular Volume 67.6 FL 68.4 FL Mean Corpuscular Hemoglobin 21.5 PG 21.8 PG Mean Corpuscular Hemoglobin Concent 31.7 % 31.9 % Red Cell Distribution Width 24.4 % 24.9 % Platelet Count 470 TH/MM3 494 TH/MM3 Mean Platelet Volume 7.0 FL 7.3 FL Neutrophils (%) (Auto) 94.5 % 90.2 % Lymphocytes (%) (Auto) 3.1 % 5.1 % Monocytes (%) (Auto) 2.0 % 3.3 % Eosinophils (%) (Auto) 0.0 % 1.0 % Basophils (%) (Auto) 0.4 % 0.4 % Neutrophils # (Auto) 13.5 TH/MM3 8.7 TH/MM3 Lymphocytes # (Auto) 0.4 TH/MM3 0.5 TH/MM3 Monocytes # (Auto) 0.3 TH/MM3 0.3 TH/MM3 Eosinophils # (Auto) 0.0 TH/MM3 0.1 TH/MM3 Basophils # (Auto) 0.1 TH/MM3 0.0 TH/MM3 CBC Comment DIFF FINAL DIFF FINAL Differential Comment Prothrombin Time 13.0 SEC Prothromb Time International Ratio 1.2 RATIO Blood Urea Nitrogen 9 MG/DL Creatinine 0.67 MG/DL Random Glucose 116 MG/DL Calcium Level 8.7 MG/DL Sodium Level 137 MEQ/L Potassium Level 3.7 MEQ/L Chloride Level 103 MEQ/L Carbon Dioxide Level 24.5 MEQ/L Anion Gap 10 MEQ/L Estimat Glomerular Filtration Rate 147 ML/MIN Allergies Coded Allergies Type Severity Reaction Last Updated Verified No Known Allergies Allergy Unknown 05/26/17 Yes Active Scripts Medications Dose Route/Sig Max Daily Dose Days Date Category Dose Instructions Prednisone 10 Mg Tab 10 Mg PO DIRECTED 05/16/17 Rx 4 tablets daily for 2 weeks, then 3 tablets daily for 2 weeks, then 2 tablets daily for 2 weeks, then 1 tablet daily for 2 weeks, then 1/2 tablet daily for 2 weeks Mesalamine (Mesalamine) 800 Mg Tab 1,600 Mg PO Q8H 30 05/16/17 Rx ASSESSMENT/PLAN: Seen and examined, doing better clinically. Waiting to see Dr. Lucas tomorrow to make a decision regarding surgery. SBFT ordered. On IV solumederol. It was a pleasure seeing Ricardo Hoover. Thank you for this consult. Entered by: Kyara Varela MD May 30, 2017 12:01
[2017-05-30] MEDS: methylPREDNISolone SOD SUCC 40 MG/1 ML VIAL IV PUSH SCH (12:29)
[2017-05-30] MEDS ORDERED: MAGNESIUM CITRATE SOLN 300 ML BTL PO ONE ×2 (13:15→18:00)
--- NOTE | 2017-05-30 13:54 | HHI.PR ---
Subjective Remarks Pt seen around noon. Complains of pain mainly after having BMs. No nausea or vomiting. Awaiting final recs from Dr. Lucas. Would like to proceed w sx Objective Vitals Vital Signs Date Time Temp Pulse Resp B/P (MAP) Pulse Ox O2 Delivery O2 Flow Rate FiO2 05/30/17 12:00 97.0 96 17 130/77 (94) 100 05/30/17 08:00 96.0 67 18 118/70 (86) 100 05/30/17 00:00 96.3 86 20 109/70 (83) 96 05/29/17 20:00 96.1 92 19 139/69 (92) 97 05/29/17 16:00 97.2 84 16 120/68 (85) 99 I/O 05/29/17 05/29/17 05/29/17 05/30/17 05/30/17 05/30/17 07:00 15:00 23:00 07:00 15:00 23:00 Intake Total 1033 ml 2040 ml 240 ml Balance 1033 ml 2040 ml 240 ml Intake Oral 240 ml 2040 ml 240 ml IV Total 793 ml # Voids 8 1 # Bowel Movements 3 5 1 Result Diagram: 05/30/1762405/30/17624 Imaging Last Impressions Abdomen X-Ray 05/29/17 06 Signed Impressions: Service Date/Time: Monday, May 29, 2017 05:30 - CONCLUSION: The known left-sided colitis seen on CT is now visualized on the plain film secondary to air being present in portions of the descending colon with luminal narrowing and wall thickening. Tacho Ball MD Abdomen/Pelvis CT 05/27/17 0120 Signed Impressions: Service Date/Time: May 01:41 - CONCLUSION: Severe left-sided colitis. There is colonic obstruction related to wall thickening and luminal narrowing at the level of the proximal descending colon. Persistent inflammatory changes of the appendix. No abscess or perforation. Alejo Slater MD Objective Remarks GENERAL: NAD EYES: EOMI NECK: trachea midline. CARDIOVASCULAR: Regular rate and rhythm without murmurs RESPIRATORY: Breath sounds equal bilaterally. No accessory muscle use. GASTROINTESTINAL: Abdomen soft, some discomfort w deep palpation, nondistended. MUSCULOSKELETAL: No edema. moves extremities A/P Problem List: (1) Inflammatory bowel disease ICD Code: K52.9 - Noninfective gastroenteritis and colitis, unspecified (2) Exacerbation of ulcerative colitis ICD Code: K51.90 - Ulcerative colitis, unspecified, without complications Assessment and Plan 22-year-old man with Abdominal pain with colonic obstruction from severe colitis, secondary to ulcerative colitis Exacerbation of ulcerative colitis Continue steroids, mesalamine Continue Cipro, Flagyl Continue pain control Appreciate input from GI, GS and colorectal sx. May need biologics when patients obtain insurance GI ordered small bowel follow through Pt would like to move forward w surgery, colorectal surgeons evaluated the patient and per their note, surgeon will do a full review of all endoscopies, xrays and path reports. Dr. Lucas will make final recs tomorrow. Leukocytosis continue with above treatment DVT prevention Sequential compression devices, low risk, early ambulation Discharge Planning d/c pending colorectal sx recs. GI ordered small bowel follow through Keira Coffey MD May 30, 2017 13:54
[2017-05-30 16:00] VITALS: BP 119/78; PULSE 97; RESP 18; TEMP 97.4; O2SAT 99
[2017-05-30] MEDS: BISACODYL EC 5 MG TABEC PO SCH ×2 (17:36→19:29)
[2017-05-30 20:00] VITALS: BP 130/74; PULSE 66; RESP 18; TEMP 96.2; O2SAT 100
[2017-05-30] MEDS: HYDROmorphone HCL PF 1 MG/ML VIAL IV PUSH PRN (22:58)
[2017-05-31] VITALS: BP 115/77; PULSE 71; RESP 18; TEMP 95.9; O2SAT 100
[2017-05-31] MEDS: metroNIDAZOLE 500 MG INJ 100 ML IV SCH ×2 (02:33→10:00)
[2017-05-31] MEDS: methylPREDNISolone SOD SUCC 40 MG/1 ML VIAL IV PUSH SCH ×3 (02:33→23:09)
[2017-05-31] MEDS: CIPROFLOXACIN 400 MG PREMIX 200 ML IV SCH ×2 (05:10→16:00)
[2017-05-31 08:00] VITALS: BP 113/76; PULSE 73; RESP 18; TEMP 96.5; O2SAT 99
[2017-05-31] MEDS: MESALAMINE HD 800 MG DELAYED RELEASE TAB PO SCH ×3 (08:00→23:08)
[2017-05-31] MEDS: PANTOPRAZOLE SOD 40 MG DELAYED RELEASE TAB PO SCH (09:00)
[2017-05-31] MEDS: SODIUM CHLORIDE 0.9% FLUSH 10 ML FLUSH IV FLUSH SCH ×2 (10:01→23:09)
--- NOTE | 2017-05-31 10:25 | RADRPT ---
EXAM DATE/TIME: 05/31/2017 09:04 [facility] COMPARISON: CT ABDOMEN & PELVIS W CONTRAST, May 27, 2017, 1:41. ABDOMEN KUB ONLY, May 28, 2017, 6:27. INDICATIONS : Abdominal Pain MEDICAL HISTORY : Crohn's disease. Ulcerative colitis. SURGICAL HISTORY : None. ENCOUNTER: Subsequent ACUITY: 3 days PAIN SCORE: 6/10 LOCATION: Bilateral Abdomen FINDINGS: Supine view of the abdomen was performed. The abdominal bowel gas pattern is normal. No abnormal ma sses, calcifications, or organomegaly is seen. The osseous structures are unremarkable. CONCLUSION: Negative Derick Prasad MD FACR on May 31, 2017 at 10:20 Board Certified Radiologist. This report was verified electronically.
--- NOTE | 2017-05-31 11:26 | HHI.GIFU ---
Subjective Remarks resting in the bed, awake, answers questions appropriately abd pain , lt sided chiefly controlled except to light palpation. afebrile Objective Vitals I&O Vital Signs Date Time Temp Pulse Resp B/P (MAP) Pulse Ox O2 Delivery O2 Flow Rate FiO2 05/31/17 08:00 96.5 73 18 113/76 (88) 99 05/31/17 00:00 95.9 71 18 115/77 (90) 100 05/30/17 23:28 20 05/30/17 20:00 96.2 66 18 130/74 (92) 100 05/30/17 16:00 97.4 97 18 119/78 (92) 99 05/30/17 12:00 97.0 96 17 130/77 (94) 100 I/O 05/30/17 05/30/17 05/30/17 05/31/17 05/31/17 05/31/17 07:00 15:00 23:00 07:00 15:00 23:00 Intake Total 240 ml 1620 ml 240 ml Balance 240 ml 1620 ml 240 ml Intake Oral 240 ml 720 ml 240 ml IV Total 900 ml # Voids 1 3 2 # Bowel Movements 1 8 Laboratory Administered Medications Medications (Trade) Dose Ordered Sig/Genoveva Route PRN Reason Start Time Stop Time Status Last Admin Dose Admin Sodium Chloride 1,000 ml @ 75 mls/hr [id number] IV 05/27/17 02:21 05/30/17 23:41 Sodium Chloride (NS Flush) 2 ml BID IV FLUSH 05/27/17 09:00 05/31/17 10:01 Ondansetron HCl (Zofran Inj) 4 mg Q6H PRN IVP NAUSEA OR VOMITING 05/27/17 02:30 05/28/17 05:40 Hydromorphone HCl (Dilaudid Pf Inj) 1 mg Q4H PRN IV PUSH Pain 6-10 05/27/17 02:30 05/30/17 22:58 Ciprofloxacin/ Dextrose 200 ml @ 200 mls/hr Q12H IV 05/27/17 04:00 05/31/17 05:10 Metronidazole 100 ml @ 100 mls/hr Q8H IV 05/27/17 02:30 05/31/17 10:00 Pantoprazole Sodium (Protonix) 40 mg DAILY PO 05/27/17 09:00 05/30/17 07:35 Mesalamine (Asacol Hd Dr) 1,600 mg Q8H PO 05/27/17 08:00 05/30/17 22:57 Methylprednisolone Sodium Succinate (SoluMEDROL INJ) 40 mg Q12H IV PUSH 05/27/17 13:00 05/31/17 02:33 Imaging Last Impressions Abdomen X-Ray 05/29/17 0600 Signed Impressions: Service Date/Time: Monday, May 29, 2017 05:30 - CONCLUSION: The known left-sided colitis seen on CT is now visualized on the plain film secondary to air being present in portions of the descending colon with luminal narrowing and wall thickening. Tacho Ball MD Abdomen/Pelvis CT 05/27/17 0120 Signed Impressions: Service Date/Time: May 01:41 - CONCLUSION: Severe left-sided colitis. There is colonic obstruction related to wall thickening and luminal narrowing at the level of the proximal descending colon. Persistent inflammatory changes of the appendix. No abscess or perforation. Alejo Slater MD Physical Exam HEENT: Normocephalic; atraumatic; no jaundice. thin stature CHEST: CTA CARDIAC: RRR ABDOMEN: Soft, nondistended, mild tenderness lt. sided to light palpation; bowel sounds are present in all four quadrants. EXTREMITIES: No clubbing, cyanosis, or edema. SKIN: Normal; no rash; no jaundice.,pale KENO ATTENDANT: No focal deficits; alert and oriented times three., good historian Assessment and Plan Plan ASSESSMENT: - Acute exacerbation of Ulcerative colitis. Dx in 2007. He was on Remicade in the past and did well on this, but has been off since 2014 secondary to lack of insurance. He was recently hospitalized for a flare and discharged home on Prednisone 40mg po daily and Asacol HD 1600mg po TID. Last colonoscopy (03/05/17) and this revealed 1. Terminal ileum is normal 2. Severe ulcerations deep with friable mucosa throughout the colon with significant amount of bleeding from the mucosa biopsies were done from the cecum and sigmoid. CT scan abdomen and pelvis (05/27/17)--> Severe left sided colitis. There is colonic obstruction related to wall thickening and luminal narrowing at the level of proximal descending colon. Persistent inflammatory changes of the appendix. No abscess or perforation. Solumedrol. Asacol HD. Consider biologics once his insurance goes through ( expected to have FHCP in July). Pt states he has had so many episodes and is considering a colectomy. Dr Lucas following, plan for colonoscopy with CRS in am. Currently abd pain and symptoms more controled with current medical management. - PSBO. CT with colon obstruction related to wall thickening and luminal narrowing at the level of proximal descending colon. Also with some inflammatory changes of the appendix. Clinically, his abdomen is soft, nondistended, with tenderness. On steroids, Abx. S/P GS evaluation. (+) 2 "normal" bm's. KUB (05/28/17)---> Nonspecific, nonobstructive bowel gas pattern. BM X 8 on 05/30, BM X 1 so far 05/31 _Abd xrays, SB planned for today, but canceled for now per Dr. Lucas. Plan for colonoscopy for tomorrow. - Anemia, microcytic, hypochromic. Stable.10.[address] 9.6 PLAN: -Diet per CRS - Cont. Solumedrol - Cont. Asacol HD - Cont. Cipro/Flagyl - GS following. - CRS following; plan for colonscopy in am. Patient considering colectomy. - Options: Consider biologics once he obtains insurance (expected to have FHCP in July) if no surgery. - Supportive care - Further recommendations to follow based on results of above - PT seen and examined by Dr. Callahan and myself and this note is written on his behalf Janee Prather May 31, 2017 11:26
--- NOTE | 2017-05-31 11:32 | HHI.PR ---
Subjective Remarks no abd pain , no blood in stool today Objective Vitals Vital Signs Date Time Temp Pulse Resp B/P (MAP) Pulse Ox O2 Delivery O2 Flow Rate FiO2 05/31/17 08:00 96.5 73 18 113/76 (88) 99 05/31/17 00:00 95.9 71 18 115/77 (90) 100 05/30/17 23:28 20 05/30/17 20:00 96.2 66 18 130/74 (92) 100 05/30/17 16:00 97.4 97 18 119/78 (92) 99 05/30/17 12:00 97.0 96 17 130/77 (94) 100 I/O 05/30/17 05/30/17 05/30/17 05/31/17 05/31/17 05/31/17 07:00 15:00 23:00 07:00 15:00 23:00 Intake Total 240 ml 1620 ml 240 ml Balance 240 ml 1620 ml 240 ml Intake Oral 240 ml 720 ml 240 ml IV Total 900 ml # Voids 1 3 2 # Bowel Movements 1 8 Result Diagram: 05/30/1762405/30/17624 Objective Remarks GENERAL: This is a well-nourished, well-developed patient, in no apparent distress. CARDIOVASCULAR: Regular rate and rhythm without murmurs, gallops, or rubs. RESPIRATORY: Clear to auscultation. Breath sounds equal bilaterally. No wheezes , rales, or rhonchi. GASTROINTESTINAL: Abdomen soft, mild discomfort to palpation, nondistended. Normal active bowel sounds MUSCULOSKELETAL: Extremities without clubbing, cyanosis, or edema. NEURO: Alert & Oriented x4 to person, place, time, situation. Moves all ext x4 A/P Problem List: (1) Inflammatory bowel disease ICD Code: K52.9 - Noninfective gastroenteritis and colitis, unspecified (2) Exacerbation of ulcerative colitis ICD Code: K51.90 - Ulcerative colitis, unspecified, without complications Assessment and Plan 22-year-old man with Abdominal pain with colonic obstruction from severe colitis, secondary to ulcerative colitis Exacerbation of ulcerative colitis Continue steroids, mesalamine Continue Cipro, Flagyl Continue pain control Appreciate input from GI, GS and colorectal sx. May need biologics when patients obtain insurance GI ordered small bowel follow through Pt would like to move forward w surgery, colorectal surgeons evaluated the patient and per their note, surgeon will do a full review of all endoscopies, xrays and path reports. Dr. Lucas will make final recs tomorrow. Leukocytosis continue with above treatment DVT prevention Sequential compression devices, low risk, early ambulation Discharge Planning AWAITING INPUT FROM Yevgeniy Winkler MD May 31, 2017 11:32
[2017-05-31 12:00] VITALS: BP 130/83; PULSE 56; RESP 18; TEMP 96.8; O2SAT 96
[2017-05-31] MEDS: SODIUM CHLOR 0.9% 1000 ML INJ 1,000 ML IV SCH (13:01)
[2017-05-31 16:00] VITALS: BP 124/84; PULSE 72; RESP 18; TEMP 97.2; O2SAT 100
[2017-05-31] MEDS ORDERED: DO NOT ADM ANY ANTICOAGULANT DRUGS PRN (17:40)
[2017-05-31 20:00] VITALS: BP 128/84; PULSE 67; RESP 18; TEMP 96.6; O2SAT 100
--- NOTE | 2017-05-31 22:36 | MR ---
cc: CATHERINE MONZON M.D. DATE 05/31/2017 PREOPERATIVE DIAGNOSIS Crohn disease, possible ulcerative colitis, abnormal CT scan. PROCEDURE Colonoscopy to cecum. POSTOPERATIVE DIAGNOSES 1. Severe colitis of the rectum and rectosigmoid left colon. 2. Moderate to severe colitis of the transverse and right colon. SURGEON Dr. Monzon PROCEDURE The patient was placed in the left lateral decubitus position. Rectal exam confirmed scarring and thickening of the rectal mucosa with some of anal narrowing. Olympus colonoscope was then introduced into the rectum and advanced easily under direct vision through the proximal colon into the area of the cecum. In the area were inflammatory changes in the cecum and right colon of moderate nature and very nonspecific. Maybe some pseudopolyps were noted as well. The inflammatory process became more intense in the descending colon and the sigmoid colon but no evidence of obstruction was noted. Inflammatory polyps were also seen. Some linear ulcerations were also present. Distal rectosigmoid was also mild to moderately inflamed with nonspecific changes. Anal canal was quite scarred and there was a defect in the posterior midline consistent with his previous fistulotomy. The patient tolerated the procedure quite well and was brought to recovery room in stable condition. MD ISAIAH Arredondo/JAZMIN /10:05 PM /10:23 PM
[2017-06-01] VITALS: BP 114/66; PULSE 68; RESP 18; TEMP 96.7; O2SAT 99
[2017-06-01] MEDS: SODIUM CHLOR 0.9% 1000 ML INJ 1,000 ML IV SCH (02:21)
[2017-06-01 04:00] VITALS: BP 111/77; PULSE 60; RESP 20; TEMP 96.3; O2SAT 100
[2017-06-01 08:37] VITALS: BP 118/78; PULSE 76; RESP 16; TEMP 96.9; O2SAT 100
[2017-06-01] MEDS: SODIUM CHLORIDE 0.9% FLUSH 10 ML FLUSH IV FLUSH SCH ×2 (09:00→20:56)
[2017-06-01] MEDS: CIPROFLOXACIN 400 MG PREMIX 200 ML IV SCH ×2 (09:46→20:56)
[2017-06-01] MEDS: metroNIDAZOLE 500 MG INJ 100 ML IV SCH ×2 (09:47→16:58)
[2017-06-01] MEDS: MESALAMINE HD 800 MG DELAYED RELEASE TAB PO SCH ×3 (09:54→23:20)
[2017-06-01] MEDS: PANTOPRAZOLE SOD 40 MG DELAYED RELEASE TAB PO SCH (09:54)
[2017-06-01 12:09] VITALS: BP 115/80; PULSE 85; RESP 16; TEMP 96.3; O2SAT 100
[2017-06-01] MEDS: methylPREDNISolone SOD SUCC 40 MG/1 ML VIAL IV PUSH SCH ×2 (12:23→23:20)
--- NOTE | 2017-06-01 13:51 | HHI.PR ---
Subjective Remarks Follow up on a 22-year-old who has a PMH of Crohn's disease admitted for abdominal pain with severe colitis, and colonic obstruction. Patient reports that he had his colonoscopy done yesterday, but did not speak to the GI doctor after the procedure. He still has some discomfort on his left lower abdomen as well and the right, but tells me this is less painful today. He is eating without difficulties, no nausea, vomiting, diarrhea, constipation or blood in stool, passing gas. He denies fever or chills. Patient tells me that he has already mentally prepared for a ileostomy or colostomy in case he may need one. Objective Vitals Vital Signs Date Time Temp Pulse Resp B/P (MAP) Pulse Ox O2 Delivery O2 Flow Rate FiO2 06/01/17 12:09 96.3 85 16 115/80 (92) 100 06/01/17 08:37 96.9 76 16 118/78 (91) 100 06/01/17 04:00 96.3 60 20 111/77 (88) 100 06/01/17 00:00 96.7 68 18 114/66 (82) 99 05/31/17 20:00 96.6 67 18 128/84 (99) 100 05/31/17 17:40 98.1 67 18 106/68 (81) 99 05/31/17 16:00 97.2 72 18 124/84 (97) 100 I/O 05/31/17 05/31/17 05/31/17 06/01/17 06/01/17 06/01/17 07:00 15:00 23:00 07:00 15:00 23:00 Intake Total 240 ml 580 ml Balance 240 ml 580 ml Intake Oral 240 ml 480 ml Other 100 ml # Voids 2 6 2 # Bowel Movements 1 0 Result Diagram: 05/30/17 0625 05/30/17 0625 Imaging Last Impressions Abdomen X-Ray 05/31/17 0000 Signed Impressions: Service Date/Time: Wednesday, May 31, 2017 09:04 - CONCLUSION: Negative Derick Prasad MD FACR Abdomen/Pelvis CT 05/27/17 0120 Signed Impressions: Service Date/Time: May 01:41 - CONCLUSION: Severe left-sided colitis. There is colonic obstruction related to wall thickening and luminal narrowing at the level of the proximal descending colon. Persistent inflammatory changes of the appendix. No abscess or perforation. Alejo Slater MD Objective Remarks GENERAL: Well-developed, well-nourished, in no acute distress. alert and orientated NECK: Supple without any masses. CARDIAC: Regular rhythm, regular rate, S1, S2 LUNGS: Clear to auscultation bilaterally. No wheeze, rhonchi or rales. ABDOMEN: Soft, no tenderness to palpation. Bowel sounds heard in all 4 quadrants. Negative guarding. EXTREMITIES: No edema, pulses are equal bilaterally. No cyanosis or clubbing NEUROLOGY: Mood and affect appear appropriate. Moves upper and lower extremities spontaneously. A/P Problem List: (1) Inflammatory bowel disease ICD Code: K52.9 - Noninfective gastroenteritis and colitis, unspecified (2) Exacerbation of ulcerative colitis ICD Code: K51.90 - Ulcerative colitis, unspecified, without complications Assessment and Plan 22-year-old who has a PMH of Crohn's disease admitted for abdominal pain with severe colitis, and colonic obstruction. Abdominal pain with colonic obstruction from severe colitis, secondary to Crohn' s disease - Continue steroids, mesalamine - Continue Cipro, Flagyl, consider switching to PO tomorrow if okay from colorectal standpoint - Continue pain control with Dilaudid as needed. - Patient underwent colonoscopy on 05/31 which revealed severe colitis of the rectum and rectosigmoid left colon, moderate to severe colitis of the transverse and right colon, no evidence of obstruction. - Recommendations per colorectal surgery regarding possible surgical intervention. Possibly in the future once inflammation subsides. - On full liquid diet and tolerating, DC IV fluids Leukocytosis - Could be secondary to infection VS steroid use. - On Cipro and Flagyl DVT prevention Sequential compression devices, low risk, early ambulation Wilman Schwartz Jun 01, 2017 13:51
--- NOTE | 2017-06-01 14:46 | HHI.GIFU ---
Subjective Remarks sitting up in bed, awake, Mild random cramping lt. upper and lower quadrants and RLQ afebrile Objective Vitals I&O Vital Signs Date Time Temp Pulse Resp B/P (MAP) Pulse Ox O2 Delivery O2 Flow Rate FiO2 06/01/17 12:09 96.3 85 16 115/80 (92) 100 06/01/17 08:37 96.9 76 16 118/78 (91) 100 06/01/17 04:00 96.3 60 20 111/77 (88) 100 06/01/17 00:00 96.7 68 18 114/66 (82) 99 05/31/17 20:00 96.6 67 18 128/84 (99) 100 05/31/17 17:40 98.1 67 18 106/68 (81) 99 05/31/17 16:00 97.2 72 18 124/84 (97) 100 I/O 05/31/17 05/31/17 05/31/17 06/01/17 06/01/17 06/01/17 07:00 15:00 23:00 07:00 15:00 23:00 Intake Total 240 ml 580 ml Balance 240 ml 580 ml Intake Oral 240 ml 480 ml Other 100 ml # Voids 2 6 2 # Bowel Movements 1 0 Laboratory Laboratory Tests Test 05/30/17 06:25 White Blood Count 9.6 TH/MM3 Red Blood Count 5.02 MIL/MM3 Hemoglobin 10.9 GM/DL Hematocrit 34.3 % Mean Corpuscular Volume 68.4 FL Mean Corpuscular Hemoglobin 21.8 PG Mean Corpuscular Hemoglobin Concent 31.9 % Red Cell Distribution Width 24.9 % Platelet Count 494 TH/MM3 Mean Platelet Volume 7.3 FL Neutrophils (%) (Auto) 90.2 % Lymphocytes (%) (Auto) 5.1 % Monocytes (%) (Auto) 3.3 % Eosinophils (%) (Auto) 1.0 % Basophils (%) (Auto) 0.4 % Neutrophils # (Auto) 8.7 TH/MM3 Lymphocytes # (Auto) 0.5 TH/MM3 Monocytes # (Auto) 0.3 TH/MM3 Eosinophils # (Auto) 0.1 TH/MM3 Basophils # (Auto) 0.0 TH/MM3 CBC Comment DIFF FINAL Differential Comment Prothrombin Time 13.0 SEC Prothromb Time International Ratio 1.2 RATIO Blood Urea Nitrogen 9 MG/DL Creatinine 0.67 MG/DL Random Glucose 116 MG/DL Calcium Level 8.7 MG/DL Sodium Level 137 MEQ/L Potassium Level 3.7 MEQ/L Chloride Level 103 MEQ/L Carbon Dioxide Level 24.5 MEQ/L Anion Gap 10 MEQ/L Estimat Glomerular Filtration Rate 147 ML/MIN Imaging Last Impressions Abdomen X-Ray 05/31/17 0000 Signed Impressions: Service Date/Time: Wednesday, May 31, 2017 09:04 - CONCLUSION: Negative Derick Prasad MD FACR Abdomen/Pelvis CT 05/27/17 0120 Signed Impressions: Service Date/Time: May 01:41 - CONCLUSION: Severe left-sided colitis. There is colonic obstruction related to wall thickening and luminal narrowing at the level of the proximal descending colon. Persistent inflammatory changes of the appendix. No abscess or perforation. Alejo Slater MD Physical Exam HEENT: Normocephalic; atraumatic; no jaundice. thin stature CHEST: clear without rales or rhonchi CARDIAC: RRR ABDOMEN: Soft, nondistended, mild tenderness lt. sided to light palpation; and RLQ. bowel sounds are present in all four quadrants. EXTREMITIES: No clubbing, cyanosis, or edema. SKIN: Normal; no rash; no jaundice.,pale SURFBOARD MAKER: No focal deficits; alert and oriented times three., good historian Assessment and Plan Plan ASSESSMENT: - Acute exacerbation of Ulcerative colitis. Dx in 2007. He was on Remicade in the past and did well on this, but has been off since 2014 secondary to lack of insurance. He was recently hospitalized for a flare and discharged home on Prednisone 40mg po daily and Asacol HD 1600mg po TID. Last colonoscopy (03/05/17) and this revealed 1. Terminal ileum is normal 2. Severe ulcerations deep with friable mucosa throughout the colon with significant amount of bleeding from the mucosa biopsies were done from the cecum and sigmoid. CT scan abdomen and pelvis (05/27/17)--> Severe left sided colitis. There is colonic obstruction related to wall thickening and luminal narrowing at the level of proximal descending colon. Persistent inflammatory changes of the appendix. No abscess or perforation. Solumedrol. Asacol HD. Consider biologics once his insurance goes through ( expected to have CP in July). Pt states he has had so many episodes and is considering a colectomy. Dr Lucas following, plan for colonoscopy with CRS in am. Currently abd pain and symptoms more controled with current medical management. - PSBO. CT with colon obstruction related to wall thickening and luminal narrowing at the level of proximal descending colon. Also with some inflammatory changes of the appendix. Clinically, his abdomen is soft, nondistended, with tenderness. On steroids, Abx. S/P GS evaluation. (+) 2 "normal" bm's. KUB (05/28/17)---> Nonspecific, nonobstructive bowel gas pattern. BM X 8 on 05/30, BM X 1 so far 05/31 _Abd xrays, SB planned for today, but canceled for now per Dr. Lucas. Colonoscopy 05/31, showed rectal scarring , inflammatory changes in cecum and rt. colon. Increased inflammation in descending and sigmoid colon. Also has some linear ulcerations. - Anemia, microcytic, hypochromic. No [id number] bleeding noted PLAN: -Diet per CRS - Cont. Solumedrol - Cont. Asacol HD - Cont. Cipro/Flagyl - GS following. - CRS following; Monitoring surgical needs when medically stable. Patient considering colectomy. - Options: Consider biologics once he obtains insurance (expected to have FHCP in July) if no surgery. - Supportive care - Further recommendations to follow based on results of above - PT seen and examined by Dr. Callahan and myself and this note is written on his behalf Janee Prather Jun 01, 2017 14:46
[2017-06-01 16:37] VITALS: BP 125/69; PULSE 101; RESP 16; TEMP 96.3; O2SAT 100
[2017-06-01] MEDS ORDERED: MAGNESIUM CITRATE SOLN 300 ML BTL PO ONE (19:30)
--- NOTE | 2017-06-01 19:42 | PD.WCN.NOT ---
Wound Consult Description: Consult placed for Stoma marking ileostomy per Dr Lucas Communicated with: Patient Additional Information: Patient was marked on lower left and right sides of abdomen for possible ileostomy after assessing patient abdomen for creases, umbilicus, and rectus muscles. Patient stood, sat, and laid down for assessment. Appliance was used to help with marking and teaching. Hilaria Sandy [facility] Jun 01, 2017 19:41
[2017-06-01 22:06] VITALS: BP 128/80; PULSE 78; RESP 20; TEMP 96.1; O2SAT 100
--- NOTE | 2017-06-01 23:35 | HHI.PR ---
Subjective Remarks C/R Surg afebrile, VSS uri colon uri PO liq Objective - Vital Signs Date Time Temp Pulse Resp B/P (MAP) Pulse Ox O2 Delivery O2 Flow Rate FiO2 06/01/17 22:06 96.1 78 20 128/80 (96) 100 Result Diagram: 05/30/1762405/30/17624 Objective Remarks PE alert Abd - soft, some tenderness llq, min tympany A/P Assessment and Plan Imp: discussed at lenght with pt, he has gotten some better with high dose steroids In past, he did well on steroids, but got worse again after dc home, and stopping steroids reviewed either cont med management, vs surgery- risks/benefits reviewed - pt set on proceeding with surgery to help decr need for meds. will set-up surgery for tomorrow Anthony Lucas MD Jun 01, 2017 23:35
[2017-06-02] VITALS (9 sets, daily range): BP systolic 115–139; BP diastolic 72–95; PULSE 77–93; RESP 16–20; TEMP 95.5–98.4; O2SAT 99–100
[2017-06-02] MEDS: metroNIDAZOLE 500 MG INJ 100 ML IV SCH ×3 (03:27→18:42)
[2017-06-02 06:16] LABS: AUTOMATED NEUTROPHIL # 7.8 TH/MM3 (1.8-7.7); HEMATOCRIT 41.3 % (39.0-51.0); LYMPH % 6.4 % (9.0-44.0); LYMPHOCYTE # 0.5 TH/MM3 (1.0-4.8); MEAN CELL VOLUME 69.2 FL (80.0-100.0); MEAN CORPUSCULAR HEMOGLOBIN 21.7 PG (27.0-34.0); MEAN CORPUSCULAR HGB CONC 31.3 % (32.0-36.0); NEUT % 90.6 % (16.0-70.0); PLATELET COUNT 537 TH/MM3 (150-450); RED BLOOD COUNT 5.97 MIL/MM3 (4.50-5.90); RED CELL DISTRIBUTION WIDTH 25.6 % (11.6-17.2); WHITE BLOOD COUNT 8.6 TH/MM3 (4.0-11.0)
[2017-06-02 06:23] LABS: HEMO FLAGS AUTO DIFF
[2017-06-02 06:40] LABS: ALT (GPT) 18 U/L (12-78); ANION GAP 6 MEQ/L (5-15); AST (GOT) LESS THAN 3 U/L (15-37); BICARBONATE 30.5 MEQ/L (21.0-32.0); BLOOD UREA NITROGEN 12 MG/DL (7-18); CHLORIDE 100 MEQ/L (98-107); GLOMERULAR FILTRATION RATE 129 ML/MIN (>89); POTASSIUM 3.9 MEQ/L (3.5-5.1); SODIUM (NA) 136 MEQ/L (136-145)
[2017-06-02 06:42] LABS: ALKALINE PHOSPHATASE 83 U/L (45-117); TOTAL BILIRUBIN ADULT 0.6 MG/DL (0.2-1.0)
[2017-06-02] MEDS: MESALAMINE HD 800 MG DELAYED RELEASE TAB PO SCH ×2 (08:25→16:00)
[2017-06-02] MEDS: PANTOPRAZOLE SOD 40 MG DELAYED RELEASE TAB PO SCH (08:25)
[2017-06-02] MEDS: SODIUM CHLORIDE 0.9% FLUSH 10 ML FLUSH IV FLUSH SCH ×2 (08:26→21:00)
[2017-06-02] MEDS: CIPROFLOXACIN 400 MG PREMIX 200 ML IV SCH ×2 (08:26→20:51)
[2017-06-02 08:52] LABS: OVALOCYTES 1+ (NORMAL); PLATELET ESTIMATE SMEAR HIGH (NORMAL); PLATELET MORPHOLOGY NORMAL (NORMAL); SCAN/DIFF AUTO DIFF CONFIRMED
--- NOTE | 2017-06-02 11:53 | HHI.PR ---
Subjective Remarks Follow up of Crohn's flare with severe colitis. Patient underwent colonoscopy yesterday. Sates that he is still having some abdominal cramping which is worse when he is moving bowels. No reports of blood in stool, orang stool but thinks this may be related to food. Denies any nausea, vomiting, fever or chills. He tells me he is calm about going into surgery at 3 this afternoon. Is happy that he will not have to constantly worry about when he has to go to the bathroom and if he has a colostomy or ileostomy this will be taken care of. He will also have insurance in July and is happy about this because it is something he will be able to afford. Objective Vitals Vital Signs Date Time Temp Pulse Resp B/P (MAP) Pulse Ox O2 Delivery O2 Flow Rate FiO2 06/02/17 10:10 99 06/02/17 08:00 95.5 77 17 117/75 (89) 99 06/02/17 01:49 97.0 79 20 128/86 (100) 100 06/01/17 22:06 96.1 78 20 128/80 (96) 100 06/01/17 16:37 96.3 101 16 125/69 (87) 100 06/01/17 12:09 96.3 85 16 115/80 (92) 100 I/O 06/01/17 06/01/17 06/01/17 06/02/17 06/02/17 06/02/17 07:00 15:00 23:00 07:00 15:00 23:00 Intake Total 300 ml 920 ml 580 ml 200 ml Balance 300 ml 920 ml 580 ml 200 ml Intake Oral 720 ml 480 ml IV Total 300 ml 200 ml 100 ml 200 ml # Voids 2 2 # Bowel Movements 0 Result Diagram: 06/02/17 0445 06/02/17 0445 Imaging Last Impressions Abdomen X-Ray 05/31/17 0000 Signed Impressions: Service Date/Time: Wednesday, May 31, 2017 09:04 - CONCLUSION: Negative Derick Prasad MD FACR Abdomen/Pelvis CT 05/27/17 0120 Signed Impressions: Service Date/Time: May 01:41 - CONCLUSION: Severe left-sided colitis. There is colonic obstruction related to wall thickening and luminal narrowing at the level of the proximal descending colon. Persistent inflammatory changes of the appendix. No abscess or perforation. Alejo Slater MD Objective Remarks GENERAL: Well-developed, well-nourished, in no acute distress. alert and orientated NECK: Supple without any masses. CARDIAC: Regular rhythm, regular rate, S1, S2 LUNGS: Clear to auscultation bilaterally. No wheeze, rhonchi or rales. ABDOMEN: Soft, no tenderness to palpation. Bowel sounds heard in all 4 quadrants. Negative guarding. EXTREMITIES: No edema, pulses are equal bilaterally. No cyanosis or clubbing NEUROLOGY: Mood and affect appear appropriate. Moves upper and lower extremities spontaneously. A/P Problem List: (1) Inflammatory bowel disease ICD Code: K52.9 - Noninfective gastroenteritis and colitis, unspecified (2) Exacerbation of ulcerative colitis ICD Code: K51.90 - Ulcerative colitis, unspecified, without complications Assessment and Plan 22-year-old who has a PMH of Crohn's disease admitted for abdominal pain with severe colitis, and colonic obstruction. Abdominal pain with colonic obstruction from severe colitis, secondary to Crohn' s disease - Continue steroids, mesalamine - Continue Cipro and Flagyl - Continue pain control with Dilaudid as needed. - Patient underwent colonoscopy on 05/31 which revealed severe colitis of the rectum and rectosigmoid left colon, moderate to severe colitis of the transverse and right colon, no evidence of obstruction. - Plans for exploratory laparotomy, colectomy, possible ileostomy today at 3pm by Dr. Lucas. - NPO Leukocytosis - Could be secondary to infection VS steroid use. - On Cipro and Flagyl, WBC continues to trend down. DVT prevention Sequential compression devices, low risk, early ambulation May need PT eval after surgery. Wilman Schwartz [facility] Jun 02, 2017 11:53
[2017-06-02] MEDS ORDERED: LACTATED RINGER'S 1000 ML INJ 1,000 ML IV ONE (12:00)
[2017-06-02] MEDS ORDERED: GLYCOPYRROLATE 1 MG/5 ML SYRINGE IV PUSH ONE (12:00)
[2017-06-02] MEDS ORDERED: DEXAMETHASONE SOD PHOS 4 MG/ML VIAL IV ONE (12:00)
[2017-06-02] MEDS ORDERED: MIDAZOLAM HCL 2 MG/2 ML VIAL IV ONE (12:00)
[2017-06-02] MEDS ORDERED: NORMOSOL R INJ 3,000 ML IV ONE (12:00)
[2017-06-02] MEDS ORDERED: LIDOCAINE HCL 1% PF 5 ML SYRINGE OTHER ONE (12:00)
[2017-06-02] MEDS ORDERED: PHENYLEPH/NS 1000 MCG/10 ML SYR IV ONE (12:00)
[2017-06-02] MEDS ORDERED: PROPOFOL 200 MG/20 ML AMP IV ONE (12:00)
[2017-06-02] MEDS ORDERED: ONDANSETRON HCL 4 MG/2 ML VIAL IV PUSH ONE (12:00)
[2017-06-02] MEDS ORDERED: KETOROLAC TROMETHAMINE 30 MG/ML (IVP) VIAL IV PUSH ONE (12:00)
[2017-06-02] MEDS ORDERED: ROCURONIUM INJ 50 MG/5 ML SYRINGE IV PUSH ONE (12:00)
[2017-06-02] MEDS ORDERED: NEOSTIGMINE 3 MG/3 ML SYR IV ONE (12:00)
[2017-06-02] MEDS: methylPREDNISolone SOD SUCC 40 MG/1 ML VIAL IV PUSH SCH (12:34)
--- NOTE | 2017-06-02 15:36 | PD.WCN.NOT ---
Wound Consult Description: Consult placed for Stoma marking, ileostomy, per Dr Lucas on 06/01/17 @ 7000 Additional Information: Attempted to see patient today. Patient off unit. Patient was previously marked late Wednesday06/01/17 for possible ileostomy. Hilaria Sandy Jun 02, 2017 15:36
[2017-06-02] MEDS ORDERED: ACETAMINOPHEN 1000 MG/100 ML 100 ML IV ONE (16:18)
[2017-06-02] MEDS ORDERED: HYDROmorphone HCL PF 2 MG/ML VIAL ONE (16:19)
--- NOTE | 2017-06-02 18:46 | PD.OP ---
Operative Report Date of Surgery: Jun 02, 2017 Preoperative Diagnosis: (1) Crohn disease Postoperative Diagnosis: (1) Crohn disease Procedure: Cystoscopy and placement of bilateral ureteral catheters Anesthesia: General Surgeon: Michael Lim Restaurant Maintenance Technician(s): None Operation and Findings: Indication for urologic procedures: Consult intraoperatively to pass bilateral ureteral catheters to aid in visualization of this patient's ureters during his colorectal procedure. Urologic procedures in detail: Concurrent with the colorectal surgeons, I proceeded with cystoscopy and placement of bilateral ureteral catheters as follows. Initially, cystoscopic evaluation was performed utilizing the rigid cystoscope with the 20 Bur[place]ian sheath and 30 lens. The urethra was patent without stricture formation, the prostate was nonobstructing and further passes of the cystoscope within the bladder demonstrated both right and left ureteral orifices to be in correct anatomic position effluxing clear yellow urine. There were no bladder mucosal lesions, calculi diverticula formation. There was no tumor formation or fistula formation noted. I then proceeded with passing a sensor 0.035 wire up the patient's left ureter until some resistance was met. A 6 Bur[place]ian open-ended ureteral catheter was then advanced over this wire 25 cm in a cephalad direction. Once the catheter was in place, the wire was withdrawn and reintroduced to a secondary side via the cystoscope. In similar fashion the contralateral side was accomplished. With both catheters in place, the cystoscope and wire were withdrawn and a 16 [place]ian 10 cc Morales catheter was placed. Both ureteral catheters were anchored to the Morales catheter by a connector and all 3 catheters then placed to gravity drainage. This completes urologic surgery portion of combined procedures on this patient. Michael Lim MD Jun 02, 2017 18:46
[2017-06-02] MEDS ORDERED: DO NOT ADM ANY ANTICOAGULANT DRUGS PRN (19:43)
[2017-06-02] MEDS ORDERED: NALOXONE HCL 0.4 MG/ML AMP IV PUSH PRN (19:45)
[2017-06-02] MEDS ORDERED: *morphine SULFATE 8 MG/ML PERIprocedure ONLY ONE (19:47)
[2017-06-02] MEDS ORDERED: *HYDROmorphone PF 1 MG VIAL PERIprocedural Use ONLY ONE (19:49)
[2017-06-02] MEDS: HYDROmorphone HCL PF 1 MG/ML VIAL IV PUSH PRN (20:03)
[2017-06-02] MEDS: LACTATED RINGER'S 1000 ML IV PRN (20:13)
[2017-06-02] MEDS: HYDROmorphone HCL PCA 6 MG/30 ML IV SCH (20:37)
[2017-06-02] MEDS: PCA - TOTAL MG DILAUDID DELIVERED PER SHIFT OTHER SCH (22:00)
[2017-06-03] VITALS (23 sets, daily range): BP systolic 122–137; BP diastolic 76–83; PULSE 69–110; RESP 16–18; TEMP 96.8–98.6; O2SAT 96–99
[2017-06-03] MEDS ORDERED: methylPREDNISolone SOD SUCC 40 MG/1 ML VIAL IV PUSH SCH (01:00)
[2017-06-03] MEDS: LACTATED RINGER'S 1000 ML IV PRN ×2 (01:23→16:00)
[2017-06-03] MEDS: metroNIDAZOLE 500 MG INJ 100 ML IV SCH ×3 (01:24→17:47)
[2017-06-03] MEDS: HYDROmorphone HCL PCA 6 MG/30 ML IV SCH ×2 (02:52→13:36)
[2017-06-03] MEDS: PCA - TOTAL MG DILAUDID DELIVERED PER SHIFT OTHER SCH ×3 (06:00→20:37)
[2017-06-03] MEDS: PANTOPRAZOLE SOD 40 MG DELAYED RELEASE TAB PO SCH (08:00)
[2017-06-03] MEDS: SODIUM CHLORIDE 0.9% FLUSH 10 ML FLUSH IV FLUSH SCH ×2 (08:01→20:37)
[2017-06-03 08:32] LABS: AUTOMATED NEUTROPHIL # 18.7 TH/MM3 (1.8-7.7); BASOPHIL % 0.1 % (0.0-2.0); HEMATOCRIT 32.8 % (39.0-51.0); LYMPH % 2.5 % (9.0-44.0); LYMPHOCYTE # 0.5 TH/MM3 (1.0-4.8); MEAN CELL VOLUME 69.3 FL (80.0-100.0); MEAN CORPUSCULAR HEMOGLOBIN 21.7 PG (27.0-34.0); MEAN CORPUSCULAR HGB CONC 31.3 % (32.0-36.0); MONO % 5.7 % (0.0-8.0); NEUT % 91.7 % (16.0-70.0); PLATELET COUNT 423 TH/MM3 (150-450); RED BLOOD COUNT 4.74 MIL/MM3 (4.50-5.90); RED CELL DISTRIBUTION WIDTH 26.1 % (11.6-17.2); WHITE BLOOD COUNT 20.3 TH/MM3 (4.0-11.0)
[2017-06-03 08:42] LABS: HEMO FLAGS AUTO DIFF
--- NOTE | 2017-06-03 09:03 | HHI.PR ---
Subjective Remarks C/R Surg POD #1 afebrile, VSS UO good - stent dc'd stoma pink Objective - Vital Signs Date Time Temp Pulse Resp B/P (MAP) Pulse Ox O2 Delivery O2 Flow Rate FiO2 06/03/17 07:01 74 06/03/17 06:10 98 Nasal Cannula 1.00 06/03/17 06:00 16 06/03/17 03:00 97.9 137/79 (98) Result Diagram: 06/03/17 0651 06/02/17 0445 Objective Remarks PE alert Abd - soft, some tenderness llq, min tympany, wound dry A/P Assessment and Plan Imp: stable post-op OOB decr IVF tx to floor Anthony Lucas MD Jun 03, 2017 09:03
[2017-06-03 09:10] LABS: ALKALINE PHOSPHATASE 54 U/L (45-117); ALT (GPT) 10 U/L (12-78); ANION GAP 6 MEQ/L (5-15); AST (GOT) 5 U/L (15-37); BICARBONATE 29.1 MEQ/L (21.0-32.0); BLOOD UREA NITROGEN 17 MG/DL (7-18); CHLORIDE 103 MEQ/L (98-107); GLOMERULAR FILTRATION RATE 116 ML/MIN (>89); POTASSIUM 3.9 MEQ/L (3.5-5.1); SODIUM (NA) 138 MEQ/L (136-145); TOTAL BILIRUBIN ADULT 0.7 MG/DL (0.2-1.0)
[2017-06-03 09:23] LABS: ACANTHOCYTES OCC (NORMAL); OVALOCYTES 1+ (NORMAL); PLATELET ESTIMATE SMEAR HIGH (NORMAL); PLATELET MORPHOLOGY NORMAL (NORMAL); SCAN/DIFF AUTO DIFF CONFIRMED
[2017-06-03] MEDS: CIPROFLOXACIN 400 MG PREMIX 200 ML IV SCH ×2 (10:05→20:36)
[2017-06-03] MEDS: HEPARIN SODIUM - SQ 10,000 UNITS/ML VIAL SQ SCH ×2 (10:06→20:37)
--- NOTE | 2017-06-03 10:11 | PD.WCN.NOT ---
Wound Consult Description: Follow up POD#1 ileostomy. Communicated with: Dr Roman Patient Recommendation: Read the information booklet to reinforce teaching Observe staff opening, emptying, and closing pouch Additional Information: Patient seen on [facility] for ileostomy assessment and teaching. Ostomy Type: Ileostomy Surgeon: Anthony Lucas MD Date of Surgery: Jun 02, 2017 Complete: Education materials Educated patient on: Stoma size and appearance When stoma will begin to function Where the lumen is located Barrier and pouch function Additional information Patient seen [facility] [place] for ileostomy assessment and teaching. Patient was being assessed by Dr Roman when entering patient room. Patient states being full of many emotions at this time. Patient is alert and oriented with stated occasional pain for which he is currently using his INSPECTOR FI[employer]AR[employer] pump. Educational materials were reviewed with patient at bedside. Diet, chewing food well, drinking plenty of fluids, exercise once cleared by physician, hobbies, medications, basic anatomy and function of the intestines. Stoma was visualized by sports book writer and not by the patient at this time. Stoma is red, round, moist, moderately protruding, measuring 1 1/4", lumen noted at 3 o'clock and not functioning at this time. Mucocutaneous junction is not visualized at this time due to intact barrier with foam adhesives surrounding appliance. Patient was encouraged to rest as his eyes were becoming heavy. Plans to follow up with patient tomorrow morning on 06/04/17 for further teaching and assessment. Educational materials left at bedside. Hilaria Sandy [facility] Jun 03, 2017 10:11
--- NOTE | 2017-06-03 10:54 | HHI.PR ---
Subjective Remarks Follow up of Crohn's flare with severe colitis. 06/03/17-patient seen and examined, he is status post ileostomy 06/02/17. He Is also status post Cystoscopy and placement of bilateral ureteral catheters. Pain control. Currently afebrile Objective Vitals Vital Signs Date Time Temp Pulse Resp B/P (MAP) Pulse Ox O2 Delivery O2 Flow Rate FiO2 06/03/17 08:01 98.3 86 18 136/79 (98) 96 06/03/17 07:01 74 06/03/17 06:10 98 Nasal Cannula 1.00 06/03/17 06:00 89 06/03/17 06:00 16 06/03/17 05:00 96 06/03/17 04:00 82 06/03/17 03:00 97.9 83 16 137/79 (98) 99 06/03/17 03:00 80 06/03/17 02:52 16 06/03/17 02:00 97 06/03/17 01:00 84 06/03/17 00:00 99 06/02/17 23:30 98.3 83 16 128/95 (106) 100 06/02/17 23:00 80 06/02/17 22:10 16 06/02/17 22:00 82 06/02/17 22:00 16 06/02/17 21:00 98.4 88 16 137/90 (106) 100 06/02/17 21:00 88 06/02/17 21:00 16 06/02/17 20:37 18 06/02/17 19:40 97.6 84 14 118/77 (91) 100 Nasal Cannula 4 06/02/17 16:00 96.5 93 17 139/88 (105) 100 06/02/17 12:00 96.1 87 17 115/72 (86) 99 I/O 06/02/17 06/02/17 06/02/17 06/03/17 06/03/17 06/03/17 07:00 15:00 23:00 07:00 15:00 23:00 Intake Total 580 ml 300 ml 2702.4 ml 2158.3 ml Output Total 950 ml 640 ml Balance 580 ml 300 ml 1752.4 ml 1518.3 ml Intake Oral 480 ml 240 ml IV Total 100 ml 300 ml 202.4 ml 1918.3 ml Other 2500 ml Output Urine Total 700 ml 475 ml Stool Total 0 ml Drainage Total 50 ml 165 ml Estimated Blood Loss 200 ml # Voids 2 Result Diagram: 06/03/17 0651 06/03/17 0651 Imaging Last Impressions Abdomen X-Ray 05/31/17 0000 Signed Impressions: Service Date/Time: Wednesday, May 31, 2017 09:04 - CONCLUSION: Negative Derick Prasad MD FACR Abdomen/Pelvis CT 05/27/17 0120 Signed Impressions: Service Date/Time: May 01:41 - CONCLUSION: Severe left-sided colitis. There is colonic obstruction related to wall thickening and luminal narrowing at the level of the proximal descending colon. Persistent inflammatory changes of the appendix. No abscess or perforation. Alejo Slater MD Objective Remarks GENERAL: NAD SKIN: Warm and dry. HEAD: Normocephalic. EYES: No scleral icterus. No injection or drainage. NECK: Supple, trachea midline. No JVD or lymphadenopathy. CARDIOVASCULAR: Regular rate and rhythm without murmurs, gallops, or rubs. RESPIRATORY: Breath sounds equal bilaterally. No accessory muscle use. GASTROINTESTINAL: Abdomen soft, ileostomy bag in place; tympanic bowel sounds MUSCULOSKELETAL: No cyanosis, or edema. BACK: Nontender without obvious deformity. No CVA tenderness. Procedures Status post ileostomy 06/02/17 Status post Cystoscopy and placement of bilateral ureteral catheters 06/02/17 A/P Problem List: (1) Inflammatory bowel disease ICD Code: K52.9 - Noninfective gastroenteritis and colitis, unspecified (2) Exacerbation of ulcerative colitis ICD Code: K51.90 - Ulcerative colitis, unspecified, without complications Assessment and Plan 22-year-old man with Abdominal pain with colonic obstruction from severe colitis, secondary to ulcerative colitis Exacerbation of ulcerative colitis Status post ileostomy 06/02/17 and management per colorectal surgery Patient is also Status post Cystoscopy and placement of bilateral ureteral catheters 06/02/17 Continue with IV Flagyl and Cipro, Solu-Medrol 20 mg every 12 hours Appreciate input from her ileostomy wound care nurse Continue with nothing by mouth diet DVT prevention Sequential compression devices, low risk, early ambulation Gume Roman MD Jun 03, 2017 10:54
[2017-06-03] MEDS: methylPREDNISolone SOD SUCC 40 MG/1 ML VIAL IV PUSH SCH (13:31)
[2017-06-04] VITALS (10 sets, daily range): BP systolic 109–135; BP diastolic 62–77; PULSE 68–86; RESP 16–18; TEMP 96–97.8; O2SAT 96–100
[2017-06-04] MEDS: methylPREDNISolone SOD SUCC 40 MG/1 ML VIAL IV PUSH SCH ×2 (01:58→13:50)
[2017-06-04] MEDS: metroNIDAZOLE 500 MG INJ 100 ML IV SCH ×3 (01:58→17:53)
[2017-06-04] MEDS: PCA - TOTAL MG DILAUDID DELIVERED PER SHIFT OTHER SCH ×3 (06:00→21:33)
[2017-06-04] MEDS: HYDROmorphone HCL PCA 6 MG/30 ML IV SCH (07:30)
[2017-06-04] MEDS: CIPROFLOXACIN 400 MG PREMIX 200 ML IV SCH ×2 (09:38→21:32)
[2017-06-04] MEDS: PANTOPRAZOLE SOD 40 MG DELAYED RELEASE TAB PO SCH (09:38)
[2017-06-04] MEDS: SODIUM CHLORIDE 0.9% FLUSH 10 ML FLUSH IV FLUSH SCH ×2 (09:38→21:00)
[2017-06-04] MEDS: HEPARIN SODIUM - SQ 10,000 UNITS/ML VIAL SQ SCH ×2 (09:38→21:00)
--- NOTE | 2017-06-04 11:53 | HHI.PR ---
Subjective Remarks Follow-up visit severe colitis, status post ileostomy, urethral stent placement / removal. Patient seen and examined today. Reports he is doing better compared to yesterday. States that yesterday he attempted to get out of bed and standing up he felt cold and clammy, and able to stand up. He continues to feel weak. States that his back is bothering him. He states that he was able to get out of bed with assistance sitting up in a chair. Continues to have pain but states his pain is different, not cramping anymore, managed by KENNEL ASSISTANT medication. Denies nausea, vomiting. States that he has discomfort with a Morales catheter but understands that he needs to keep it until his urine output clears up as per urology. Compliant with all treatment and care. Denies chest pain, palpitations. Denies fevers, chills. Objective Vitals Vital Signs Date Time Temp Pulse Resp B/P (MAP) Pulse Ox O2 Delivery O2 Flow Rate FiO2 06/04/17 10:04 96 06/04/17 08:00 16 06/04/17 07:30 18 06/04/17 06:00 18 06/04/17 04:00 96.0 86 18 122/74 (90) 97 06/04/17 00:00 96.5 68 18 122/77 (92) 97 06/03/17 20:56 97 21 06/03/17 20:37 20 06/03/17 20:00 96.8 69 18 122/76 (91) 97 06/03/17 16:30 97.4 98 17 124/83 (97) 98 06/03/17 15:01 18 06/03/17 15:01 98.6 83 18 128/81 (97) 98 06/03/17 15:00 102 06/03/17 14:00 76 06/03/17 13:36 18 06/03/17 13:00 86 06/03/17 12:00 110 I/O 06/03/17 06/03/17 06/03/17 06/04/17 06/04/17 06/04/17 07:00 15:00 23:00 07:00 15:00 23:00 Intake Total 2158.3 ml 198 ml 580 ml 0 ml Output Total 640 ml 525 ml 960 ml Balance 1518.3 ml 198 ml 55 ml -960 ml Intake Oral 240 ml 480 ml 0 ml IV Total 1918.3 ml 198 ml 100 ml Output Urine Total 475 ml 450 ml 850 ml Stool Total 0 ml Drainage Total 165 ml 75 ml 110 ml # Bowel Movements 0 Result Diagram: 06/03/17 0651 06/03/17 0651 Imaging Last Impressions Abdomen X-Ray 05/31/17 0000 Signed Impressions: Service Date/Time: Wednesday, May 31, 2017 09:04 - CONCLUSION: Negative Derick Prasad MD FACR Abdomen/Pelvis CT 05/27/17 0120 Signed Impressions: Service Date/Time: May 01:41 - CONCLUSION: Severe left-sided colitis. There is colonic obstruction related to wall thickening and luminal narrowing at the level of the proximal descending colon. Persistent inflammatory changes of the appendix. No abscess or perforation. Alejo Slater MD Objective Remarks GENERAL: This is a well-nourished, well-developed patient, in no apparent distress. SKIN: Warm and dry. Pale. HEENT: Normocephalic. Pupils equal round and reactive. Nose without bleeding. Airway patent. NECK: Trachea midline. No JVD. Supple. CARDIOVASCULAR: Regular rate and rhythm without murmurs, gallops, or rubs. RESPIRATORY: Clear to auscultation. Breath sounds equal bilaterally. No wheezes , rales, or rhonchi. GASTROINTESTINAL: Abdomen soft. Tender to light palpation. Bowel sounds hypoactive. Midabdominal incision with desi clear dry and intact. Ileostomy right quadrant stoma pink and producing liquid stools small amount. RAFAEL drain with large amount serous sanguinous fluid. : Morales catheter draining maroon-colored urine. MUSCULOSKELETAL: Extremities without clubbing, cyanosis, or edema. NEUROLOGICAL: Awake and alert. Oriented to time, place, person. No focal neuro deficit. Moves all extremities. Normal speech. Procedures Status post ileostomy 06/02/17 Status post Cystoscopy and placement of bilateral ureteral catheters 06/02/17 A/P Problem List: (1) Inflammatory bowel disease ICD Code: K52.9 - Noninfective gastroenteritis and colitis, unspecified (2) Exacerbation of ulcerative colitis ICD Code: K51.90 - Ulcerative colitis, unspecified, without complications Assessment and Plan 22-year-old who has a PMH of Crohn's disease admitted for abdominal pain with severe colitis, and colonic obstruction. Status post ileostomy secondary to severe colitis secondary to Crohn's disease Colonic obstruction from severe colitis - Status post ileostomy 06/02/17 managed by colorectal surgery. - Patient also had cystoscopy with placement of bilateral ureteral catheters with stent placements 06/02/17. Second stent was removed today. Morales catheter will be removed once urine is been clear as per urology. - Continue with Cipro IV, Flagyl IV - Continue pantoprazole IV - Continue Cipro and Flagyl - Continue pain control with Dilaudid as needed. - Wound care nurse for ileostomy education, management Back spasm, pain - Will give baclofen low-dose 10 mg every 8 hours. - Heating pad as needed DVT prop heparin twice a day Discharge Planning Plan to DC when cleared by colorectal surgery. Attending Statement The exam, history, and the medical decision-making described in the above note were completed with the assistance of the mid-level provider. I reviewed and agree with the findings presented. I attest that I had a [id number] encounter with the patient on the same day, and personally performed and documented my assessment and findings in the medical record. Patient complaining of lower back pain since surgery. He stated that he tries not to move. He stated that it just feels different his abdominal area. Patient does not want to look at his abdomen. Denied any nausea or vomiting. Patient remains afebrile. Gen NAD Abd: soft. ND. TTP palpation at surgical site. Negative for any peritoneal signs. Desi in place. Wound is dry clean and intact. ostomy intact. BACK: Positive for paraspinal muscle spasms. Tenderness to palpation of the muscles. A/P Colitis s/p - s/p ileostomy 06/02/17 managed by colorectal surgery. -s/p cystoscopy with placement of bilateral ureteral catheters with stent placements 06/02/17. Second stent was removed today. Morales catheter will be removed once urine is been clear as per urology. -Continue with Cipro, Flagyl, Protonix. -Patient on KENNEL ASSISTANT Dilaudid. Pain being managed by surgery. Back muscle spasm -Will try Flexeril and heating pad. -continue monitor clinically. Gay Marks Jun 04, 2017 11:53 Dori Newton MD Jun 04, 2017 13:56
--- NOTE | 2017-06-04 17:13 | PD.WCN.NOT ---
Wound Consult Description: Follow up POD #2 ileostomy. Communicated with: Patient AMANUEL Blancas Recommendation: Read the information booklet to reinforce teaching Observe staff opening, emptying, and closing pouch Change wafer every 3-5 days and PRN before leaks occur Additional Information: Patient seen on [address] [place] [address] for ostomy assessment and teaching. Ostomy Type: Ileostomy Surgeon: Anthony Lucas MD Date of Surgery: Jun 02, 2017 Complete: Starter kit (Verbal consent obtained. Starter kit delivery is expected on Wednesday06/09/17.), Education materials ([facility] for educational support and reinforcement of teaching), Rx (left on chart), Other (supplies ordered via SPD for patient to go home with at discharge.) Educated patient on: When to change appliance How to measure stoma Stoma appearance Opening and closing pouch Attaching pouch to wafer Removing wafer Applying wafer When to use adhesive removal wipes When to use skin prep How to cleanse peristomal skin How to obtain supplies Me+ program Starter Kit from [employer] and Two piece appliances Support groups Help line Additional information Patient seen on [address] [place] [address] for ostomy assessment and teaching. Patient was sitting up in chair all three times he was visited today by manual writer. Patient states anxiety over the stoma and life in general. Patient states that he does not have suicidal thoughts and no thoughts of harming himself. Patient was asked if he would like to talk with someone while he is here, a psychiatrist, and he said no that he is just overwhelmed with information. Patient proceeds to ask questions and "vent" as he calls it. Patient demonstrated how to open and close pouch, attach wafer to practice stoma, and remove the wafer from practice stoma. Stoma is on the right side abdomen, red, moist, moderately protruding, lumen noted @ 2-3 o'clock, beginning to function with scant amount of soft green effluent coming from lumen. There is brown liquid noted in pouch that was not emptied. Appliance is intact. Stoma is measuring 1 1/4" and will shrink over the next 6-8 weeks. Patient can use size 2 1/4" appliance now and soon a 1 3/4" appliance with open ended pouch. Patient gave verbal consent for starter kit to be sent to the home, however it will not go out until Wednesday. Script left on chart for size 1 3/4" moldable wafer and clear open ended pouch. Hilaria Sandy [facility] Jun 04, 2017 17:13
--- NOTE | 2017-06-04 17:17 | HHI.PR ---
Subjective Remarks C/R Surg POD #2 afebrile, VSS UO good - stent dc'd stoma pink, functioning Objective - Vital Signs Date Time Temp Pulse Resp B/P (MAP) Pulse Ox O2 Delivery O2 Flow Rate FiO2 06/04/17 14:00 16 06/04/17 12:00 97.0 86 116/69 (85) 100 06/03/17 20:56 21 06/03/17 06:10 Nasal Cannula 1.00 Result Diagram: 06/03/1751 06/03/17 0651 Objective Remarks PE alert Abd - soft, stoma pink, RAFAEL mod A/P Assessment and Plan Imp: OOB decr IVF adv diet Anthony Lucas MD Jun 04, 2017 17:17
[2017-06-05] VITALS: BP 113/63; PULSE 70; RESP 18; TEMP 98; O2SAT 98
[2017-06-05] MEDS: metroNIDAZOLE 500 MG INJ 100 ML IV SCH ×3 (01:08→17:34)
[2017-06-05] MEDS: methylPREDNISolone SOD SUCC 40 MG/1 ML VIAL IV PUSH SCH ×2 (01:08→13:44)
[2017-06-05] MEDS: BACLOFEN 10 MG TAB PO PRN ×2 (01:14→09:02)
[2017-06-05] MEDS: HYDROmorphone HCL PCA 6 MG/30 ML IV SCH (02:03)
[2017-06-05] MEDS: PCA - TOTAL MG DILAUDID DELIVERED PER SHIFT OTHER SCH ×2 (04:33→14:00)
[2017-06-05 08:00] VITALS: BP 116/75; PULSE 63; RESP 17; TEMP 96.3; O2SAT 99
[2017-06-05] MEDS: PANTOPRAZOLE SOD 40 MG DELAYED RELEASE TAB PO SCH (08:38)
[2017-06-05] MEDS: HEPARIN SODIUM - SQ 10,000 UNITS/ML VIAL SQ SCH ×2 (08:39→20:19)
[2017-06-05] MEDS: CIPROFLOXACIN 400 MG PREMIX 200 ML IV SCH ×2 (08:39→20:18)
[2017-06-05] MEDS: SODIUM CHLORIDE 0.9% FLUSH 10 ML FLUSH IV FLUSH SCH ×2 (10:15→20:18)
[2017-06-05 12:00] VITALS: BP 109/69; PULSE 90; RESP 16; TEMP 97; O2SAT 98
--- NOTE | 2017-06-05 14:24 | HHI.PR ---
Subjective Remarks POD#3 s/p total proctocolectomy with ileostomy, Crohn's disease Comfortable, would like rodriguez out Objective Vital Signs Date Time Temp Pulse Resp B/P (MAP) Pulse Ox O2 Delivery O2 Flow Rate FiO2 06/05/17 14:00 18 06/05/17 12:00 97.0 90 16 109/69 (82) 98 06/05/17 08:00 96.3 63 17 116/75 (89) 99 06/05/17 04:33 18 06/05/17 02:03 20 06/05/17 00:00 98.0 70 18 113/63 (80) 98 06/04/17 21:42 18 06/04/17 21:33 18 06/04/17 20:00 97.8 79 18 123/76 (92) 98 06/04/17 16:00 97.3 84 16 109/68 (82) 100 I/O 06/04/17 06/04/17 06/04/17 06/05/17 06/05/17 06/05/17 06:59 14:59 22:59 06:59 14:59 22:59 Intake Total 0 ml 1300 ml 940 ml Output Total 960 ml 110 ml 1195 ml 120 ml Balance -960 ml 1190 ml -255 ml -120 ml Intake Oral 0 ml 120 ml IV Total 1300 ml 820 ml Output Urine Total 850 ml 1075 ml Stool Total 0 ml Drainage Total 110 ml 110 ml 120 ml 120 ml # Voids 3 # Bowel Movements 0 0 Result Diagram: 06/03/17 0651 06/03/17 0651 Objective Remarks Abdomen soft, nondistended, tender Wounds clean RAFAEL serosanguinou stoma pink Assessment and Plan Assessment and Plan Rodriguez per Urology Advance diet Decrease IV D/C USER EXPERIENCE DESIGNER Shayla Mena MD Jun 05, 2017 14:24
--- NOTE | 2017-06-05 14:42 | HHI.PR ---
Subjective Remarks Follow-up visit severe colitis, status post ileostomy, urethral stent placement / removal. Patient seen and examined today. Reports he is doing much better. Able to ambulate in the hallway with physical therapy today. Continues to have some pain but manageable with pain medication. However, [employer] SUPERVISOR has been discontinued by surgery. As per nursing patient will need pain medication. Patient denies fevers, chills, nausea, vomiting. Denies chest pain, palpitations. Denies dysuria complaints of discomfort secondary to Morales catheter but output has improved draining clear yellow urine. Objective Vitals Vital Signs Date Time Temp Pulse Resp B/P (MAP) Pulse Ox O2 Delivery O2 Flow Rate FiO2 06/05/17 14:00 18 06/05/17 12:00 97.0 90 16 109/69 (82) 98 06/05/17 08:00 96.3 63 17 116/75 (89) 99 06/05/17 04:33 18 06/05/17 02:03 20 06/05/17 00:00 98.0 70 18 113/63 (80) 98 06/04/17 21:42 18 06/04/17 21:33 18 06/04/17 20:00 97.8 79 18 123/76 (92) 98 06/04/17 16:00 97.3 84 16 109/68 (82) 100 I/O 06/04/17 06/04/17 06/04/17 06/05/17 06/05/17 06/05/17 07:00 15:00 23:00 07:00 15:00 23:00 Intake Total 0 ml 1300 ml 940 ml Output Total 960 ml 110 ml 1195 ml 120 ml Balance -960 ml 1190 ml -255 ml -120 ml Intake Oral 0 ml 120 ml IV Total 1300 ml 820 ml Output Urine Total 850 ml 1075 ml Stool Total 0 ml Drainage Total 110 ml 110 ml 120 ml 120 ml # Voids 3 # Bowel Movements 0 0 Result Diagram: 06/03/17 0651 06/03/17 0651 Imaging Last Impressions Abdomen X-Ray 05/31/17 0000 Signed Impressions: Service Date/Time: Wednesday, May 31, 2017 09:04 - CONCLUSION: Negative Derick Prasad MD FACR Abdomen/Pelvis CT 05/27/17 0120 Signed Impressions: Service Date/Time: May 01:41 - CONCLUSION: Severe left-sided colitis. There is colonic obstruction related to wall thickening and luminal narrowing at the level of the proximal descending colon. Persistent inflammatory changes of the appendix. No abscess or perforation. Alejo Slater MD Objective Remarks GENERAL: This is a well-nourished, well-developed patient, in no apparent distress. SKIN: Warm and dry. Pale. HEENT: Normocephalic. Pupils equal round and reactive. Nose without bleeding. Airway patent. NECK: Trachea midline. No JVD. Supple. CARDIOVASCULAR: Regular rate and rhythm without murmurs, gallops, or rubs. RESPIRATORY: Clear to auscultation. Breath sounds equal bilaterally. No wheezes , rales, or rhonchi. GASTROINTESTINAL: Abdomen soft. Tender to light palpation. Bowel sounds hypoactive. Midabdominal incision with judy clear dry and intact. Ileostomy right quadrant stoma pink and producing liquid stools small amount. RAFAEL drain with moderate amount serous sanguinous fluid. : Morales catheter draining clear yellow colored urine. MUSCULOSKELETAL: Extremities without clubbing, cyanosis, or edema. NEUROLOGICAL: Awake and alert. Oriented to time, place, person. No focal neuro deficit. Moves all extremities. Normal speech. Procedures Status post ileostomy 06/02/17 Status post Cystoscopy and placement of bilateral ureteral catheters 06/02/17 A/P Problem List: (1) Inflammatory bowel disease ICD Code: K52.9 - Noninfective gastroenteritis and colitis, unspecified (2) Exacerbation of ulcerative colitis ICD Code: K51.90 - Ulcerative colitis, unspecified, without complications Assessment and Plan Patient is a 22-year-old male who has a PMH of Crohn's disease admitted for abdominal pain with severe colitis, and colonic obstruction. Status post ileostomy secondary to severe colitis secondary to Crohn's disease Colonic obstruction from severe colitis - Status post ileostomy 06/02/17 managed by colorectal surgery. - Patient also had cystoscopy with placement of bilateral ureteral catheters with stent placements 06/02/17. Second stent was removed today. Morales catheter will be removed once urine is been clear as per urology. Clearing, pending urology to dc. - Continue with Cipro IV, Flagyl IV - Continue pantoprazole IV - Continue pain control with Dilaudid for breakthrough pain, [employer] SUPERVISOR dilaudid dc' d start [place] 11/26 - Wound care nurse for ileostomy education, management - Monitor labs Back spasm, pain - baclofen low-dose 10 mg every 8 hours. - Heating pad as needed - Improved DVT prop heparin twice a day Discussed with patient, nursing, Dr. Newton Discharge Planning Plan to DC when cleared by colorectal surgery. Gay Marks Jun 05, 2017 14:42
[2017-06-05] MEDS: ACETAMINOPHEN/HYDROcodone 325 MG/5 MG TAB PO PRN (14:55)
[2017-06-05 16:00] VITALS: BP 128/81; PULSE 76; RESP 18; TEMP 97.4; O2SAT 99
[2017-06-05 16:22] LABS: AUTOMATED NEUTROPHIL # 7.3 TH/MM3 (1.8-7.7); BASOPHIL % 0.5 % (0.0-2.0); HEMATOCRIT 31.4 % (39.0-51.0); LYMPH % 3.8 % (9.0-44.0); LYMPHOCYTE # 0.3 TH/MM3 (1.0-4.8); MEAN CELL VOLUME 70.4 FL (80.0-100.0); MEAN CORPUSCULAR HEMOGLOBIN 22.5 PG (27.0-34.0); MONO % 6.7 % (0.0-8.0); PLATELET COUNT 291 TH/MM3 (150-450); RED BLOOD COUNT 4.47 MIL/MM3 (4.50-5.90); WHITE BLOOD COUNT 8.2 TH/MM3 (4.0-11.0)
[2017-06-05 16:26] LABS: HEMO FLAGS AUTO DIFF
[2017-06-05 16:54] LABS: OVALOCYTES 1+ (NORMAL); PLATELET ESTIMATE SMEAR NORMAL (NORMAL); PLATELET MORPHOLOGY NORMAL (NORMAL); SCAN/DIFF AUTO DIFF CONFIRMED
[2017-06-05] MEDS ORDERED: HYDROmorphone HCL PF 1 MG/ML VIAL IV PUSH PRN (17:30)
[2017-06-05] MEDS: ACETAMINOPHEN/HYDROcodone 325 MG/10 MG TAB PO PRN ×2 (17:34→22:37)
[2017-06-05 20:00] VITALS: BP 127/90; PULSE 84; RESP 18; TEMP 97.2; O2SAT 99
[2017-06-05 23:33] VITALS: O2SAT 98
[2017-06-06] VITALS: BP 122/70; PULSE 75; RESP 18; TEMP 97.6; O2SAT 100
[2017-06-06] MEDS: methylPREDNISolone SOD SUCC 40 MG/1 ML VIAL IV PUSH SCH ×2 (01:25→12:25)
[2017-06-06] MEDS: metroNIDAZOLE 500 MG INJ 100 ML IV SCH ×3 (01:29→17:33)
[2017-06-06] MEDS: CIPROFLOXACIN 400 MG PREMIX 200 ML IV SCH ×2 (07:39→20:36)
[2017-06-06] MEDS: ACETAMINOPHEN/HYDROcodone 325 MG/10 MG TAB PO PRN ×4 (07:40→20:45)
[2017-06-06] MEDS: HEPARIN SODIUM - SQ 10,000 UNITS/ML VIAL SQ SCH ×2 (07:40→20:36)
[2017-06-06] MEDS: PANTOPRAZOLE SOD 40 MG DELAYED RELEASE TAB PO SCH (07:41)
[2017-06-06] MEDS: SODIUM CHLORIDE 0.9% FLUSH 10 ML FLUSH IV FLUSH SCH ×2 (07:41→20:36)
[2017-06-06 08:00] VITALS: BP 109/70; PULSE 74; RESP 17; TEMP 96.7; O2SAT 98
[2017-06-06 09:34] LABS: HEMATOCRIT 27.7 % (39.0-51.0); MEAN CELL VOLUME 69.6 FL (80.0-100.0); MEAN CORPUSCULAR HEMOGLOBIN 22.4 PG (27.0-34.0); MEAN CORPUSCULAR HGB CONC 32.2 % (32.0-36.0); PLATELET COUNT 259 TH/MM3 (150-450); RED BLOOD COUNT 3.98 MIL/MM3 (4.50-5.90); RED CELL DISTRIBUTION WIDTH 26.8 % (11.6-17.2); WHITE BLOOD COUNT 5.4 TH/MM3 (4.0-11.0)
[2017-06-06 09:35] LABS: REVIEW FLAG FINAL
--- NOTE | 2017-06-06 09:38 | HHI.PR ---
Subjective Remarks Follow-up visit severe colitis, status post ileostomy, urethral stent placement / removal. Patient seen and examined today. Patient states that he is doing much better, pain is now controlled. States that he was in pain yesterday after being seen in the afternoon and the Dilaudid IV really had helped his breakthrough pain but he does not want to take the medication all the time. States that it is now okay with just the [place] was 10/325. Tolerating by mouth diet. Denies nausea, vomiting. Denies fevers, chills. Denies SOB/dyspnea. Denies chest pain, palpitations, headache, dizziness. Objective Vitals Vital Signs Date Time Temp Pulse Resp B/P (MAP) Pulse Ox O2 Delivery O2 Flow Rate FiO2 06/06/17 08:00 96.7 74 17 109/70 (83) 98 06/06/17 00:00 97.6 75 18 122/70 (87) 100 06/05/17 23:33 98 06/05/17 20:00 97.2 84 18 127/90 (102) 99 06/05/17 18:34 18 06/05/17 16:00 97.4 76 18 128/81 (97) 99 06/05/17 15:55 18 06/05/17 14:00 18 06/05/17 12:00 97.0 90 16 109/69 (82) 98 I/O 06/05/17 06/05/17 06/05/17 06/06/17 06/06/17 06/06/17 07:00 15:00 23:00 07:00 15:00 23:00 Intake Total 940 ml 300 ml 300 ml Output Total 1195 ml 120 ml 870 ml 1200 ml Balance -255 ml -120 ml -570 ml -900 ml Intake Oral 120 ml 300 ml IV Total 820 ml 300 ml Output Urine Total 1075 ml 600 ml 1200 ml Stool Total 0 ml 150 ml Drainage Total 120 ml 120 ml 120 ml # Bowel Movements 0 Result Diagram: 06/05/17 1542 06/03/17 0651 Imaging Last Impressions Abdomen X-Ray 05/31/17 0000 Signed Impressions: Service Date/Time: Wednesday, May 31, 2017 09:04 - CONCLUSION: Negative Derick Prasad MD FACR Abdomen/Pelvis CT 05/27/17 0120 Signed Impressions: Service Date/Time: May 01:41 - CONCLUSION: Severe left-sided colitis. There is colonic obstruction related to wall thickening and luminal narrowing at the level of the proximal descending colon. Persistent inflammatory changes of the appendix. No abscess or perforation. Alejo Slater MD Objective Remarks GENERAL: This is a well-nourished, well-developed patient, in no apparent distress. SKIN: Warm and dry. Pale. HEENT: Normocephalic. Pupils equal round and reactive. Nose without bleeding. Airway patent. NECK: Trachea midline. No JVD. Supple. CARDIOVASCULAR: Regular rate and rhythm without murmurs, gallops, or rubs. RESPIRATORY: Clear to auscultation. Breath sounds equal bilaterally. No wheezes , rales, or rhonchi. GASTROINTESTINAL: Abdomen soft. Tender to light palpation. Bowel sounds hypoactive. Midabdominal incision with judy clear dry and intact. Ileostomy right quadrant stoma pink and producing liquid stools small amount. RAFAEL drain with moderate amount serous sanguinous fluid. : Morales catheter draining clear yellow colored urine. MUSCULOSKELETAL: Extremities without clubbing, cyanosis, or edema. NEUROLOGICAL: Awake and alert. Oriented to time, place, person. No focal neuro deficit. Moves all extremities. Normal speech. Procedures Status post ileostomy 06/02/17 Status post Cystoscopy and placement of bilateral ureteral catheters 06/02/17 A/P Problem List: (1) Inflammatory bowel disease ICD Code: K52.9 - Noninfective gastroenteritis and colitis, unspecified (2) Exacerbation of ulcerative colitis ICD Code: K51.90 - Ulcerative colitis, unspecified, without complications Assessment and Plan Patient is a 22-year-old male who has a PMH of Crohn's disease admitted for abdominal pain with severe colitis, and colonic obstruction. Status post ileostomy secondary to severe colitis secondary to Crohn's disease Colonic obstruction from severe colitis - Status post ileostomy 06/02/17 managed by colorectal surgery. - Patient also had cystoscopy with placement of bilateral ureteral catheters with stent placements 06/02/17. Second stent was removed today. Morales catheter will be removed once urine is been clear as per urology. Pending urology to dc. 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 - Heating pad as needed - Improved DVT prop heparin twice a day Discussed with patient, nursing, Dr. Newton Discharge Planning Plan to DC when cleared by colorectal surgery. Gay Marks [facility] Jun 06, 2017 09:38
[2017-06-06 09:52] LABS: BICARBONATE 30.5 MEQ/L (21.0-32.0); POTASSIUM 3.9 MEQ/L (3.5-5.1)
--- NOTE | 2017-06-06 11:24 | HHI.PR ---
Subjective Remarks POD#4 s/p total proctocolectomy with ileostomy, Crohn's disease Comfortable, would like rodriguez out Tolerating fulls Objective Vital Signs Date Time Temp Pulse Resp B/P (MAP) Pulse Ox O2 Delivery O2 Flow Rate FiO2 06/06/17 08:00 96.7 74 17 109/70 (83) 98 06/06/17 00:00 97.6 75 18 122/70 (87) 100 06/05/17 23:33 98 06/05/17 20:00 97.2 84 18 127/90 (102) 99 06/05/17 18:34 18 06/05/17 16:00 97.4 76 18 128/81 (97) 99 06/05/17 15:55 18 06/05/17 14:00 18 06/05/17 12:00 97.0 90 16 109/69 (82) 98 I/O 06/05/17 06/05/17 06/05/17 06/06/17 06/06/17 06/06/17 07:00 15:00 23:00 07:00 15:00 23:00 Intake Total 940 ml 300 ml 300 ml Output Total 1195 ml 120 ml 870 ml 1200 ml Balance -255 ml -120 ml -570 ml -900 ml Intake Oral 120 ml 300 ml IV Total 820 ml 300 ml Output Urine Total 1075 ml 600 ml 1200 ml Stool Total 0 ml 150 ml Drainage Total 120 ml 120 ml 120 ml # Bowel Movements 0 Result Diagram: 06/06/1714 06/06/1714 Objective Remarks Abdomen soft, nondistended, tender Wounds clean RAFAEL serosanguinous stoma pink, output liquid Assessment and Plan Assessment and Plan Rodriguez per Urology Advance diet Home soon Shayla Solorio MD Jun 06, 2017 11:24
[2017-06-06 12:00] VITALS: BP 112/73; PULSE 112; RESP 17; TEMP 97.8; O2SAT 97
[2017-06-06 16:00] VITALS: BP 107/71; PULSE 78; RESP 17; TEMP 97.5; O2SAT 98
[2017-06-06 19:38] VITALS: O2SAT 96
[2017-06-06 20:00] VITALS: BP 115/68; PULSE 68; RESP 18; TEMP 96.5; O2SAT 99
[2017-06-07 00:33] VITALS: BP 114/64; PULSE 57; RESP 18; TEMP 96.2; O2SAT 99
[2017-06-07] MEDS: methylPREDNISolone SOD SUCC 40 MG/1 ML VIAL IV PUSH SCH ×2 (00:56→13:00)
[2017-06-07] MEDS: ACETAMINOPHEN/HYDROcodone 325 MG/10 MG TAB PO PRN ×3 (00:57→16:24)
[2017-06-07] MEDS: metroNIDAZOLE 500 MG INJ 100 ML IV SCH ×3 (01:04→18:00)
[2017-06-07 08:00] VITALS: BP 115/69; PULSE 76; RESP 16; TEMP 96.3; O2SAT 100
[2017-06-07] MEDS: HEPARIN SODIUM - SQ 10,000 UNITS/ML VIAL SQ SCH (08:55)
--- NOTE | 2017-06-07 08:55 | HHI.PR ---
Subjective Remarks Follow-up visit severe colitis, status post ileostomy, urethral stent placement / removal. Patient seen and examined today. Reports his he is doing a lot better but still has the RAFAEL draining a lot of fluid and thinks that he needs to be emptied out. States his pain is manageable but he is afraid of going home and not being able to manage to pain. Discussed extensively with patient that pain is going to subside once all of the inflammation in his abdomen and all the surgical procedures are healed. Denies any nausea, vomiting. Tolerating by mouth diet. Denies SOB/ dyspnea. Denies chest pain, palpitations, headaches , dizziness. Denies fevers, chills. Denies dysuria. Objective Vitals Vital Signs Date Time Temp Pulse Resp B/P (MAP) Pulse Ox O2 Delivery O2 Flow Rate FiO2 06/07/17 08:00 96.3 76 16 115/69 (84) 100 06/07/17 00:33 96.2 57 18 114/64 (81) 99 06/06/17 20:00 96.5 68 18 115/68 (84) 99 06/06/17 19:38 96 06/06/17 16:00 97.5 78 17 107/71 (83) 98 06/06/17 12:00 97.8 112 17 112/73 (86) 97 I/O 06/06/17 06/06/17 06/06/17 06/07/17 06/07/17 06/07/17 07:00 15:00 23:00 07:00 15:00 23:00 Intake Total 300 ml 300 ml 700 ml 100 ml Output Total 1200 ml 2370 ml 2040 ml Balance -900 ml 300 ml -1670 ml -1940 ml Intake Oral 400 ml IV Total 300 ml 300 ml 300 ml 100 ml Output Urine Total 1200 ml 1600 ml 1800 ml Stool Total 450 ml 100 ml Drainage Total 320 ml 140 ml Result Diagram: 06/06/1714 06/06/1714 Imaging Last Impressions Abdomen X-Ray 05/31/17 0000 Signed Impressions: Service Date/Time: Wednesday, May 31, 2017 09:04 - CONCLUSION: Negative Derick Prasad MD FACR Abdomen/Pelvis CT 05/27/17 0120 Signed Impressions: Service Date/Time: May 01:41 - CONCLUSION: Severe left-sided colitis. There is colonic obstruction related to wall thickening and luminal narrowing at the level of the proximal descending colon. Persistent inflammatory changes of the appendix. No abscess or perforation. Alejo Slater MD Objective Remarks GENERAL: This is a well-nourished, well-developed patient, in no apparent distress. SKIN: Warm and dry. Pale. HEENT: Normocephalic. Pupils equal round and reactive. Nose without bleeding. Airway patent. NECK: Trachea midline. No JVD. Supple. CARDIOVASCULAR: Regular rate and rhythm without murmurs, gallops, or rubs. RESPIRATORY: Clear to auscultation. Breath sounds equal bilaterally. No wheezes , rales, or rhonchi. GASTROINTESTINAL: Abdomen soft. Tender to light palpation. Bowel sounds hypoactive. Midabdominal incision with judy clear dry and intact. Ileostomy right quadrant stoma pink and producing moderate amount soft stool. RAFAEL drain with moderate amount serous sanguinous fluid. : Morales catheter draining clear yellow colored urine. MUSCULOSKELETAL: Extremities without clubbing, cyanosis, or edema. NEUROLOGICAL: Awake and alert. Oriented to time, place, person. No focal neuro deficit. Moves all extremities. Normal speech. Procedures Status post ileostomy 06/02/17 Status post Cystoscopy and placement of bilateral ureteral catheters 06/02/17 A/P Problem List: (1) Inflammatory bowel disease ICD Code: K52.9 - Noninfective gastroenteritis and colitis, unspecified (2) Exacerbation of ulcerative colitis ICD Code: K51.90 - Ulcerative colitis, unspecified, without complications Assessment and Plan Patient is a 22-year-old male who has a PMH of Crohn's disease admitted for abdominal pain with severe colitis, and colonic obstruction. Status post ileostomy secondary to severe colitis secondary to Crohn's disease Colonic obstruction from severe colitis - Status post ileostomy 06/02/17 managed by colorectal surgery. - Patient also had cystoscopy with placement of bilateral ureteral catheters with stent placements 06/02/17. Second stent was removed. Morales catheter will be removed once urine is been clear as per urology. Pending urology to [place]. - Continue with Cipro IV, Flagyl IV - Continue pantoprazole IV - Continue pain control with Dilaudid for breakthrough pain, [place] 5/25, 10/ 325 mg - Wound care nurse for ileostomy education, management - Monitor labs Back spasm, pain - baclofen low-dose 10 mg every 8 hours. - Heating pad as needed - Improved DVT prop heparin twice a day Discussed with patient, nursing, Dr. Newton Discharge Planning Plan to DC when cleared by colorectal surgery. Gay Marks Jun 07, 2017 08:55
[2017-06-07] MEDS: SODIUM CHLORIDE 0.9% FLUSH 10 ML FLUSH IV FLUSH SCH (08:56)
[2017-06-07] MEDS: CIPROFLOXACIN 400 MG PREMIX 200 ML IV SCH (08:56)
[2017-06-07] MEDS: PANTOPRAZOLE SOD 40 MG DELAYED RELEASE TAB PO SCH (09:00)
[2017-06-07] MEDS: ACETAMINOPHEN/HYDROcodone 325 MG/5 MG TAB PO PRN (09:00)
--- NOTE | 2017-06-07 10:45 | HHI.FF ---
Face to Face Verification Diagnosis: (1) Ileostomy care (2) S/P ileostomy (3) Exacerbation of ulcerative colitis (4) Inflammatory bowel disease (5) Crohn disease Home Health Nursing Order: Signs/symptoms of disease process Wound care and dressing changes Nursing assessment with vital signs House Worker General Order: To Evaluate: Living conditions/environment, Support services I have seen patient Ricardo Hoover on 06/07/17. My clinical findings support the need for the requested home health care services because: Deconditioned w/ increased weakness Limited ability to care for self Infection w/ risk of complications I certify that my clinical findings support that this patient is homebound because: Post-op weakness Gay Marks Jun 07, 2017 10:45
--- NOTE | 2017-06-07 11:05 | PD.WCN.NOT ---
Wound Consult Description: Follow up POD #2 ileostomy. Communicated with: Patient Recommendation: Writ down any questions for next teaching session Empty pouch when 1/3-1/2 full Change wafer every 3-5 days and PRN before leaks occur Additional Information: Patient seen on [address] [place] [address] for ostomy assessment, teaching, and appliance change. Ostomy Type: Ileostomy Surgeon: Anthony Lucas MD Date of Surgery: Jun 02, 2017 Complete: Starter kit (Starter kit delivery is expected on Wednesday06/09/17.) , Education materials ([employer] kit at bedside for educational support and reinforcement of teaching), Rx (left on chart), Other (supplies ordered via [facility] for patient to go home with at discharge.) Educated patient on: Emptying pouch before removal of barrier. Removing barrier with adhesive removal wipes. Inspecting the back side of the barrier for breakdown. Cleansing the peristomal skin with water only. Allowing skin to dry and inspecting skin for any breakdown. Measuring stoma size for correct appliance size. Using 1-2 sprays of Cavilon skin prep if desired. Warming barrier prior to application by placing under arm or thigh. Molding barrier to fit stoma. Holding hand over appliance for warmth. Attaching pouch to barrier. Closing pouch. Additional information Patient seen on [address] [place] [address] for ostomy assessment, teaching, and appliance change. Patient was just finishing up breakfast when entering room. Patient states "Oh I shouldn't have eaten eggs huh?" It was explained to the patient that he should be eating what he likes and worry about the odor later. Foam tape was removed from around the barrier using adhesive removal wipes. There is a jackie drain noted distally to the barrier with a dry saturated telfa dressing that was removed with the foam tape. Patient assisted check writer salesperson in the removal of the barrier with adhesive removal wipes. Once barrier was completely removed, the back was inspected for breakdown and found to have been doing so evenly. Peristomal skin was cleansed with water and measured @ 1 1/8" round, red, moist , moderately protruding, mildly edematous, functioning with dark green/brown thick effluent coming from lumen noted at center towards 2-3 o'clock. Mucocutaneous junction is noted with circumferential sutures otherwise unremarkable. Peristomal skin is unremarkable and was sprayed with Cavilon skin prep and allowed to further air dry. Patient took pouch and closed the bottom while warming the barrier underneath arm. Appliance in size 1 3/4" was molded to fit around stoma and placed on peristomal skin. Pouch was applied and patient held his hand over the appliance to warm for further activation of the polymers to assist in adherence. Tabs surrounding barrier were removed and smoothed out with a small portion cut out to allow for jackie drain to be visualized. Hilaria Sandy [facility] Jun 07, 2017 11:05
[2017-06-07 12:00] VITALS: BP 118/67; PULSE 90; RESP 16; TEMP 96.8; O2SAT 100
[2017-06-07] MEDS ORDERED: HYDR-3583 PO (15:16)
[2017-06-07] MEDS ORDERED: PANT40TA3 PO (15:16)
[2017-06-07] MEDS ORDERED: PRED5TAB PO (15:30)
[2017-06-07] MEDS ORDERED: PRED1 PO (15:30)
[2017-06-07] MEDS ORDERED: PRED2.5T PO (15:30)
[2017-06-07] MEDS ORDERED: PRED10 PO (15:30)
[2017-06-07] MEDS ORDERED: BACL10TA PO (15:35)
--- NOTE | 2017-06-07 15:42 | HHI.DS ---
Discharge Summary Admission Date May 27, 2017 at 02:18 Discharge Date: Jun 07, 2017 Admitting Diagnosis colitis, appendicitis (1) Inflammatory bowel disease ICD Code: K52.9 - Noninfective gastroenteritis and colitis, unspecified (2) Exacerbation of ulcerative colitis ICD Code: K51.90 - Ulcerative colitis, unspecified, without complications Procedures Status post ileostomy 06/02/17 Status post Cystoscopy and placement of bilateral ureteral catheters 06/02/17 Brief History - From Admission Written by Marical Gonzalez, acting as scribe for Dr. Roman on 05/27/17 at 08 :54. This is a 22 year-old male with known history of Crohn's disease to has been admitted to hospital multiple times in the last few months for exacerbation. Last episode was due to unable to obtain medications. Patient was discharged home with medications in hand and prescriptions to provide him full treatment. Patient did obtain patient care assistance at time. Patient was doing well until yesterday when he started developing progressive pain throughout the day where became intolerable so he came to emergency department for evaluation. Patient has CT scan done which that show severe left-sided colitis. There is a colonic obstruction related to the wall thickening and luminal narrowing at the level of the proximal distal colon. Persistent inflammatory changes of the appendix. No abscess or formation. Because of those reasons is recommended that the patient be admitted for further evaluation management. Patient states that his bowel movements have become more infrequent, stool has been more solid. He has not noticed any blood in his stool at this time. CBC/BMP: 06/06/17 0814 06/06/17 0814 Significant Findings Laboratory Tests Test 06/05/17 15:42 06/06/17 08:14 Red Blood Count 4.47 MIL/MM3 (4.50-5.90) 3.98 MIL/MM3 (4.50-5.90) Hemoglobin 10.1 GM/DL (13.0-17.0) 8.9 GM/DL (13.0-17.0) Hematocrit 31.4 % (39.0-51.0) 27.7 % (39.0-51.0) Mean Corpuscular Volume 70.4 FL (80.0-100.0) 69.6 FL (80.0-100.0) Mean Corpuscular Hemoglobin 22.5 PG (27.0-34.0) 22.4 PG (27.0-34.0) Red Cell Distribution Width 26.0 % (11.6-17.2) 26.8 % (11.6-17.2) Neutrophils (%) (Auto) 89.0 % (16.0-70.0) Lymphocytes (%) (Auto) 3.8 % (9.0-44.0) Lymphocytes # (Auto) 0.3 TH/MM3 (1.0-4.8) Ovalocytes 1+ (NORMAL) Mean Platelet Volume 6.9 FL (7.0-11.0) Creatinine 0.55 MG/DL (0.60-1.30) Random Glucose 116 MG/DL (74-106) Calcium Level 8.1 MG/DL (8.5-10.1) Imaging Last Impressions Abdomen X-Ray 05/31/17 0000 Signed Impressions: Service Date/Time: Wednesday, May 31, 2017 09:04 - CONCLUSION: Negative Derick Prasad MD FACR Abdomen/Pelvis CT 05/27/17 0120 Signed Impressions: Service Date/Time: May 01:41 - CONCLUSION: Severe left-sided colitis. There is colonic obstruction related to wall thickening and luminal narrowing at the level of the proximal descending colon. Persistent inflammatory changes of the appendix. No abscess or perforation. Alejo Slater MD PE at Discharge GENERAL: This is a well-nourished, well-developed patient, in no apparent distress. SKIN: Warm and dry. Pale. HEENT: Normocephalic. Pupils equal round and reactive. Nose without bleeding. Airway patent. NECK: Trachea midline. No JVD. Supple. CARDIOVASCULAR: Regular rate and rhythm without murmurs, gallops, or rubs. RESPIRATORY: Clear to auscultation. Breath sounds equal bilaterally. No wheezes , rales, or rhonchi. GASTROINTESTINAL: Abdomen soft. Tender to light palpation. Bowel sounds hypoactive. Midabdominal incision with judy clear dry and intact. Ileostomy right quadrant stoma pink and producing moderate amount soft stool. RAFAEL drain with moderate amount serous sanguinous fluid. : Morales catheter draining clear yellow colored urine. MUSCULOSKELETAL: Extremities without clubbing, cyanosis, or edema. NEUROLOGICAL: Awake and alert. Oriented to time, place, person. No focal neuro deficit. Moves all extremities. Normal speech. Pt update on day of discharge Follow-up visit severe colitis, status post ileostomy, urethral stent placement / removal. Patient seen and examined today. Reports his he is doing a lot better but still has the RAFAEL draining a lot of fluid and thinks that he needs to be emptied out. States his pain is manageable but he is afraid of going home and not being able to manage to pain. Discussed extensively with patient that pain is going to subside once all of the inflammation in his abdomen and all the surgical procedures are healed. Denies any nausea, vomiting. Tolerating by mouth diet. Denies SOB/ dyspnea. Denies chest pain, palpitations, headaches , dizziness. Denies fevers, chills. Denies dysuria. Hospital Course Patient is a 22-year-old male who has a PMH of Crohn's disease admitted for abdominal pain with severe colitis, and colonic obstruction. Colonic obstruction from severe colitis S/P ileostomy, 06/02/17, with Cystoscopy and placement of bilateral ureteral catheters with removal secondary. Patient was also treated with Cipro IV and Flagyl IV. Wound care nurse/ostomy nurse had been educating the patient to care for his ileostomy. Patient post op without any complications. He continues to have a RAFAEL drain were and it is going to remain until he sees Dr. Lucas for follow-up appointment. She still has some abdominal judy post surgical, which will also remain and will be removed on his follow-up appointment with Dr. Lucas. Plan for patient is to go home with home health care wound ostomy nurse for continued follow-up on ileostomy management. Patient will continue short-term use of prednisone, will not use any IV antibiotics as his colitis have been resolved from colectomy. Patient has met maximal benefits of hospitalization. Clinically stable for discharge. Pt Condition on Discharge: Good Discharge Disposition: Disch w/ Home Health Serv Discharge Time: > 30 minutes Discharge Instructions DIET: Follow Instructions for: As Tolerated, No Restrictions Activities you can perform: Regular-No Restrictions Activities to Avoid: Driving for 24 hrs, Lifting/Bending, Strenuous Activity, Driving Follow up Referrals: Colorectal Surgery - 1 Week [facility] with Anthony Lucas MD PCP Follow-up - 1 Week SNF/[facility]/ with [facility] New Medications: Prednisone (Prednisone) 1 Mg Tab 1 MG PO DAILY for Inflammation for 1 Day, #1 TAB 0 Refills start 06/15/17 Prednisone (Prednisone) 2.5 Mg Tab 2.5 MG PO DAILY for Inflammation for 1 Day, #1 TAB 0 Refills Start 06/14/17 Prednisone (Prednisone) 5 Mg Tab 5 MG PO DAILY for Inflammation for 3 Days, #3 TAB 0 Refills Start 06/11/17 Prednisone (Prednisone) 10 Mg Tab 10 MG PO DAILY for Inflammation, #3 TAB 0 Refills Start 06/08/17 Baclofen (Baclofen) 10 Mg Tab 10 MG PO Q8HR PRN for Back Spasms, #6 TAB Hydrocodone/Acetaminophen (Hydrocodone-Acetamin 10-325 mg) 10 Mg-325 Mg Tablet 1-2 TAB PO Q4H PRN for PAIN SCALE 6 TO 10, #30 TAB Pantoprazole (Pantoprazole) 40 Mg Tab 40 MG PO DAILY for Dyspepsia, #30 TAB Gay Marks Jun 07, 2017 15:42
--- NOTE | 2017-06-07 15:52 | HHI.PR ---
Subjective Remarks C/R Surg POD #5 afebrile, VSS UO good stoma pink, functioning drain moderate Objective - Vital Signs Date Time Temp Pulse Resp B/P (MAP) Pulse Ox O2 Delivery O2 Flow Rate FiO2 06/07/17 12:00 96.8 90 16 118/67 (84) 100 06/03/17 20:56 21 Result Diagram: 06/06/1781306/06/1714 Objective Remarks PE alert Abd - soft, stoma pink, RAFAEL mod serosang A/P Assessment and Plan Imp: OOB decr IVF adv diet dc to home rto 1 week Anthony Lucas MD Jun 07, 2017 15:52
[2017-06-07 16:00] VITALS: BP 135/71; PULSE 85; RESP 16; TEMP 97; O2SAT 96
--- NOTE | 2017-06-09 22:54 | MP ---
cc: CATHERINE MONZON M.D. DATE OF SURGERY: 06/02/2017 PREOPERATIVE DIAGNOSIS: History of Crohn's colitis. PROCEDURE: Exploratory laparotomy with total abdominal proctocolectomy and ileostomy. POSTOPERATIVE DIAGNOSIS: Severe acute colitis, probably Crohn's disease. SURGEON: Dr. Monzon. EXTRUSION DIE REPAIRER: Dr. Mirza Wan. DESCRIPTION OF PROCEDURE: The patient was placed in the supine position. After adequate general anesthesia, his legs were placed in [place] stirrups and supported appropriately. Abdomen and perineum were then prepped with Betadine solution and draped in the usual sterile fashion. With Dr. Wan's assistance the abdomen was opened through a midline incision. Upon entering the abdomen there was some straw-colored ascites. The colon was extremely inflamed and chronically swollen in the sigmoid and left colon. There appeared to be dense adhesions adhering the left colon to the retroperitoneum. The right colon was less severely inflamed but definitely irritated and abnormal to palpation. The small bowel was run from the ligament of Treitz down to the ileocecal valve and felt to be pretty normal. Liver and gallbladder were unremarkable. Great vessels were of normal caliber and fairly soft to palpation. First the right colon was mobilized medially by dividing along the white line of Toldt. The right ureter was identified and carefully preserved. Dissection then proceeded up the right gutter taking down attachments to the hepatic flexure entering the lesser sac and taking the gastrocolic omentum off the transverse colon. The rectosigmoid was then mobilized medially again dividing the white line of Toldt, identifying the left ureter, ureteral stent and preserving it. Dissection proceeded up the left gutter mobilizing the left colon off the retroperitoneum. There were extremely dense fibrotic adhesions between the left colon mesentery, the Gerota's fascia and the inferior border of the pancreas. Ureteral stents were placed and additional identification of the ureter was made possible. After the ureter from this inflammatory process, a plane was finally developed freeing the splenic attachments and the stomach from the dissection, allowing for completing the colectomy. The bowel was then divided in the terminal ileum using the ASHLEY stapling device. The major vascular pedicles taken between Kellys obtaining hemostasis with Vicryl ties. In the region of the pelvis presacral space was opened and the bowel dissected off the presacral fascia, trying to preserve the presacral nerves. Anteriorly the cul-de-sac was opened and the bowel dissected off the prostatic capsule as far down as the pelvic floor. The lateral rectal stalks were taken with electrocautery. Next Dr. Wan went to the perineal aspect of the patient and after finishing the abdominal procedure abdominal dissection. Dr. Wan made an elliptical incision around the anal opening and completed the proctectomy with an intersphincteric dissection, delivering the specimen through the perineal incision, after all attachments had been severed. The abdomen and pelvis then irrigated copiously with normal saline and a good hemostasis was achieved. Dr. Wan closed the perineal wound with several interrupted 3-0 Vicryl sutures, and closed the pelvic floor and the subcu tissues as well as the skin. Finally a circular stab wound was created in the right side of the abdomen and the end of the ileum brought up through the stab wound without tension and with good blood supply. The omentum was passed down the left gutter and filled the pelvis. Dr. Wan finished the perineal incision with interrupted subcu stitches and then a running subcuticular suture for the skin. Sarbjit-Crowe drain was placed down into the pelvis and brought up through a stab wound in the right lower quadrant secured to the skin with a nylon suture. The midline incision was closed anatomically using a #1 PDS suture to reapproximate the midline fascia. The subcu tissues irrigated copiously and the skin closed with surgical judy. The wound area washed with normal saline and dried, sterile dressing of Telfa and gauze applied. Finally the ASHLEY staple line was removed from the end of the ileum and the stoma matured in the usual [place] fashion by placing a row of interrupted chromic catgut sutures around the circumference. At completion the stoma did appear to be patent through the fascial level and prolapsed easily. Stoma appliance fitted over the new stoma. The patient tolerated the procedure quite well and was brought to recovery room in stable condition. Sponge and needle counts were correct at the end of the procedure. MD ISAIAH Arredondo/SHELBIE /4:47 PM /10:30 PM
== END 2017-06-07 18:35 | disposition home health service (06) | DRG 330 ==
LOC: PHED 23:23 → PHEDA 05-27 02:18 → PH3A 05-27 03:31 → N07B 05-28 17:26 → HCIS 06-02 19:34 → N07A 06-03 16:15
PROVIDERS: ADMIT Family Medicine; ATTEND Family Medicine
PROC: 0DJD8ZZ Inspection of Lower Intestinal Tract, Via Natural or Artificial Opening Endoscopic (ICD-10-PCS; principal; 2017-05-31 17:10)
PROC: 0DTH0ZZ Resection of Cecum, Open Approach (ICD-10-PCS; 2017-06-02)
PROC: 0D1B0Z4 Bypass Ileum to Cutaneous, Open Approach (ICD-10-PCS; 2017-06-02)
PROC: 0DTK0ZZ Resection of Ascending Colon, Open Approach (ICD-10-PCS; 2017-06-02)
PROC: 0DTL0ZZ Resection of Transverse Colon, Open Approach (ICD-10-PCS; 2017-06-02)
PROC: 0DTM0ZZ Resection of Descending Colon, Open Approach (ICD-10-PCS; 2017-06-02)
PROC: 0DTN0ZZ Resection of Sigmoid Colon, Open Approach (ICD-10-PCS; 2017-06-02)
PROC: 0DTP0ZZ Resection of Rectum, Open Approach (ICD-10-PCS; 2017-06-02)
PROC: 0T788DZ Dilation of Bilateral Ureters with Intraluminal Device, Via Natural or Artificial Opening Endoscopic (ICD-10-PCS; 2017-06-02 16:41)
DX: K50.112 Crohn's disease of large intestine with intestinal obstruction (principal); D50.9 Iron deficiency anemia, unspecified; Z79.52 Long term (current) use of systemic steroids; M62.830 Muscle spasm of back
CPT/HCPCS: 74000; 74020; 74177; 80048; 80053; 81001; 82948; 83690; 85025; 85027; 85610; 88307; 88309; 96361; 96374; 96375; C1769; J0131; J0744; J1100; J1170; J1644; J1885; J2250; J2270; J2370; J2405; J2543; J2710; J2920; J3010; J7030; J7120; Q9967